=== PATIENT | male | born 1970 | race Caucasian/White ===

== ENCOUNTER 2021-01-08 19:58 | Observation (INO) | payer MEDICAID, OTHER, SELFPAY ==
--- NOTE | ~2021-01-08 | XR_ITS ---
EXAMINATION: XR CHEST CLINICAL INFORMATION: Cough COMPARISON: None TECHNIQUE: Frontal view of the chest was obtained. FINDINGS: No significant abnormality is noted involving the heart, lungs, mediastinum, bony thorax or soft tissues. XR/XR chest 1V IMPRESSION: Unremarkable examination.
--- NOTE | ~2021-01-08 | CT_ITS ---
EXAMINATION: CT HEAD WITHOUT CONTRAST CT CERVICAL SPINE WITHOUT CONTRAST CLINICAL INFORMATION: Altered mental status. Fall COMPARISON: None. TECHNIQUE: Imaging was performed from the skull base to vertex without intravenous administration of contrast. In addition, helical noncontrast CT imaging was acquired through the cervical spine and source images were reviewed along with axial reconstructions and sagittal and coronal MPRs. [This CT examination was performed using dose optimization techniques as appropriate, variously including the following: *Automated exposure control *Adjustment of mA and/or kV according to patient size (this includes techniques or standardized protocols for targeted exams where dose is matched to indication/reason for exam; i.e. extremities or head) *Use of iterative reconstruction technique] DLP: 1091 mGy-cm FINDINGS: HEAD: No intracranial mass, hemorrhage, or midline shift is visualized. The ventricles and sulci are age-appropriate. No extra-axial collections are identified. Scattered mucosal thickening in the inferior frontal sinuses bilateral maxillary and ethmoid sinuses. Small volume of mucosal thickening in the left sphenoid sinus. Mastoid air cells and middle ear cavities are normally aerated. CERVICAL SPINE: There is no evidence of acute cervical spine fracture. Vertebral bodies remain normal in height. Cervical vertebrae have normal alignment. Cervical disc heights are normal. The facet joints are normal. Minor degenerative lipping at the posterior uncinate process at C4-C5 and C5-C6. Normal foramina though remain open bilaterally. No pre- or paravertebral soft tissue abnormality is identified. Limited assessment of the lung apices is unremarkable. CT/CT cervical spine wo con IMPRESSION: 1. No acute intracranial pathology. 2. No CT evidence of acute cervical spine fracture or traumatic subluxation 3. Sinus disease.
[2021-01-08 20:08] VITALS: BP 134/78; PULSE 66; RESP 16; TEMP 36.9; O2SAT 97; BMI 26.6
[2021-01-08 20:13] VITALS: BP 156/98; PULSE 82; O2SAT 97
--- NOTE | 2021-01-08 20:30 | PC.NURSE ---
PT ARRIVES VIA AMBULANCE AFTER FALLING AND HITTING BACK OF HEAD WITH NO ACTIVE BLEEDING. PT IS ON BLOOD THINNERS FROM HX OF CVA. 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 PT ARRIVES ALERT RESPIRATIONS EASY, N/L, SKIN W/D. IN ROOM FOR EVAL..
--- NOTE | 2021-01-08 20:40 | ECG_ITS ---
Test Reason : FALL Blood Pressure : / mmHG Vent. Rate : 063 BPM Atrial Rate : 063 BPM P-R Int : 174 ms QRS Dur : 092 ms QT Int : 400 ms P-R-T Axes : 034 044 020 degrees QTc Int : 409 ms Normal sinus rhythm Normal ECG No previous ECGs available Referred By: Purvi Saini Electronically Signed By:Dawit Malone
--- NOTE | 2021-01-08 20:44 | ED_ITS ---
HPI - Fall General Chief Complaint: Fall Stated Complaint: dizzy, fall, blood thinners Time Seen by Provider: 01/08/21 20:40 History of Present Illness HPI Narrative: Patient 50 years old history of coronary artery disease. Presented today having syncopal episode patient was sitting there feeling lightheaded dizzy. There is no chest pain. Subsequently fell hit the top of his head. There was almost lost consciousness.. Patient complaining of minimal nausea. No vomiting. No focal weakness. Patient is from home. No cough no congestion or upper respiratory symptoms no diaphoresis. Patient not on any blood thinners. Related Data Allergies Allergy/AdvReac Type Severity Reaction Status Date / Time No Known Allergies Allergy Verified 01/08/21 20:40 Review of Systems Review of Systems: Constitutional: No Weight loss, No Fever, No Chills, No Night Sweats, No Fatigue, No Malaise ENT/Mouth: No Hearing loss, No Ear Pain, No Nasal Congestion, No Sinus Pain, No Hoarseness, No sore throat, No Rhinorrhea, No Swallowing Difficulty Eyes: No Eye Pain, No Swelling, No Redness, No Foreign Body, No Discharge, No Vision Changes Cardiovascular: No Chest Pain, No SOB, No Dyspnea on Exertion, No Orthopnea, No Edema, No Palpitations Respiratory: No Cough, No Sputum, No Wheezing, No Smoke Exposure, No Dyspnea Gastrointestinal: No Nausea, No Vomiting, No Diarrhea, No Constipation, No abdominal Pain, No Hematochezia, No Melena Genitourinary: no irregular bleeding, No Dysuria, No Urinary Frequency, No Hematuria, No Urinary Incontinence, No Urgency, No Flank Pain, No Urinary Flow Changes, No Hesitancy Musculoskeletal: No joint pain, No Myalgias, No Joint Swelling Skin: No Skin Lesions, No rash Neuro: Positive Weakness, No Numbness, No Paresthesias, No Loss of Consciousness, positive Dizziness, No Headache Psych: No Anxiety/Panic, No Depression, No SI/HI/AH/VH, No Social Issues, Heme/Lymph: No Bruising, No Bleeding,No Lymphadenopathy Endocrine: No Polyuria, No Polydipsia, No Temperature Intolerance [facility] Past Medical History Attestation statement: The following information was validated with the patient. Medical History CVA (cerebral vascular accident) Social History Social History Advance Directives: No Physical Exam Vital Signs: Vital Signs: Last Vital Signs Temp 97.9 F 01/08/21 22:13 Pulse 68 01/09/21 00:00 Resp 16 01/09/21 00:00 BP 128/72 01/09/21 00:00 Pulse Ox 99 01/08/21 22:13 Body Mass Index 26.6 Appearance: Alert. Oriented X3. No acute distress. Eyes: Pupils equal, round and reactive to light. ENT: Pharynx normal. Neck: Normal inspection. C-spine immobilized secondary to distracting injury. No lymph nodes noted. No crepitus CVS: Normal heart rate and rhythm. Pulses normal. Normal S1 and S2 Respiratory: No respiratory distress. Breath sounds normal. No Wheezing. No rales Abdomen: Soft and nontender. No rigidity. No distention. good BS x4 Skin: Skin warm and dry. Normal skin color. Normal skin turgor. Extremities: No lower extremity edema. Neurovascular intact to all extremities. No Lacerations. No Rash Neuro: Oriented X 3. No motor deficit. No sensory deficit. Moving all extermities. No slurred speech MDM - Fall MDM Narrative Medical decision making narrative: Patient previous history of GA. Positive near syncopal episode. Still feel lightheaded after IV fluid monitoring. Will admit for observation overnight. Currently in stable condition. Patient did not have chest pain at the time. Medical Records Attestation: I reviewed the patient's medical records. Lab Data Attestation: I reviewed the patient's lab results. Result diagrams: 01/08/21 20:54 01/08/21 20:54 Labs: Lab Results 01/08/21 01/08/21 01/08/21 Range/Units 20:54 20:54 20:54 WBC 6.5 (4.8-10.8) X10*3/uL RBC 4.60 (4.60-5.80) X10*6/uL Hgb 14.3 (14.0-18.0) g/dl Hct 43.1 (42-52) % MCV 93.7 (80-98) fL MCH 31.1 (27.0-33.0) pg MCHC 33.2 (31.0-36.0) g/dl RDW 12.4 (11.0-16.0) % Plt Count 276 (160-400) X10*3/uL MPV 10.0 (9.4-12.4) fL Immature Gran % (Auto) 0.2 (0.0-0.4) % Neut % (Auto) 66.0 (45-73) % Lymph % (Auto) 24.8 (20-40) % [place] % (Auto) 7.3 (2-11) % Eos % (Auto) 1.2 (0-4) % Baso % (Auto) 0.5 (0-2) % Lymph # (Auto) 1.6 (1.2-4.9) X10*3/uL [place] # (Auto) 0.5 (0.1-1.2) X10*3/uL Eos # (Auto) 0.1 (0.0-0.4) X10*3/uL Baso # (Auto) 0.0 (0.0-0.2) X10*3/uL Abs Immat Gran (auto) 0.01 (0.00-0.03) X10*3/uL Absolute Neuts (auto) 4.3 (2.0-8.3) X10*3/uL Absolute Nucleated RBC 0.000 (0.0-0.012) X10*3/uL Nucleated RBC % (auto) 0.0 (0.0-0.2) /100WBC PT 12.8 (10.8-13.0) SEC INR 1.1 (0.9-1.1) Sodium 140 (135-145) mmol/L Potassium 4.0 (3.3-5.1) mmol/L Chloride 104 (96-108) mmol/L Carbon Dioxide 28 (22-29) mmol/L Anion Gap 12 (12-20) BUN 20 H (9-16) mg/dL Creatinine 1.10 (0.5-1.4) mg/dL Estim Creat Clear Calc 74.1 Estimated GFR > 60 Random Glucose 101 (60-115) mg/dL Calcium 9.0 (8.4-10.2) mg/dL Total Bilirubin 0.6 (0.0-1.0) mg/dL Direct Bilirubin 0.2 (0.0-0.5) mg/dL AST 16 (5-37) U/L ALT 14 (0-40) U/L Alkaline Phosphatase 77 (39-117) U/L Troponin I High Sens (<3.5-35.0) ng/L Total Protein 7.1 (6.5-8.0) g/dL Albumin 4.4 (3.5-5.0) g/dL 01/08/21 Range/Units 20:54 WBC (4.8-10.8) X10*3/uL RBC (4.60-5.80) X10*6/uL Hgb (14.0-18.0) g/dl Hct (42-52) % MCV (80-98) fL MCH (27.0-33.0) pg MCHC (31.0-36.0) g/dl RDW (11.0-16.0) % Plt Count (160-400) X10*3/uL MPV (9.4-12.4) fL Immature Gran % (Auto) (0.0-0.4) % Neut % (Auto) (45-73) % Lymph % (Auto) (20-40) % [place] % (Auto) (2-11) % Eos % (Auto) (0-4) % Baso % (Auto) (0-2) % Lymph # (Auto) (1.2-4.9) X10*3/uL [place] # (Auto) (0.1-1.2) X10*3/uL Eos # (Auto) (0.0-0.4) X10*3/uL Baso # (Auto) (0.0-0.2) X10*3/uL Abs Immat Gran (auto) (0.00-0.03) X10*3/uL Absolute Neuts (auto) (2.0-8.3) X10*3/uL Absolute Nucleated RBC (0.0-0.012) X10*3/uL Nucleated RBC % (auto) (0.0-0.2) /100WBC PT (10.8-13.0) SEC INR (0.9-1.1) Sodium (135-145) mmol/L Potassium (3.3-5.1) mmol/L Chloride (96-108) mmol/L Carbon Dioxide (22-29) mmol/L Anion Gap (12-20) BUN (9-16) mg/dL Creatinine (0.5-1.4) mg/dL Estim Creat Clear Calc Estimated GFR Random Glucose (60-115) mg/dL Calcium (8.4-10.2) mg/dL Total Bilirubin (0.0-1.0) mg/dL Direct Bilirubin (0.0-0.5) mg/dL AST (5-37) U/L ALT (0-40) U/L Alkaline Phosphatase (39-117) U/L Troponin I High Sens < 3.5 (<3.5-35.0) ng/L Total Protein (6.5-8.0) g/dL Albumin (3.5-5.0) g/dL ECG Data Interpretation: Sinus heart rate is 60 NM QRS QT within normal limits is no acute ST segment elevation noted. Discharge Plan Discharge Clinical Impression: Near syncope Patient Disposition: Admitted as Observation
--- NOTE | 2021-01-08 21:08 | PC.NURSE ---
LABS DRAWN TO LAB FOR ERICH.
[2021-01-08 21:10] LABS: Basophils Percent Auto 0.5 % (0-2); Eosinophils Absolute Auto 0.1 X10*3/uL (0.0-0.4); Eosinophils Percent Auto 1.2 % (0-4); Hematocrit 43.1 % (42-52); Hemoglobin 14.3 g/dl (14.0-18.0); Imm Gran Abs Auto 0.01 X10*3/uL (0.00-0.03); Imm Gran Pct Auto 0.2 % (0.0-0.4); Lymphocytes Absolute Auto 1.6 X10*3/uL (1.2-4.9); Lymphocytes Percent Auto 24.8 % (20-40); MANUAL DIFF FLAG NO; Mean Corpuscular HGB Conc 33.2 g/dl (31.0-36.0); Mean Corpuscular Hemoglobin 31.1 pg (27.0-33.0); Mean Corpuscular Volume 93.7 fL (80-98); Monocytes Absolute Auto 0.5 X10*3/uL (0.1-1.2); Monocytes Percent Auto 7.3 % (2-11); Neutrophils Absolute Auto 4.3 X10*3/uL (2.0-8.3); Platelet Count 276 X10*3/uL (160-400); Red Cell Distribution Width 12.4 % (11.0-16.0); White Blood Count 6.5 X10*3/uL (4.8-10.8)
[2021-01-08 21:21] LABS: INTERNATIONAL NORM RATIO 1.1 (0.9-1.1); Prothrombin Time 12.8 SEC (10.8-13.0)
[2021-01-08 21:31] LABS: Alanine Aminotransferase 14 U/L (0-40); Albumin Level 4.4 g/dL (3.5-5.0); Alkaline Phosphatase 77 U/L (39-117); Anion Gap 12 (12-20); Aspartate Amino Transferase 16 U/L (5-37); Bilirubin Direct 0.2 mg/dL (0.0-0.5); Bilirubin Total 0.6 mg/dL (0.0-1.0); Blood Urea Nitrogen 20 mg/dL (9-16); Carbon Dioxide 28 mmol/L (22-29); Chloride 104 mmol/L (96-108); Creatinine Clr Calc Pharmacy 74.1; Estimated Glomerular Filt Rate > 60; Glucose Random 101 mg/dL (60-115); Sodium 140 mmol/L (135-145); Total Protein 7.1 g/dL (6.5-8.0)
[2021-01-08 21:36] LABS: Troponin-I High Sensitivity < 3.5 ng/L (<3.5-35.0)
[2021-01-08 22:09] VITALS: BP 122/76; BP 131/71; PULSE 65
[2021-01-08 22:11] VITALS: BP 141/66; PULSE 69
[2021-01-08 22:13] VITALS: BP 141/66; PULSE 70; RESP 18; TEMP 36.6; O2SAT 99
[2021-01-09] VITALS (8 sets, daily range): BP systolic 122–130; BP diastolic 62–82; PULSE 62–77; RESP 16; TEMP 35.9; O2SAT 98–99
--- NOTE | 2021-01-09 00:18 | PC.NURSE ---
pt denies any complaints. Ice pack applied to head. pt denies any complaints.
--- NOTE | 2021-01-09 01:00 | P.HPHOSP_ITS ---
History of Present Illness Date of Service: 01/09/21 Chief Complaint: Near syncope 50-year-old male with a past medical history of coronary artery disease presented to the hospital with a chief complaint of dizziness/fall. Patient mentioned that he was sitting in the chair and subsequently felt lightheaded and dizzy and fell on the floor, hit his head. Denied any chest pain palpitations. Denies any vomiting. Denies any fever chills. Denies any cough. Mentions that he has been drinking enough fluids. Denies any GI or symptoms. Review of all other systems is negative except mentioned above ER course: Per ER team patient's exam was nonfocal, CT head and CT spine showed no acute findings, troponin negative, EKG nonischemic, requested for an admission for observation under telemetry. PENDING SALE TO [facility] Medical History CVA (cerebral vascular accident) Social History Alcohol intake: never Smoking Status: Never smoker service: No Current occupational status: unemployed Meds Allergies Allergy/AdvReac Type Severity Reaction Status Date / Time No Known Allergies Allergy Verified 01/08/21 20:40 Active Medications: Current Medications Generic Name Dose Route Start Last Admin Trade Name Freq PRN Reason Stop Dose Admin Acetaminophen 650 mg 01/09/21 00:57 Acetaminophen 325 Mg Tablet PO Q6H PRN Pain, Mild (Pain Scale 1-3) Pharmacy Consult 1 each 01/09/21 00:34 Consult Rx Perform Med Rec MISCELLANE ONCE PRN Consult order Sodium Chloride 3 ml 01/09/21 08:00 0.9 % Sodium Chloride Flush 3 Ml Syringe [facility] Medications Medication Instructions Recorded Confirmed Last Taken Type HIGH BLOOD PRESSURE MEDICATION 01/09/21 Unknown History aspirin 81 mg PO DAILY 01/09/21 01/09/21 Unknown History Physical Exam Vital Signs and Narrative: Vital Signs: Last Vital Signs Temp 97.9 F 01/08/21 22:13 Pulse 68 01/09/21 00:00 Resp 16 01/09/21 00:00 BP 128/72 01/09/21 00:00 Pulse Ox 99 01/08/21 22:13 Body Mass Index 26.6 Gen: Appears be in no acute distress HEENT: NCAT, Moist mucosa. Pulmonary: Vesicular breath sounds, fair air entry CVS: Normal S1-S2 Abdomen: BS+, Soft, Nontender Extremities: Warm well perfused Neuro: Alert and awake. Grossly nonfocal Results Labs CBC and Chem 7: 01/09/21 06:32 01/09/21 06:32 Labs: Laboratory Results - last 24 hr 01/08/21 01/08/21 01/08/21 20:54 20:54 20:54 MCV 93.7 MCH 31.1 MCHC 33.2 RDW 12.4 Plt Count 276 MPV 10.0 Immature Gran % (Auto) 0.2 Neut % (Auto) 66.0 Lymph % (Auto) 24.8 [place] % (Auto) 7.3 Eos % (Auto) 1.2 Baso % (Auto) 0.5 Lymph # (Auto) 1.6 [place] # (Auto) 0.5 Eos # (Auto) 0.1 Baso # (Auto) 0.0 Abs Immat Gran (auto) 0.01 Absolute Neuts (auto) 4.3 Absolute Nucleated RBC 0.000 Nucleated RBC % (auto) 0.0 PT 12.8 INR 1.1 Anion Gap 12 Estim Creat Clear Calc 74.1 Estimated GFR > 60 Random Glucose 101 Calcium 9.0 Total Bilirubin 0.6 Direct Bilirubin 0.2 AST 16 ALT 14 Alkaline Phosphatase 77 Troponin I High Sens Total Protein 7.1 Albumin 4.4 01/08/21 20:54 MCV MCH MCHC RDW Plt Count MPV Immature Gran % (Auto) Neut % (Auto) Lymph % (Auto) [place] % (Auto) Eos % (Auto) Baso % (Auto) Lymph # (Auto) [place] # (Auto) Eos # (Auto) Baso # (Auto) Abs Immat Gran (auto) Absolute Neuts (auto) Absolute Nucleated RBC Nucleated RBC % (auto) PT INR Anion Gap Estim Creat Clear Calc Estimated GFR Random Glucose Calcium Total Bilirubin Direct Bilirubin AST ALT Alkaline Phosphatase Troponin I High Sens < 3.5 Total Protein Albumin Imaging Radiologist's Impressions: Impressions Cervical Spine CT 01/08/21 20:40 IMPRESSION: 1. No acute intracranial pathology. 2. No CT evidence of acute cervical spine fracture or traumatic subluxation 3. Sinus disease. Chest X-Ray 01/08/21 20:40 IMPRESSION: Unremarkable examination. Head CT 01/08/21 20:40 IMPRESSION: 1. No acute intracranial pathology. 2. No CT evidence of acute cervical spine fracture or traumatic subluxation 3. Sinus disease. Assessment and Plan (1) Near syncope: Status: Resolved 50-year-old male with a past medical history of CAD presented to the hospital with a chief complaint of dizziness/fall. Near syncope: Nonfocal exam. Imaging negative for any fracture or acute findings. EKG nonischemic. Troponins negative. Second troponin pending. Fall precautions Telemetry Cardiology consult Echocardiogram Will obtain orthostatic vitals DVT prophylaxis: SCD boots Code status: Full code
[2021-01-09 03:13] LABS: COVID-19 Test Negative (Negative); IDNOW Serial# 9DD0AD1C
[2021-01-09 03:34] LABS: Troponin-I High Sensitivity < 3.5 ng/L (<3.5-35.0)
--- NOTE | 2021-01-09 06:34 | PC.NURSE ---
LAB IN ROOM FOR LAB DRAWN. PT DENIES ANY COMPLAINTS AT THIS TIME. VS OBTAINED. PT ON MONITOR WITH HR 68 WITH NSR. PT AWAITING FOR ROOM ASSIGNMENT.
[2021-01-09 06:55] LABS: MANUAL DIFF FLAG NO
[2021-01-09 07:10] LABS: Basophils Percent Auto 0.4 % (0-2); Eosinophils Absolute Auto 0.2 X10*3/uL (0.0-0.4); Eosinophils Percent Auto 3.4 % (0-4); Hematocrit 43.4 % (42-52); Hemoglobin 14.5 g/dl (14.0-18.0); Imm Gran Abs Auto 0.01 X10*3/uL (0.00-0.03); Imm Gran Pct Auto 0.1 % (0.0-0.4); Lymphocytes Absolute Auto 2.2 X10*3/uL (1.2-4.9); Lymphocytes Percent Auto 33.2 % (20-40); Mean Corpuscular HGB Conc 33.4 g/dl (31.0-36.0); Mean Corpuscular Hemoglobin 31.3 pg (27.0-33.0); Mean Corpuscular Volume 93.7 fL (80-98); Mean Platelet Volume 10.3 fL (9.4-12.4); Monocytes Absolute Auto 0.6 X10*3/uL (0.1-1.2); Monocytes Percent Auto 9.1 % (2-11); Neutrophils Absolute Auto 3.6 X10*3/uL (2.0-8.3); Neutrophils Percent Auto 53.8 % (45-73); Platelet Count 269 X10*3/uL (160-400); Red Blood Count 4.63 X10*6/uL (4.60-5.80); Red Cell Distribution Width 12.3 % (11.0-16.0); White Blood Count 6.7 X10*3/uL (4.8-10.8)
[2021-01-09 07:24] LABS: Anion Gap 11 (12-20); Blood Urea Nitrogen 21 mg/dL (9-16); Carbon Dioxide 29 mmol/L (22-29); Chloride 106 mmol/L (96-108); Creatinine Clr Calc Pharmacy 80.7; Estimated Glomerular Filt Rate > 60; Glucose Random 100 mg/dL (60-115); Potassium 4.1 mmol/L (3.3-5.1); Sodium 142 mmol/L (135-145)
[2021-01-09] MEDS: 0.9 % Sodium Chloride Flush 3 ML SYRINGE IVFLUSH (08:24)
[2021-01-09] MEDS: Acetaminophen 325 MG TABLET 650 MG PO (08:30)
--- NOTE | 2021-01-09 09:07 | PM.CNCAR ---
History of Present Illness History of Present Illness Date of Service: 01/09/21 Requesting physician: Mikhail Miller Chief complaint: Near syncope Narrative: 50-year-old gentleman with reported h/o CAD presenting for dizziness. He was watching television when he developed sudden onset dizziness which was a spinning sensation. He felt he will pass out but did not pass out. He has symptoms with head movement. He has no diplopia. also has vertigo although denies viral illness in her and himself. No CP or SOB. Review of Systems Review of Systems: Dizziness PMFSH Past Medical History Medical History CVA (cerebral vascular accident) Social History Social History Alcohol intake: never Smoking Status: Never smoker Use of substances other than those prescribed or required for medical reasons: No Advance Directives: No service: No Current occupational status: unemployed Meds Allergies Allergy/AdvReac Type Severity Reaction Status Date / Time No Known Allergies Allergy Verified 01/08/21 20:40 Active Medications: Current Medications Generic Name Dose Route Start Last Admin Trade Name Freq PRN Reason Stop Dose Admin Acetaminophen 650 mg 01/09/21 00:57 01/09/21 08:30 Acetaminophen 325 Mg Tablet PO 650 mg Q6H PRN Administration Pain, Mild (Pain Scale 1-3) Pharmacy Consult 1 each 01/09/21 00:34 Consult Rx Perform Med Rec MISCELLANE ONCE PRN Consult order Sodium Chloride 3 ml 01/09/21 08:00 01/09/21 08:24 0.9 % Sodium Chloride Flush 3 Ml Syringe IVFLUSH 3 ml QSHIFT ANN Administration Home Medications Medication Instructions Recorded Confirmed Last Taken Type HIGH BLOOD PRESSURE MEDICATION 01/09/21 Unknown History aspirin 81 mg PO DAILY 01/09/21 01/09/21 Unknown History Physical Exam Vital Signs: Vital Signs: Last Vital Signs Temp 97.9 F 01/08/21 22:13 Pulse 77 01/09/21 08:31 Resp 16 01/09/21 08:31 BP 130/78 01/09/21 08:31 Pulse Ox 98 01/09/21 08:31 Body Mass Index 26.6 GENERAL APPEARANCE: in no acute distress, well developed, well nourished. HEENT: unremarkable. HEAD: normocephalic, atraumatic. NECK/THYROID: no carotid bruit, no jugular venous distention. SKIN: no suspicious lesions, warm and dry. HEART: no murmurs, regular rate and rhythm, S1, S2 normal. LUNGS: clear to auscultation bilaterally. ABDOMEN: normal, bowel sounds present, soft, nontender, nondistended. EXTREMITIES: no clubbing, cyanosis, or edema. PERIPHERAL PULSES: equal. NEUROLOGIC: nonfocal, alert and oriented. No diplopia PSYCH: mood/affect full range. Results Labs and Meds Result diagrams: 01/09/21 06:32 01/09/21 06:32 Lab results: Laboratory Results - last 24 hr 01/08/21 01/08/21 01/08/21 20:54 20:54 20:54 WBC 6.5 RBC 4.60 Hgb 14.3 Hct 43.1 MCV 93.7 MCH 31.1 MCHC 33.2 RDW 12.4 Plt Count 276 MPV 10.0 Immature Gran % (Auto) 0.2 Neut % (Auto) 66.0 Lymph % (Auto) 24.8 [place] % (Auto) 7.3 Eos % (Auto) 1.2 Baso % (Auto) 0.5 Lymph # (Auto) 1.6 [place] # (Auto) 0.5 Eos # (Auto) 0.1 Baso # (Auto) 0.0 Abs Immat Gran (auto) 0.01 Absolute Neuts (auto) 4.3 Absolute Nucleated RBC 0.000 Nucleated RBC % (auto) 0.0 PT 12.8 INR 1.1 Sodium 140 Potassium 4.0 Chloride 104 Carbon Dioxide 28 Anion Gap 12 BUN 20 H Creatinine 1.10 Estim Creat Clear Calc 74.1 Estimated GFR > 60 Random Glucose 101 Calcium 9.0 Total Bilirubin 0.6 Direct Bilirubin 0.2 AST 16 ALT 14 Alkaline Phosphatase 77 Troponin I High Sens Total Protein 7.1 Albumin 4.4 COVID-19 (RYAN) COVID-19 Clin Com 01/08/21 01/09/21 01/09/21 20:54 02:39 02:50 WBC RBC Hgb Hct MCV MCH MCHC RDW Plt Count MPV Immature Gran % (Auto) Neut % (Auto) Lymph % (Auto) [place] % (Auto) Eos % (Auto) Baso % (Auto) Lymph # (Auto) [place] # (Auto) Eos # (Auto) Baso # (Auto) Abs Immat Gran (auto) Absolute Neuts (auto) Absolute Nucleated RBC Nucleated RBC % (auto) PT INR Sodium Potassium Chloride Carbon Dioxide Anion Gap BUN Creatinine Estim Creat Clear Calc Estimated GFR Random Glucose Calcium Total Bilirubin Direct Bilirubin AST ALT Alkaline Phosphatase Troponin I High Sens < 3.5 < 3.5 Total Protein Albumin COVID-19 (RYAN) Negative COVID-19 Clin Com See Note 01/09/21 01/09/21 06:32 06:32 WBC 6.7 RBC 4.63 Hgb 14.5 Hct 43.4 MCV 93.7 MCH 31.3 MCHC 33.4 RDW 12.3 Plt Count 269 MPV 10.3 Immature Gran % (Auto) 0.1 Neut % (Auto) 53.8 Lymph % (Auto) 33.2 [place] % (Auto) 9.1 Eos % (Auto) 3.4 Baso % (Auto) 0.4 Lymph # (Auto) 2.2 [place] # (Auto) 0.6 Eos # (Auto) 0.2 Baso # (Auto) 0.0 Abs Immat Gran (auto) 0.01 Absolute Neuts (auto) 3.6 Absolute Nucleated RBC 0.000 Nucleated RBC % (auto) 0.0 PT INR Sodium 142 Potassium 4.1 Chloride 106 Carbon Dioxide 29 Anion Gap 11 L BUN 21 H Creatinine 1.01 Estim Creat Clear Calc 80.7 Estimated GFR > 60 Random Glucose 100 Calcium 9.0 Total Bilirubin Direct Bilirubin AST ALT Alkaline Phosphatase Troponin I High Sens Total Protein Albumin COVID-19 (RYAN) COVID-19 Clin Com Imaging Radiologist's impression: Impressions Cervical Spine CT 01/08/21 20:40 IMPRESSION: 1. No acute intracranial pathology. 2. No CT evidence of acute cervical spine fracture or traumatic subluxation 3. Sinus disease. Chest X-Ray 01/08/21 20:40 IMPRESSION: Unremarkable examination. Head CT 01/08/21 20:40 IMPRESSION: 1. No acute intracranial pathology. 2. No CT evidence of acute cervical spine fracture or traumatic subluxation 3. Sinus disease. Assessment and Plan (1) Near syncope: Status: Acute Pleasant 50-year-old gentleman presenting with dizziness which is more like vertigo. He is denying any viral illness. Clearly he is getting symptoms when he moves his head. No arrhythmia noticed. Blood workup and biomarkers are normal. EKG did not show any significant issues otherwise. He has known history of coronary disease but has no symptoms right now. Please treat with meclizine. For his reported history of coronary disease he should be on baby aspirin and statin. Thank you for allowing me to participate in the care of your patient. Please feel free to contact me if you have any questions.
[2021-01-09] MEDS: Meclizine HCl 25 MG TABLET PO (10:09)
[2021-01-09] MEDS: Ibuprofen 400 MG TABLET PO (11:34)
--- NOTE | 2021-01-09 11:45 | MHC.CM.PN ---
PT REPORTS HE LIVES ALONE AND HAS NO SERVICES OR DME. PT STATES HE ONLY MOVED TO [place]PLE WEE[place] AGO [place] SO HE DOES NOT YET HAVE A PCP OR HEALTH INSURANCE. PT REPORTS HE DRIVES HIMSELF TO APPOINTMENTS. PT DOES NOT HAVE A HCP. EDUCATION PROVIDED, PT DECLINED TO COMPLETE ONE TODAY. CM WILL SEND A REFERRAL TO [facility] TO ASSIST PT IN APPLYING FOR [facility] PT WILL DC HOME WITH NO SERVICES PT WILL SELF ARRANGE TRANSPORT
--- NOTE | 2021-01-09 12:43 | PC.NURSE ---
pt reported headache and has been medicated for pain. He is sleeping, will reassess when pt awake.
--- NOTE | 2021-01-09 16:40 | P.DS_ITS ---
DS: Providers Provider Date of Service: 01/09/21 Date of admission: 01/09/21 00:57 Primary care physician: None Physician Consults: 01/09/21 00:57 Consult to Cardiology Routine Consulting Provider: Dawit Malone Reason for consultation: Near syncope DS: Diagnosis Discharge Diagnosis (1) Near syncope: Status: Acute DS: Medications Discharge Medications Home Medications: Home Medications Medication Instructions Recorded Confirmed HIGH BLOOD PRESSURE MEDICATION 01/09/21 aspirin 81 mg PO DAILY 01/09/21 01/09/21 DS: Summary Hospital Course Hospital Course: History of presenting illness Chief Complaint: Near syncope 50-year-old male with a past medical history of coronary artery disease presented to the hospital with a chief complaint of dizziness/fall. Patient mentioned that he was sitting in the chair and subsequently felt lightheaded and dizzy and fell on the floor, hit his head. Denied any chest pain palpitations. Denies any vomiting. Denies any fever chills. Denies any cough. Mentions that he has been drinking enough fluids. Denies any GI or symptoms. Review of all other systems is negative except mentioned above ER course: Per ER team patient's exam was nonfocal, CT head and CT spine showed no acute findings, troponin negative, EKG nonischemic, requested for an admission for observation under telemetry. Hospital course Patient presented to emergency room with symptoms of dizziness like spinning of room, he denied any associated symptoms of URI no runny nose nose sinus symptoms no earache no ringing in the ears no hearing loss, patient dizziness completely resolved while he was in the ER after receiving 1 dose of meclizine, patient c omplained of mild headache for which she received Tylenol and Motrin with complete resolution of symptoms at present patient feels at baseline and is feeling ready to be discharged home, patient was evaluated by Cardiology, his noted to have abnormal troponin no EKG findings no a arrhythmias, orthostatic blood pressures are normal, therefore patient is being discharged home with recommendation to continue aspirin and home medication patient with known history of coronary artery disease is supposed to be on aspirin and statins , patient is on aware of his home medication recommended to follow-up with PCP to discuss his home medications. Time Spent with Patient Time attestation: Total time spent providing and/or coordinating discharge services: Discharge coordination time: Greater than 30 minutes Physical Exam Vital Signs: Vital Signs: Last Vital Signs Temp 97.9 F 03/31/21 22:13 Pulse 62 01/09/21 11:32 Resp 16 01/09/21 11:32 BP 125/62 01/09/21 11:32 Pulse Ox 98 01/09/21 11:32 Body Mass Index 26.6 General patient resting comfortably in no acute distress. Oral mucosa moist Neck is supple no JVD. CVS regular rate rhythm, Respiratory lungs clear to auscultation, no respiratory distress, no wheeze, no rhonchi. Gastrointestinal abdomen soft, nontender, bowel sounds audible, no no guarding , no rigidity. Extremities no edema. Neuro no nystagmus, speech clear, no cerebellar sign, normal motor is strength and tone bilateral upper and lower extremity Skin no rash DS: Data Data Completed and Pending Labs on day of discharge: Laboratory Results - last 24 hr 01/08/21 01/08/21 01/08/21 20:54 20:54 20:54 WBC 6.5 RBC 4.60 Hgb 14.3 Hct 43.1 MCV 93.7 MCH 31.1 MCHC 33.2 RDW 12.4 Plt Count 276 MPV 10.0 Immature Gran % (Auto) 0.2 Neut % (Auto) 66.0 Lymph % (Auto) 24.8 [place] % (Auto) 7.3 Eos % (Auto) 1.2 Baso % (Auto) 0.5 Lymph # (Auto) 1.6 [place] # (Auto) 0.5 Eos # (Auto) 0.1 Baso # (Auto) 0.0 Abs Immat Gran (auto) 0.01 Absolute Neuts (auto) 4.3 Absolute Nucleated RBC 0.000 Nucleated RBC % (auto) 0.0 PT 12.8 INR 1.1 Sodium 140 Potassium 4.0 Chloride 104 Carbon Dioxide 28 Anion Gap 12 BUN 20 H Creatinine 1.10 Estim Creat Clear Calc 74.1 Estimated GFR > 60 Random Glucose 101 Calcium 9.0 Total Bilirubin 0.6 Direct Bilirubin 0.2 AST 16 ALT 14 Alkaline Phosphatase 77 Troponin I High Sens Total Protein 7.1 Albumin 4.4 COVID-19 (RYAN) COVID-19 Clin Com 01/08/21 01/09/21 01/09/21 20:54 02:39 02:50 WBC RBC Hgb Hct MCV MCH MCHC RDW Plt Count MPV Immature Gran % (Auto) Neut % (Auto) Lymph % (Auto) [place] % (Auto) Eos % (Auto) Baso % (Auto) Lymph # (Auto) [place] # (Auto) Eos # (Auto) Baso # (Auto) Abs Immat Gran (auto) Absolute Neuts (auto) Absolute Nucleated RBC Nucleated RBC % (auto) PT INR Sodium Potassium Chloride Carbon Dioxide Anion Gap BUN Creatinine Estim Creat Clear Calc Estimated GFR Random Glucose Calcium Total Bilirubin Direct Bilirubin AST ALT Alkaline Phosphatase Troponin I High Sens < 3.5 < 3.5 Total Protein Albumin COVID-19 (RYAN) Negative COVID-19 Clin Com See Note 01/09/21 01/09/21 06:32 06:32 WBC 6.7 RBC 4.63 Hgb 14.5 Hct 43.4 MCV 93.7 MCH 31.3 MCHC 33.4 RDW 12.3 Plt Count 269 MPV 10.3 Immature Gran % (Auto) 0.1 Neut % (Auto) 53.8 Lymph % (Auto) 33.2 [place] % (Auto) 9.1 Eos % (Auto) 3.4 Baso % (Auto) 0.4 Lymph # (Auto) 2.2 [place] # (Auto) 0.6 Eos # (Auto) 0.2 Baso # (Auto) 0.0 Abs Immat Gran (auto) 0.01 Absolute Neuts (auto) 3.6 Absolute Nucleated RBC 0.000 Nucleated RBC % (auto) 0.0 PT INR Sodium 142 Potassium 4.1 Chloride 106 Carbon Dioxide 29 Anion Gap 11 L BUN 21 H Creatinine 1.01 Estim Creat Clear Calc 80.7 Estimated GFR > 60 Random Glucose 100 Calcium 9.0 Total Bilirubin Direct Bilirubin AST ALT Alkaline Phosphatase Troponin I High Sens Total Protein Albumin COVID-19 (RYAN) COVID-19 Clin Com Discharge Plan Discharge Patient Disposition: Home, Self-Care Referrals: Physician,None [Primary Care Provider] - Discharge Medications: Continued aspirin 81 mg Tablet,Delayed Release (Dr/Ec) 81 mg PO DAILY RF: 0 HIGH BLOOD PRESSURE MEDICATION RF: 0 Discharge Orders: Discharge Order (Routine); Ordered 01/09/21 Ordered By: Mikhail Miller Diet: low fat, low cholesterol Activity on Discharge: As tolerated Stand Alone Forms: Patient Portal Discharge page Care Plan Goals: Follow-up with primary care physician Health Concerns: Vertigo resolved Plan of Treatment: Follow-up with primary care physician in 1 week take home medication as previously prescribed by primary care physician and Cardiology
--- NOTE | 2021-01-09 16:50 | PC.NURSE ---
Patient brought up from ED for admission, upon arrival to floor, MD said patient was cleared for discharge. PER MD nothing further needed to be done, admission assessment not completed, VSS, SINUS RHYTHM on monitor. Patient was educated on following up with PCP, IV removed, cardiac cath lab radiology technologist removed, and given discharge instructions.
== END 2021-01-09 16:55 | disposition home or self-care (01) ==
LOC: HO.ED 01-09 00:34 → HO.EDOVER 01-09 07:33 → HO.S3 01-09 13:57
PROVIDERS: Admitting Provider Hospitalist; Emergency Provider Emergency Medicine Emergency Medical Services; Visit Provider Hospitalist
DX: R55 Syncope and collapse (principal); R41.82 Altered mental status, unspecified; S09.90XA Unspecified injury of head, initial encounter; W01.198A Fall on same level from slipping, tripping and stumbling with subsequent striking against other object, initial encounter; Y93.9 Activity, unspecified; Y92.009 Unspecified place in unspecified non-institutional (private) residence as the place of occurrence of the external cause; Y99.8 Other external cause status; R07.9 Chest pain, unspecified; R05 Cough; I25.10 Atherosclerotic heart disease of native coronary artery without angina pectoris; Z20.822 Contact with and (suspected) exposure to COVID-19; Z79.899 Other long term (current) drug therapy
CPT/HCPCS: 36415; 70450; 71045; 72125; 80048; 80076; 84484; 85025; 85610; 87635; 93005; 99218; 99285

== ENCOUNTER 2021-02-04 00:01 | Inpatient (IN) | payer MEDICAID, OTHER, SELFPAY ==
--- NOTE | ~2021-02-04 | MR_ITS ---
EXAMINATION: MR BRAIN WITHOUT CONTRAST CLINICAL INFORMATION: Possible CVA. COMPARISON: Head CT 02/04/2021. TECHNIQUE: Multiplanar, multisequence imaging of the brain was performed without intravenous contrast. FINDINGS: Punctate foci of elevated diffusion signal are seen within the right precentral gyrus on series 5 image 28/31 which may represent small foci of acute ischemia. No territorial infarction is seen. A minimal amount of nonspecific periventricular T2 hyperintensity is noted. No significant microangiopathy is seen. The ventricles are normal in size without evidence of hydrocephalus. The major arterial flow voids are preserved at the skull base. The orbital contents appear normal. There is scattered paranasal sinus mucosal thickening. MR/MR head/brain wo con IMPRESSION: Punctate foci of elevated diffusion signal in the right precentral gyrus suspected to represent small foci of acute ischemia. No other intracranial abnormality is seen.
--- NOTE | ~2021-02-04 | CT_ITS ---
EXAMINATION: CT HEAD WITHOUT CONTRAST CLINICAL INFORMATION: Dizziness. Right lateral thigh numbness. COMPARISON: 01/08/2021 TECHNIQUE: Contiguous axial imaging was performed from the skull base to vertex without intravenous contrast. This CT examination was performed using dose optimization techniques as appropriate, variously including the following: * Automated exposure control * Adjustment of mA and/or kV according to patient size (this includes techniques or standardized protocols for targeted exams where dose is matched to indication/reason for exam; i.e. extremities or head) Use of iterative reconstruction technique DLP: 741 mGy-cm. FINDINGS: There is no evidence of acute intracranial hemorrhage or territorial infarction. No abnormal mass effect or midline shift is seen. Nails to white matter differentiation is well preserved. No extra-axial fluid collections are identified. No hydrocephalus. No significant volume loss. There is no abnormal attenuation within the brain parenchyma. The osseous structures and soft tissues are normal. Mild opacification of the ethmoid air cells. The mastoid air cells and visualized portions of the paranasal sinuses are otherwise well aerated. CT/CT head/brain wo con IMPRESSION: No acute intracranial pathology.
--- NOTE | ~2021-02-04 | US_ITS ---
EXAMINATION: US EXTRACRANIAL CAROTID DUPLEX, BILATERAL CLINICAL INFORMATION: Dizziness COMPARISON: None TECHNIQUE: Real-time ultrasound and Doppler techniques (integrating B-mode 2-D vascular images, Doppler spectral analysis and color-flow Doppler imaging) were utilized to interrogate the extracranial carotid arteries, the vertebral arteries and proximal subclavian arteries bilaterally. The degree of stenosis is determined by criteria similar to NASCET. FINDINGS: Right Side: 1. There is no atherosclerotic plaque seen in the bifurcation/proximal ICA region. 2. The common carotid artery PSV proximally is 99 cm/s and distally 95 cm/s. 3. The proximal internal carotid artery velocities are 74 cm/s systolic and 30 cm/s diastolic. 4. The proximal external carotid artery PSV is 100 cm/s. 5. The vertebral artery shows antegrade flow. 6. The subclavian artery waveforms are normal. Left Side: 1. There is no atherosclerotic plaque seen in the bifurcation/proximal ICA region. 2. The common carotid artery PSV proximally is 93 cm/s and distally 73 cm/s. 3. The proximal internal carotid artery velocities are 52 cm/s systolic and 21 cm/s diastolic. 4. The proximal external carotid artery PSV is 90 cm/s. 5. The vertebral artery shows antegrade flow. 6. The subclavian artery waveforms are normal. US/US carotid duplex BI IMPRESSION: 1. RIGHT: Normal right internal carotid artery without atherosclerotic plaque or hemodynamically significant stenosis. 2. LEFT: Normal left internal carotid artery without atherosclerotic plaque or hemodynamically significant stenosis.
[2021-02-04 00:10] VITALS: BP 150/130; BP 154/81; PULSE 81; RESP 24; TEMP 36.7; O2SAT 96; BMI 24.8
--- NOTE | 2021-02-04 00:11 | ECG_ITS ---
Test Reason : DIZZINESS Blood Pressure : / mmHG Vent. Rate : 077 BPM Atrial Rate : 077 BPM P-R Int : 164 ms QRS Dur : 088 ms QT Int : 358 ms P-R-T Axes : 038 058 037 degrees QTc Int : 405 ms Normal sinus rhythm Normal ECG When compared to the previous EKG of No significant changes seen Referred By: Liana Medeiros Electronically Signed By:SOURAV BOYD MD
--- NOTE | 2021-02-04 00:13 | ED.NEUROSD ---
HPI - Neuro Symptoms/Deficit General Chief Complaint: Dizziness Stated Complaint: STROKE Time Seen by Provider: 02/04/21 00:11 Source: patient Mode of arrival: EMS History of Present Illness HPI Narrative: 50-year-old male with history of prior stroke approximately 8 years ago with right-sided deficits call the ambulance for high blood pressure, feeling dizzy, and complaints lateral right lower extremity numbness that has since almost completely resolved. During evaluation on the right side patient confirms that the decrease in strength as well as the evaluation of pronator drift is consistent with his prior findings after his previous stroke. Otherwise, patient denies any fevers, chills, recent illness, chest pain/palpitations and states he has not gotten his COVID-19 vaccine because he is ?afraid?. Related Data Home Medications Medication Instructions Recorded Confirmed aspirin 81 mg PO DAILY 01/09/21 02/04/21 hydrochlorothiazide 12.5 mg PO DAILY 02/04/21 02/04/21 Allergies Allergy/AdvReac Type Severity Reaction Status Date / Time gluten Allergy Rash Verified 02/04/21 00:41 Penicillins Allergy Rash Verified 02/04/21 00:40 Review of Systems Review of Systems: Pertinent positives and negatives as stated in HPI 10 point review systems is otherwise negative. [facility] Past Medical History Source: nursing notes reviewed Medical History CVA (cerebral vascular accident) Social History Social History Alcohol intake: never Smoking Status: Never smoker Advance Directives: No service: No Current occupational status: unemployed Physical Exam Vital Signs: Vital Signs: Last Vital Signs Temp 98.1 F 02/04/21 00:15 Pulse 92 02/04/21 02:21 Resp 18 02/04/21 02:21 BP 144/89 H 02/04/21 02:21 Pulse Ox 97 02/04/21 02:21 Body Mass Index 24.8 VITAL SIGNS: Reviewed. GENERAL: Well developed, well nourished, in no acute distress. HEAD: Normocephalic/atraumatic EYES: PERRLA, EOMI, patient has asymmetrical pupils at baseline (right greater than left) OROPHARYNX: no oral lesions noted, posterior pharynx clear NECK: Supple, no adenopathy LUNGS: Normal breath sounds. No adventitious sounds or accessory muscle use. SpO2<98> CARDIOVASCULAR: Regular rate and rhythm without noted murmurs ABDOMEN: Soft, non-tender, non-distended with bowel sounds. NEUROLOGIC: Alert and oriented x 4. Please refer to NIHSS. No acute findings Course Course Course Narrative: 50-year-old male with history and clinical presentation of lightheadedness and transient numbness of the right lower extremity at the lateral thigh that had almost completely resolved upon arrival to the emergency department. Otherwise, there were no neurological findings and so the decision was made to evaluate outside of the stroke protocol. Review of all investigations is negative for any acute findings such as infection, anemia, electrolyte abnormalities to better explain patient's presentation. On review of his documentation he was evaluated on 01/17 for similar concerns of lightheaded/dizzy and was admitted overnight at that time for observation of near syncopal episode. There is no noted truncal ataxia or tremor, however will contact Neurology and discuss the case for possible observation admission. I discussed this case with Neurology who recommends observation admission with MRI and carotid Dopplers. I then discussed this case with the inpatient hospitalist team who will admit the patient. MDM - Neuro Symptoms/Deficit Lab Data Result diagrams: 02/04/21 00:44 02/04/21 00:44 Labs: Lab Results 02/04/21 02/04/21 02/04/21 Range/Units 00:09 00:44 00:44 WBC 7.8 (4.8-10.8) X10*3/uL RBC 4.42 L (4.60-5.80) X10*6/uL Hgb 14.0 (14.0-18.0) g/dl Hct 41.3 L (42-52) % MCV 93.4 (80-98) fL MCH 31.7 (27.0-33.0) pg MCHC 33.9 (31.0-36.0) g/dl RDW 12.1 (11.0-16.0) % Plt Count 311 (160-400) X10*3/uL MPV 10.0 (9.4-12.4) fL Immature Gran % (Auto) 0.3 (0.0-0.4) % Neut % (Auto) 55.4 (45-73) % Lymph % (Auto) 30.5 (20-40) % [place] % (Auto) 10.0 (2-11) % Eos % (Auto) 3.3 (0-4) % Baso % (Auto) 0.5 (0-2) % Lymph # (Auto) 2.4 (1.2-4.9) X10*3/uL [place] # (Auto) 0.8 (0.1-1.2) X10*3/uL Eos # (Auto) 0.3 (0.0-0.4) X10*3/uL Baso # (Auto) 0.0 (0.0-0.2) X10*3/uL Abs Immat Gran (auto) 0.02 (0.00-0.03) X10*3/uL Absolute Neuts (auto) 4.3 (2.0-8.3) X10*3/uL Absolute Nucleated RBC 0.000 (0.0-0.012) X10*3/uL Nucleated RBC % (auto) 0.0 (0.0-0.2) /100WBC PT (10.8-13.0) SEC INR (0.9-1.1) Sodium 139 (135-145) mmol/L Potassium 4.1 (3.3-5.1) mmol/L Chloride 105 (96-108) mmol/L Carbon Dioxide 24 (22-29) mmol/L Anion Gap 14 (12-20) BUN 19 H (9-16) mg/dL Creatinine 1.01 (0.5-1.4) mg/dL Estim Creat Clear Calc 98.1 Estimated GFR > 60 POC Glucose 116 H (60-115) mg/dL Random Glucose 110 (60-115) mg/dL Calcium 9.3 (8.4-10.2) mg/dL Magnesium (1.6-2.6) mg/dL Total Bilirubin 0.2 (0.0-1.0) mg/dL AST 15 (5-37) U/L ALT 15 (0-40) U/L Alkaline Phosphatase 83 (39-117) U/L Troponin I High Sens (<3.5-35.0) ng/L Total Protein 7.0 (6.5-8.0) g/dL Albumin 4.1 (3.5-5.0) g/dL Urine Color Urine Appearance Urine pH (5.0-8.0) Ur Specific [place] (1.005-1.025) Urine Protein (NEG-TRACE) MG/DL Urine Glucose (UA) (NEG) MG/DL Urine Ketones (NEG) MG/DL Urine Blood (NEG) Urine Nitrite (NEG) Ur Leukocyte Esterase (NEG) COVID-19 (RYAN) (Negative) COVID-19 Clin Com 02/04/21 02/04/21 02/04/21 Range/Units 00:44 00:44 00:44 WBC (4.8-10.8) X10*3/uL RBC (4.60-5.80) X10*6/uL Hgb (14.0-18.0) g/dl Hct (42-52) % MCV (80-98) fL MCH (27.0-33.0) pg MCHC (31.0-36.0) g/dl RDW (11.0-16.0) % Plt Count (160-400) X10*3/uL MPV (9.4-12.4) fL Immature Gran % (Auto) (0.0-0.4) % Neut % (Auto) (45-73) % Lymph % (Auto) (20-40) % [place] % (Auto) (2-11) % Eos % (Auto) (0-4) % Baso % (Auto) (0-2) % Lymph # (Auto) (1.2-4.9) X10*3/uL [place] # (Auto) (0.1-1.2) X10*3/uL Eos # (Auto) (0.0-0.4) X10*3/uL Baso # (Auto) (0.0-0.2) X10*3/uL Abs Immat Gran (auto) (0.00-0.03) X10*3/uL Absolute Neuts (auto) (2.0-8.3) X10*3/uL Absolute Nucleated RBC (0.0-0.012) X10*3/uL Nucleated RBC % (auto) (0.0-0.2) /100WBC PT 11.5 (10.8-13.0) SEC INR 1.0 (0.9-1.1) Sodium (135-145) mmol/L Potassium (3.3-5.1) mmol/L Chloride (96-108) mmol/L Carbon Dioxide (22-29) mmol/L Anion Gap (12-20) BUN (9-16) mg/dL Creatinine (0.5-1.4) mg/dL Estim Creat Clear Calc Estimated GFR POC Glucose (60-115) mg/dL Random Glucose (60-115) mg/dL Calcium (8.4-10.2) mg/dL Magnesium 2.2 (1.6-2.6) mg/dL Total Bilirubin (0.0-1.0) mg/dL AST (5-37) U/L ALT (0-40) U/L Alkaline Phosphatase (39-117) U/L Troponin I High Sens < 3.5 (<3.5-35.0) ng/L Total Protein (6.5-8.0) g/dL Albumin (3.5-5.0) g/dL Urine Color Urine Appearance Urine pH (5.0-8.0) Ur Specific [place] (1.005-1.025) Urine Protein (NEG-TRACE) MG/DL Urine Glucose (UA) (NEG) MG/DL Urine Ketones (NEG) MG/DL Urine Blood (NEG) Urine Nitrite (NEG) Ur Leukocyte Esterase (NEG) COVID-19 (RYAN) (Negative) COVID-19 Clin Com 02/04/21 02/04/21 Range/Units 00:44 02:24 WBC (4.8-10.8) X10*3/uL RBC (4.60-5.80) X10*6/uL Hgb (14.0-18.0) g/dl Hct (42-52) % MCV (80-98) fL MCH (27.0-33.0) pg MCHC (31.0-36.0) g/dl RDW (11.0-16.0) % Plt Count (160-400) X10*3/uL MPV (9.4-12.4) fL Immature Gran % (Auto) (0.0-0.4) % Neut % (Auto) (45-73) % Lymph % (Auto) (20-40) % [place] % (Auto) (2-11) % Eos % (Auto) (0-4) % Baso % (Auto) (0-2) % Lymph # (Auto) (1.2-4.9) X10*3/uL [place] # (Auto) (0.1-1.2) X10*3/uL Eos # (Auto) (0.0-0.4) X10*3/uL Baso # (Auto) (0.0-0.2) X10*3/uL Abs Immat Gran (auto) (0.00-0.03) X10*3/uL Absolute Neuts (auto) (2.0-8.3) X10*3/uL Absolute Nucleated RBC (0.0-0.012) X10*3/uL Nucleated RBC % (auto) (0.0-0.2) /100WBC PT (10.8-13.0) SEC INR (0.9-1.1) Sodium (135-145) mmol/L Potassium (3.3-5.1) mmol/L Chloride (96-108) mmol/L Carbon Dioxide (22-29) mmol/L Anion Gap (12-20) BUN (9-16) mg/dL Creatinine (0.5-1.4) mg/dL Estim Creat Clear Calc Estimated GFR POC Glucose (60-115) mg/dL Random Glucose (60-115) mg/dL Calcium (8.4-10.2) mg/dL Magnesium (1.6-2.6) mg/dL Total Bilirubin (0.0-1.0) mg/dL AST (5-37) U/L ALT (0-40) U/L Alkaline Phosphatase (39-117) U/L Troponin I High Sens (<3.5-35.0) ng/L Total Protein (6.5-8.0) g/dL Albumin (3.5-5.0) g/dL Urine Color STRAW Urine Appearance CLEAR Urine pH 7.5 (5.0-8.0) Ur Specific [place] 1.015 (1.005-1.025) Urine Protein NEG (NEG-TRACE) MG/DL Urine Glucose (UA) NEG (NEG) MG/DL Urine Ketones NEG (NEG) MG/DL Urine Blood NEG (NEG) Urine Nitrite NEG (NEG) Ur Leukocyte Esterase NEG (NEG) COVID-19 (RYAN) Negative (Negative) COVID-19 Clin Com See Note ECG Data Attestation: I personally reviewed and interpreted this ECG as follows: Prior ECG tracings: available for review (01/08/2021 no acute changes on comparison) Interpretation: Normal sinus rhythm, HR-77, no evidence of acute ischemia, NV/QRS/QTC are within normal limits. NIH Stroke Scale Internal: Initial- Upon Arrival Level of Consciousness: Alert Level of Consciousness Questions: Answers both questions correctly Level of Consciousness Commands: Performs both tasks correctly Best Gaze: Normal Visual: No visual loss Facial Palsy: Normal Motor Arm (Right): Drift Motor Arm (Left): No drift Motor Leg (Right): No drift Motor Leg (Left): No drift Limb Ataxia: Present in one limb Sensory: Normal Best Language: No aphasia Dysarthia: Normal Extinction and Inattention: No abnormality Score: 2 Discharge Plan Discharge Clinical Impression: Light-headedness, Dizziness, Neurological deficit, transient Patient Disposition: Admitted As Inpatient
[2021-02-04 00:14] LABS: Glucose, Whole Blood 116 mg/dL (60-115)
[2021-02-04 00:15] VITALS: BP 154/81; PULSE 80; RESP 24; TEMP 36.7; O2SAT 98
[2021-02-04 00:53] LABS: Basophils Percent Auto 0.5 % (0-2); Eosinophils Absolute Auto 0.3 X10*3/uL (0.0-0.4); Eosinophils Percent Auto 3.3 % (0-4); Hematocrit 41.3 % (42-52); Imm Gran Abs Auto 0.02 X10*3/uL (0.00-0.03); Imm Gran Pct Auto 0.3 % (0.0-0.4); Lymphocytes Absolute Auto 2.4 X10*3/uL (1.2-4.9); Lymphocytes Percent Auto 30.5 % (20-40); MANUAL DIFF FLAG NO; Mean Corpuscular HGB Conc 33.9 g/dl (31.0-36.0); Mean Corpuscular Hemoglobin 31.7 pg (27.0-33.0); Mean Corpuscular Volume 93.4 fL (80-98); Monocytes Absolute Auto 0.8 X10*3/uL (0.1-1.2); Neutrophils Absolute Auto 4.3 X10*3/uL (2.0-8.3); Neutrophils Percent Auto 55.4 % (45-73); Platelet Count 311 X10*3/uL (160-400); Red Blood Count 4.42 X10*6/uL (4.60-5.80); Red Cell Distribution Width 12.1 % (11.0-16.0); White Blood Count 7.8 X10*3/uL (4.8-10.8)
[2021-02-04 01:00] LABS: Glucose Urine UA NEG (NEG); Leukocyte Esterase Urine NEG (NEG); Nitrite Urine NEG (NEG); PH 7.5 (5.0-8.0); Prothrombin Time 11.5 SEC (10.8-13.0); Specific Gravity - Urine 1.015 (1.005-1.025); Urine Blood NEG (NEG); Urine Ketones NEG (NEG); Urine Protein NEG (NEG-TRACE)
--- NOTE | 2021-02-04 01:00 | PC.NURSE ---
Pt aaox4, speech clear, no facial droop appreciated by this RN. Dr Medeiros at bedside, assessed neuros and informed pt she will contact neurology for input. pt c/o dizziness. Pt with some R sided weakness noted, pt reports this is normal for him. Pt with mild decrease in sensation in R arm compared to L arm, states this sensation is normal for pt. Stretcher in lowest locked position, rails raised, call fabian within reach.
[2021-02-04 01:01] LABS: Appearance Urine CLEAR; Color Urine STRAW; UACC Culture Trigger NO
[2021-02-04 01:22] LABS: Magnesium 2.2 mg/dL (1.6-2.6)
[2021-02-04 01:24] LABS: Alanine Aminotransferase 15 U/L (0-40); Albumin Level 4.1 g/dL (3.5-5.0); Alkaline Phosphatase 83 U/L (39-117); Anion Gap 14 (12-20); Aspartate Amino Transferase 15 U/L (5-37); Bilirubin Total 0.2 mg/dL (0.0-1.0); Blood Urea Nitrogen 19 mg/dL (9-16); Calcium 9.3 mg/dL (8.4-10.2); Carbon Dioxide 24 mmol/L (22-29); Chloride 105 mmol/L (96-108); Creatinine Clr Calc Pharmacy 98.1; Estimated Glomerular Filt Rate > 60; Glucose Random 110 mg/dL (60-115); Potassium 4.1 mmol/L (3.3-5.1); Sodium 139 mmol/L (135-145)
[2021-02-04 01:28] LABS: Troponin-I High Sensitivity < 3.5 ng/L (<3.5-35.0)
[2021-02-04 02:21] VITALS: BP 144/89; PULSE 92; RESP 18; O2SAT 97
--- NOTE | 2021-02-04 02:29 | PC.NURSE ---
Pt requested to use urinal while standing at bedside. This RN assisted with standby however no assist was needed as pt was able to bend over, obtain urinal, and use urinal without incidence. Pt's VSS. Stretcher remains in lowest locked position, rails raised, call fabian within reach. Heath covid swab obtained and sent to lab for processing.
[2021-02-04 02:46] LABS: COVID-19 Test Negative (Negative); IDNOW Serial# 9DD0AD1C
--- NOTE | 2021-02-04 04:17 | P.HPHOSP_ITS ---
History of Present Illness Date of Service: 02/04/21 Chief Complaint: Dizziness 50-year-old male with a past medical history of hypertension presented to the hospital with a chief complaint of dizziness. Patient reported today he had an episode of dizziness and lightheadedness, denied any fall, denied any loss of consciousness. As symptoms were not improving decided to come to the ER for further evaluation. Denies any vertigo-like symptoms. Also in the morning he noted to have right thigh numbness which improved at the time of my interview. Denies any focal weakness. Denies any headaches. Denies any fever chills cough. Denies any chest pain or palpitations. Review of all other systems is negative except mentioned above ER course: Per ER team patient exam was nonfocal, CT scan showed no acute findings intracranially. Spoke to Neurology who recommended admission to the hospital for carotid duplex and MRI. [facility] Medical History CVA (cerebral vascular accident) Social History Alcohol intake: never Smoking Status: Never smoker Advance Directives: No service: No Current occupational status: unemployed Meds Allergies Allergy/AdvReac Type Severity Reaction Status Date / Time gluten Allergy Rash Verified 02/04/21 00:41 Penicillins Allergy Rash Verified 02/04/21 00:40 Active Medications: Current Medications Generic Name Dose Route Start Last Admin Trade Name Freq PRN Reason Stop Dose Admin Acetaminophen 650 mg 02/04/21 04:13 Acetaminophen 325 Mg Tablet PO Q6H PRN Pain, Mild (Pain Scale 1-3) Aspirin 81 mg 02/04/21 09:00 Aspirin Enteric Coated 81 Mg Tablet.Dr PO DAILY [facility] Heparin Sodium (Porcine) 5,000 unit 02/04/21 04:15 Heparin Sodium,Porcine 5,000 Unit/Ml Vial SUBCUT Q8H [facility] Hydrochlorothiazide 12.5 mg 02/04/21 09:00 Hydrochlorothiazide 12.5 Mg Tablet PO DAILY [facility] Protocol Senna 17.2 mg 02/04/21 04:13 Sennosides 8.6 Mg Tablet PO BEDTIME PRN Constipation Sodium Chloride 3 ml 02/04/21 08:00 0.9 % Sodium Chloride Flush 3 Ml Syringe IVFLU QSHIFT [facility] Home Medications Medication Instructions Recorded Confirmed Last Taken Type aspirin 81 mg PO DAILY 04/01/21 04/27/21 04/26/21 History hydrochlorothiazide 12.5 mg PO BID 02/04/21 02/04/21 02/03/21 History Physical Exam Vital Signs and Narrative: Vital Signs: Last Vital Signs Temp 98.1 F 02/04/21 00:15 Pulse 92 02/04/21 02:21 Resp 18 02/04/21 02:21 BP 144/89 H 02/04/21 02:21 Pulse Ox 97 02/04/21 02:21 Body Mass Index 24.8 Gen: Appears be in no acute distress HEENT: NCAT, Moist mucosa. Pulmonary: Vesicular breath sounds, fair air entry CVS: Normal S1-S2 Abdomen: BS+, Soft, Nontender Extremities: Warm well perfused Neuro: Alert and awake. Grossly nonfocal Results Labs CBC and Chem 7: 02/04/21 07:31 02/04/21 07:31 Labs: Laboratory Results - last 24 hr 02/04/21 02/04/21 02/04/21 00:09 00:44 00:44 MCV 93.4 MCH 31.7 MCHC 33.9 RDW 12.1 Plt Count 311 MPV 10.0 Immature Gran % (Auto) 0.3 Neut % (Auto) 55.4 Lymph % (Auto) 30.5 [place] % (Auto) 10.0 Eos % (Auto) 3.3 Baso % (Auto) 0.5 Lymph # (Auto) 2.4 [place] # (Auto) 0.8 Eos # (Auto) 0.3 Baso # (Auto) 0.0 Abs Immat Gran (auto) 0.02 Absolute Neuts (auto) 4.3 Absolute Nucleated RBC 0.000 Nucleated RBC % (auto) 0.0 PT INR Anion Gap 14 Estim Creat Clear Calc 98.1 Estimated GFR > 60 POC Glucose 116 H Random Glucose 110 Calcium 9.3 Magnesium Total Bilirubin 0.2 AST 15 ALT 15 Alkaline Phosphatase 83 Troponin I High Sens Total Protein 7.0 Albumin 4.1 Urine Color Urine Appearance Urine pH Ur Specific [place] Urine Protein Urine Glucose (UA) Urine Ketones Urine Blood Urine Nitrite Ur Leukocyte Esterase COVID-19 (RYAN) COVID-19 Clin Com 02/04/21 02/04/21 02/04/21 00:44 00:44 00:44 MCV MCH MCHC RDW Plt Count MPV Immature Gran % (Auto) Neut % (Auto) Lymph % (Auto) [place] % (Auto) Eos % (Auto) Baso % (Auto) Lymph # (Auto) [place] # (Auto) Eos # (Auto) Baso # (Auto) Abs Immat Gran (auto) Absolute Neuts (auto) Absolute Nucleated RBC Nucleated RBC % (auto) PT 11.5 INR 1.0 Anion Gap Estim Creat Clear Calc Estimated GFR POC Glucose Random Glucose Calcium Magnesium 2.2 Total Bilirubin AST ALT Alkaline Phosphatase Troponin I High Sens < 3.5 Total Protein Albumin Urine Color Urine Appearance Urine pH Ur Specific [place] Urine Protein Urine Glucose (UA) Urine Ketones Urine Blood Urine Nitrite Ur Leukocyte Esterase COVID-19 (RYAN) COVID-19 Clin Com 02/04/21 02/04/21 00:44 02:24 MCV MCH MCHC RDW Plt Count MPV Immature Gran % (Auto) Neut % (Auto) Lymph % (Auto) [place] % (Auto) Eos % (Auto) Baso % (Auto) Lymph # (Auto) [place] # (Auto) Eos # (Auto) Baso # (Auto) Abs Immat Gran (auto) Absolute Neuts (auto) Absolute Nucleated RBC Nucleated RBC % (auto) PT INR Anion Gap Estim Creat Clear Calc Estimated GFR POC Glucose Random Glucose Calcium Magnesium Total Bilirubin AST ALT Alkaline Phosphatase Troponin I High Sens Total Protein Albumin Urine Color STRAW Urine Appearance CLEAR Urine pH 7.5 Ur Specific [place] 1.015 Urine Protein NEG Urine Glucose (UA) NEG Urine Ketones NEG Urine Blood NEG Urine Nitrite NEG Ur Leukocyte Esterase NEG COVID-19 (RYAN) Negative COVID-19 Clin Com See Note Imaging Radiologist's Impressions: Impressions Head CT 02/04/21 00:11 IMPRESSION: No acute intracranial pathology. Assessment and Plan (1) Light-headedness: Status: Acute 50-year-old male with a past medical history of hypertension, remote history of TIA/CVA presented to the hospital with a chief complaint of dizziness. Dizziness/lightheadedness: Patient denies any loss of consciousness. Patient denies any taking extra medications. Repeat reported right pain numbness which improved the time of my interview/examination. CT head showed no acute findings. EKG and troponins negative. Echocardiogram Carotid duplex Will defer MRI to the Neurology in the morning. Orthostatic vitals Hypertension: Continue home medications DVT prophylaxis: Subcu heparin Code status: Full code (2) Dizziness: Problem details: Nonspecific dizziness. No evidence of cerebrovascular disease or acute stroke. Status: Acute (3) Neurological deficit, transient: Status: Acute
[2021-02-04 05:29] LABS: Troponin-I High Sensitivity < 3.5 ng/L (<3.5-35.0)
[2021-02-04 06:33] VITALS: BP 148/76; PULSE 70; RESP 19; O2SAT 97
[2021-02-04] MEDS: Heparin Sodium,Porcine 5,000 UNIT/ML VIAL 5000 UNIT SUBCUT ×2 (06:35→15:30)
--- NOTE | 2021-02-04 07:30 | CA_ITS ---
Transthoracic Echocardiogram Patient (Last, First, Middle): AR CHAPIN, Gender: Male Date of : 1970 Age: 50 Procedure Date: 02/04/2021 Procedure Type: Transthoracic Echocardiogram Location: ER Height: 182.88 cm Weight: 83.01 kg BSA: 2.05 m2 Heart Rate: bpm BP: 151 / 82 mmHg Design Assembler: Referring MD: Tomas Price MD [employer] Crewman: Bryce Mckee MD Symptoms: Dizziness Study Quality: Good ECG Rhythm: Sinus Conclusions: - Essentially normal study with grade 1 diastolic dysfunction Findings Left Ventricle Normal left ventricular size, thickness, and systolic function. The visually estimated ejection fraction is between 60-65%. Spectral Doppler is indicative of an impaired relaxation filling pattern. E/E prime ratio is <8, consistent with normal filling pressures. Evidence suggests grade I (mild) diastolic dysfunction. Right Ventricle Normal right ventricular cavity size and systolic function. Atria Both atria are normal in size. There is no evidence of interatrial shunt. Aortic Valve Normal aortic valve structure and function. There is no aortic valve stenosis. There is no aortic valve regurgitation. Mitral Valve Normal mitral valve structure and function. There is trace mitral valve regurgitation. There is no mitral valve stenosis. Pulmonic Valve The pulmonic valve is likely normal. There is trace pulmonic valve regurgitation. Tricuspid Valve Normal tricuspid valve structure. There is trace tricuspid valve regurgitation. The right ventricular systolic pressure is normal. The right ventricular systolic pressure is 20 mmHg. Normal right atrial pressure. There is no evidence of pulmonary hypertension. Great Vessels All visible segments of the aorta are normal in size. The pulmonary artery was not well visualized. Venous The inferior vena cava is normal in size and collapses greater than 50% with inspiration. Pericardium/Pleural There is no evidence of pericardial effusion. Prior Study Comparison No prior study available for comparison. Measurements 2D Linear Measurements IVSd: 0.98 0.6-0.9/0.6-1.0 cm LVIDd: 4.33 3.9-5.3/4.2-5.9 cm LVIDd Index: 2.11 2.4-3.2/2.2-3.1 cm/m2 LVIDs: 3.00 2.0-3.6 cm LVPWd: 1.03 0.7-1.1 cm Ao Root: 3.50 2.1-3.5 cm LA Diam: 3.40 2.7-3.8/3.0-4.0 cm LAIDs Index: 1.66 1.5-2.3 cm/m2 LV Mass: 180.48 67-162/88-224 g LV Mass Index: 88.04 43-95/49-115 g/m2 LVOT Diam: 2.30 3.0+(-)1.3 cm 2D Systolic Function EF 4C: 66.00 >55% EF 2C: 51.60 >55% EF BiP: 59.80 >55% Mitral Valve MV Pk E: 0.63 MV PK A: 0.68 MV Decel Time: 197.00 E/A: 0.90 E'Lateral: 11.90 E'Medial: 6.48 E/E' Med: 9.70 E/E' Lat: 5.30 Aortic Valve AoV Pk Josias: 0.99 AoV Mn Josisa: 0.64 AoV VTI: 0.24 AoV Pk Grad: 4.00 Aov Mn Grad: 2.00 KRISSY Cont.VTI: 2.77 LVOT LVOT Pk Josias: 0.81 LVOT Mn Josias: 0.47 LVOT VTI: 0.16 LVOT Pk Grad: 3.00 LVOT Mn Grad: 1.00 LVOT Diam: 2.30 LVOT Area: 4.15 Diastolic Function MV Pk E: 0.63 MV Pk A: 0.68 E/A: 0.90 E'Medial: 6.48 E/E' Med: 9.70 E' Laterial: 11.90 E/E' Lat: 5.30 Tricuspid Valve TR Pk Josias: 2.04 TR Pk Grad: 17.00 RA Press: 3.00 RVSP: 20.00 Great Vessels Aorta Ao Root-2D: 3.50 2.0-3.7 cm Ao Asc: 3.30 2.1-3.4 cm Pulmonary Valve PV Pk Josias: 1.09 Peak PV Grad: 5.00 Updated in Other Vendor System with Status of Final Bryce Mckee MD electronically signed on 02/04/2021 2:07:57 PM with status of Final
--- NOTE | 2021-02-04 07:34 | PC.NURSE ---
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 plan for mri and carotid dopplar during admission. pt appears to be resting at this time, denies any pain. urinal at bedside. call fabian within reach. wctm.
[2021-02-04 07:48] LABS: MANUAL DIFF FLAG NO
[2021-02-04 07:53] LABS: Basophils Percent Auto 0.4 % (0-2); Eosinophils Absolute Auto 0.3 X10*3/uL (0.0-0.4); Hematocrit 42.9 % (42-52); Hemoglobin 14.2 g/dl (14.0-18.0); Imm Gran Abs Auto 0.03 X10*3/uL (0.00-0.03); Imm Gran Pct Auto 0.4 % (0.0-0.4); Lymphocytes Absolute Auto 2.4 X10*3/uL (1.2-4.9); Lymphocytes Percent Auto 33.2 % (20-40); Mean Corpuscular HGB Conc 33.1 g/dl (31.0-36.0); Mean Corpuscular Hemoglobin 30.8 pg (27.0-33.0); Mean Corpuscular Volume 93.1 fL (80-98); Mean Platelet Volume 10.1 fL (9.4-12.4); Monocytes Absolute Auto 0.7 X10*3/uL (0.1-1.2); Monocytes Percent Auto 9.3 % (2-11); Neutrophils Absolute Auto 3.7 X10*3/uL (2.0-8.3); Neutrophils Percent Auto 52.7 % (45-73); Platelet Count 295 X10*3/uL (160-400); Red Blood Count 4.61 X10*6/uL (4.60-5.80); Red Cell Distribution Width 12.1 % (11.0-16.0); White Blood Count 7.1 X10*3/uL (4.8-10.8)
[2021-02-04 08:24] LABS: Anion Gap 14 (12-20); Blood Urea Nitrogen 15 mg/dL (9-16); Calcium 8.8 mg/dL (8.4-10.2); Carbon Dioxide 25 mmol/L (22-29); Chloride 105 mmol/L (96-108); Creatinine Clr Calc Pharmacy 110.1; Estimated Glomerular Filt Rate > 60; Glucose Random 105 mg/dL (60-115); Sodium 140 mmol/L (135-145)
--- NOTE | 2021-02-04 09:08 | PC.NURSE ---
echo being completed at bedside, mri screening form completed w pt and faxed to mri.
[2021-02-04] MEDS: Aspirin Enteric Coated 81 MG TABLET.DR PO (09:16)
[2021-02-04] MEDS: hydroCHLOROthiazide 12.5 MG TABLET PO (09:16)
--- NOTE | 2021-02-04 11:30 | PC.NURSE ---
pt ambulating w steady gait around er w physical tx.
[2021-02-04 11:32] VITALS: BP 148/76; PULSE 70; O2SAT 97
[2021-02-04 12:23] LABS: Estimated Average Glucose 103 mg/dL; Hemoglobin A1c % 5.2 %
--- NOTE | 2021-02-04 15:47 | MHC.STROKE ---
02/03/21 2354 EMS PRE-NOTIFICATION DIZZINESS AND HIGH BP. ARRIVED 02/04/21 AT 0001. SEEN BY PROVIDER, CT HEAD DONE AT 0021, NO BLEED. NIHSS = 2 ATAXIA. ONSET OF SYMPTOMS CLARIFIED WITH PATIENT TO BE EARLY IN THE DAY ON 02/03/21 AROUND 1200. HE DECIDED HIS SYMPTOMS BECAME WORSE IN THE EVENING AND CALLED EMS. HE WAS NOT A TPA CANDIDATE DUE TO LOW NIHSS OF 2 AND STROKE SEVERITY TOO MILD, NON-DISABLING, PLUS HE IS OUT OF THE 3-4.5HR WINDOW. HE MENTIONED HE HAD A STROKE 8 YEARS AGO BUT HE WAS NOT LIVING AROUND HERE. HE RECENTLY MOVED HERE AND HE DOES NOT HAVE A PCP, HE TOLD ME HE WAS INSTRUCTED TO GO TO [facility] IN [place] FOR FOLLOW UP CARE. HE WAS SEEN BY DR HORN. THE MRI WAS REVIEWED. THE PATIENT PASSED HIS SWALLOW SCREEN, HE WAS PROVIDED STROKE EDUCATION. SEE DR HORN'S NOTE.
--- NOTE | 2021-02-04 16:19 | P.PNIM_ITS ---
Subjective Subjective Date of Service: 02/04/21 Interval History: no further RLE numbness and no dizziness MRI reveals punctate foci of elevated diffusion signal in the right precentral gyrus but this does not correspond to the area of his reported symptoms and may be artifactual remote hx TIA 8 yr ago with RLE numbness/weakness, resolved just moved to the area and does not have a PCP Physical Exam Vital Signs: Vital Signs: Last Vital Signs Temp 98.1 F 02/04/21 00:15 Pulse 70 02/04/21 11:32 Resp 19 02/04/21 06:33 BP 148/76 H 02/04/21 11:32 Pulse Ox 97 02/04/21 11:32 Body Mass Index 24.8 Gen: in no acute distress HEENT: sclera anicteric, moist mucus membranes Neck: supple Lungs: clear to auscultation bilaterally Heart: regular rate and rhythm, no murmurs Abd: soft, non-tender, non-distended Ext: no edema Skin: warm/well-perfused Neuro: alert and oriented x3, no focal findings Psych: appropriate affect Objective Data Current Medications Generic Name Dose Route Start Last Admin Trade Name Freq PRN Reason Stop Dose Admin Acetaminophen 650 mg 02/04/21 04:13 Acetaminophen 325 Mg Tablet PO Q6H PRN Pain, Mild (Pain Scale 1-3) Aspirin 81 mg 02/04/21 09:00 02/04/21 09:16 Aspirin Enteric Coated 81 Mg Tablet.Dr PO 81 mg DAILY ANN Administration Atorvastatin Calcium 40 mg 02/04/21 21:00 Atorvastatin Calcium 40 Mg Tablet PO BEDTIME [facility] Heparin Sodium (Porcine) 5,000 unit 02/04/21 06:00 02/04/21 15:30 Heparin Sodium,Porcine 5,000 Unit/Ml Vial SUBCUT 5,000 unit Q8H ANN Administration Hydrochlorothiazide 12.5 mg 02/04/21 09:00 02/04/21 09:16 Hydrochlorothiazide 12.5 Mg Tablet PO 12.5 mg DAILY [facility] Administration Protocol Senna 17.2 mg 02/04/21 04:13 Sennosides 8.6 Mg Tablet PO BEDTIME PRN Constipation Sodium Chloride 3 ml 02/04/21 08:00 02/04/21 15:30 0.9 % Sodium Chloride Flush 3 Ml Syringe IVFLUSH Not Given QSHIFT [facility] Labs CBC & Chem 7: 02/04/21 07:31 02/04/21 07:31 Labs: Laboratory Results - last 24 hr 02/04/21 02/04/21 02/04/21 00:09 00:44 00:44 WBC 7.8 RBC 4.42 L Hgb 14.0 Hct 41.3 L MCV 93.4 MCH 31.7 MCHC 33.9 RDW 12.1 Plt Count 311 MPV 10.0 Immature Gran % (Auto) 0.3 Neut % (Auto) 55.4 Lymph % (Auto) 30.5 [place] % (Auto) 10.0 Eos % (Auto) 3.3 Baso % (Auto) 0.5 Lymph # (Auto) 2.4 [place] # (Auto) 0.8 Eos # (Auto) 0.3 Baso # (Auto) 0.0 Abs Immat Gran (auto) 0.02 Absolute Neuts (auto) 4.3 Absolute Nucleated RBC 0.000 Nucleated RBC % (auto) 0.0 PT INR Sodium 139 Potassium 4.1 Chloride 105 Carbon Dioxide 24 Anion Gap 14 BUN 19 H Creatinine 1.01 Estim Creat Clear Calc 98.1 Estimated GFR > 60 POC Glucose 116 H Random Glucose 110 Estimat Average Glucose Hemoglobin A1c % Calcium 9.3 Magnesium Total Bilirubin 0.2 AST 15 ALT 15 Alkaline Phosphatase 83 Troponin I High Sens Total Protein 7.0 Albumin 4.1 Urine Color Urine Appearance Urine pH Ur Specific [place] Urine Protein Urine Glucose (UA) Urine Ketones Urine Blood Urine Nitrite Ur Leukocyte Esterase COVID-19 (RYAN) COVID-19 Clin Com 02/04/21 02/04/21 02/04/21 00:44 00:44 00:44 WBC RBC Hgb Hct MCV MCH MCHC RDW Plt Count MPV Immature Gran % (Auto) Neut % (Auto) Lymph % (Auto) [place] % (Auto) Eos % (Auto) Baso % (Auto) Lymph # (Auto) [place] # (Auto) Eos # (Auto) Baso # (Auto) Abs Immat Gran (auto) Absolute Neuts (auto) Absolute Nucleated RBC Nucleated RBC % (auto) PT 11.5 INR 1.0 Sodium Potassium Chloride Carbon Dioxide Anion Gap BUN Creatinine Estim Creat Clear Calc Estimated GFR POC Glucose Random Glucose Estimat Average Glucose Hemoglobin A1c % Calcium Magnesium 2.2 Total Bilirubin AST ALT Alkaline Phosphatase Troponin I High Sens < 3.5 Total Protein Albumin Urine Color Urine Appearance Urine pH Ur Specific [place] Urine Protein Urine Glucose (UA) Urine Ketones Urine Blood Urine Nitrite Ur Leukocyte Esterase COVID-19 (RYAN) COVID-19 Clin Com 02/04/21 02/04/21 02/04/21 00:44 02:24 04:55 WBC RBC Hgb Hct MCV MCH MCHC RDW Plt Count MPV Immature Gran % (Auto) Neut % (Auto) Lymph % (Auto) [place] % (Auto) Eos % (Auto) Baso % (Auto) Lymph # (Auto) [place] # (Auto) Eos # (Auto) Baso # (Auto) Abs Immat Gran (auto) Absolute Neuts (auto) Absolute Nucleated RBC Nucleated RBC % (auto) PT INR Sodium Potassium Chloride Carbon Dioxide Anion Gap BUN Creatinine Estim Creat Clear Calc Estimated GFR POC Glucose Random Glucose Estimat Average Glucose Hemoglobin A1c % Calcium Magnesium Total Bilirubin AST ALT Alkaline Phosphatase Troponin I High Sens < 3.5 Total Protein Albumin Urine Color STRAW Urine Appearance CLEAR Urine pH 7.5 Ur Specific [place] 1.015 Urine Protein NEG Urine Glucose (UA) NEG Urine Ketones NEG Urine Blood NEG Urine Nitrite NEG Ur Leukocyte Esterase NEG COVID-19 (RYAN) Negative COVID-19 Clin Com See Note 02/04/21 02/04/21 02/04/21 07:31 07:31 07:31 WBC 7.1 RBC 4.61 Hgb 14.2 Hct 42.9 MCV 93.1 MCH 30.8 MCHC 33.1 RDW 12.1 Plt Count 295 MPV 10.1 Immature Gran % (Auto) 0.4 Neut % (Auto) 52.7 Lymph % (Auto) 33.2 [place] % (Auto) 9.3 Eos % (Auto) 4.0 Baso % (Auto) 0.4 Lymph # (Auto) 2.4 [place] # (Auto) 0.7 Eos # (Auto) 0.3 Baso # (Auto) 0.0 Abs Immat Gran (auto) 0.03 Absolute Neuts (auto) 3.7 Absolute Nucleated RBC 0.000 Nucleated RBC % (auto) 0.0 PT INR Sodium 140 Potassium 4.0 Chloride 105 Carbon Dioxide 25 Anion Gap 14 BUN 15 Creatinine 0.90 Estim Creat Clear Calc 110.1 Estimated GFR > 60 POC Glucose Random Glucose 105 Estimat Average Glucose 103 Hemoglobin A1c % 5.2 Calcium 8.8 Magnesium Total Bilirubin AST ALT Alkaline Phosphatase Troponin I High Sens Total Protein Albumin Urine Color Urine Appearance Urine pH Ur Specific [place] Urine Protein Urine Glucose (UA) Urine Ketones Urine Blood Urine Nitrite Ur Leukocyte Esterase COVID-19 (RYAN) COVID-19 Clin Com ITS Impressions Head CT 02/04/21 00:11 IMPRESSION: No acute intracranial pathology. Brain MRI 02/04/21 10:34 IMPRESSION: Punctate foci of elevated diffusion signal in the right precentral gyrus suspected to represent small foci of acute ischemia. No other intracranial abnormality is seen. Carotid Doppler Study 02/04/21 10:53 IMPRESSION: 1. RIGHT: Normal right internal carotid artery without atherosclerotic plaque or hemodynamically significant stenosis. 2. LEFT: Normal left internal carotid artery without atherosclerotic plaque or hemodynamically significant stenosis. TTE 02/04/21 - Essentially normal study with grade 1 diastolic dysfunction Assessment and Plan (1) Neurological deficit, transient: Status: Acute Assessment and Plan: hospital d#1 51yo M with hx HTN, remote TIA presented with acute dizziness + RLE numbness, resolved admitted with concern of TIA # transient neurologic deficit - discuss MRI findings with Neurology, ASA/statin, complete workup with cardiac monitoring # HTN - continue HCTZ # VTE ppx - UFH # dispo - needs PCP
--- NOTE | 2021-02-04 17:05 | PM.NEUROCN ---
History of Present Illness Data of Consult Service Date: 02/04/21 Primary Care Provider: Unknown Physician HPI Reason for consult: Lightheaded dizziness and a funny feeling in the head with elevated blood p This is a 50-year-old man with a history of hypertension who was fasting and at the end of the day when he broke his fast he felt lightheaded and his blood pressure was checked by his and found to be elevated. He continued to feel dizzy so he decided to come to the ER. He had an earlier visit to the [facility] emergency room about 3 weeks ago for another bout of dizziness. While he was being transported here he had transient numbness in the right lateral thigh which resolved. His dizziness is also subsided. He had a CT scan and a carotid Doppler and an MRI of the brain which were reviewed and found to be normal. He has had no arrhythmias. Review of Systems Eyes: Eyes: Reports no additional eye complaints ENT: Reports system reviewed and no additional complaints, except as documented and Reports Normal hearing present Cardiovascular: Cardiovascular: Reports no additional cardiovascular complaints Respiratory: Respiratory: Reports no additional respiratory complaints Gastrointestinal: Gastrointestinal: Reports no additional gastrointestinal complaints Genitourinary: Genitourinary: Reports no additional male genitourinary complaints Musculoskeletal: Musculoskeletal: Reports no additional musculoskeletal complaints Integumentary/Breasts: Skin/Breast: Reports system reviewed and no additional complaints, except as docu Neurologic: Reports as per HPI and Reports Normal hearing present Psychiatric: Psychiatric: Reports as per HPI Endocrine: Endocrine: Reports no additional endocrine complaints Hematologic/Lymphatic: Hematologic/Lymphatic: Reports no additional hematologic/lymphatic complaints Allergic/Immunologic: Allergic/Immunologic: Reports no additional allergic/immunologic complaints [facility] Past Medical History Medical History CVA (cerebral vascular accident) Social History Social History Alcohol intake: never Smoking Status: Never smoker Advance Directives: No service: No Current occupational status: unemployed Meds Allergies Allergy/AdvReac Type Severity Reaction Status Date / Time gluten Allergy Rash Verified 02/04/21 00:41 Penicillins Allergy Rash Verified 02/04/21 00:40 Active Medications: Current Medications Generic Name Dose Route Start Last Admin Trade Name Freq PRN Reason Stop Dose Admin Acetaminophen 650 mg 02/04/21 04:13 Acetaminophen 325 Mg Tablet PO Q6H PRN Pain, Mild (Pain Scale 1-3) Aspirin 81 mg 02/04/21 09:00 02/04/21 09:16 Aspirin Enteric Coated 81 Mg Tablet. PO 81 mg DAILY ANN Administration Atorvastatin Calcium 40 mg 02/04/21 21:00 Atorvastatin Calcium 40 Mg Tablet PO BEDTIME [facility]CLUDES [facility] Heparin Sodium (Porcine) 5,000 unit 02/04/21 06:00 02/04/21 15:30 Heparin Sodium,Porcine 5,000 Unit/Ml Vial SUBCUT 5,000 unit Q8H ANN Administration Hydrochlorothiazide 12.5 mg 02/04/21 09:00 02/04/21 09:16 Hydrochlorothiazide 12.5 Mg Tablet PO 12.5 mg DAILY [facility] Administration Protocol Senna 17.2 mg 02/04/21 04:13 Sennosides 8.6 Mg Tablet PO BEDTIME PRN Constipation Sodium Chloride 3 ml 02/04/21 08:00 02/04/21 15:30 0.9 % Sodium Chloride Flush 3 Ml Syringe IVFLUSH Not Given QSHIFT COUNT INCLUDES [facility] Home Medications Medication Instructions Recorded Confirmed Last Taken Type aspirin 81 mg PO DAILY 01/09/21 02/04/21 02/03/21 History hydrochlorothiazide 12.5 mg PO BID 02/04/21 02/04/21 02/03/21 History Physical Exam Vital Signs: Vital Signs: Last Vital Signs Temp 98.1 F 02/04/21 00:15 Pulse 70 02/04/21 11:32 Resp 19 02/04/21 06:33 BP 148/76 H 02/04/21 11:32 Pulse Ox 97 02/04/21 11:32 Body Mass Index 24.8 Const: General: cooperative, comfortable, no acute distress, well developed, alert and awake Nutritional Appearance: well nourished Orientation/consciousness: oriented to person, oriented to place and oriented to time Limitations: no limitations HENMT: Head: Yes normal to inspection, Yes normocephalic and Yes atraumatic Ears: hearing grossly normal bilaterally General nose exam: Normal external nose present Face and sinus: Yes normal facial exam Mouth: Normal oral and palatal mucosa present Eyes: General: appearance normal, both eyes and all related structures Visual Palafox: normal visual palafox by confrontation Alignment and Position: alignment normal Periorbital: periorbital findings normal Eyelids: Yes eyelids normal Conjunctivae: conjunctivae normal Sclerae: sclerae normal Corneas: corneas normal Pupils: Equal, round and reactive pupils present and Pupil accommodation reflex normal EOM: EOMs intact bilaterally Direct Ophthalmoscopy: normal light reflex Neck: Neck: Yes normal visual inspection, Yes full ROM and Yes no meningeal signs Thyroid: Thyroid normal Carotids: normal carotid upstroke and bounding pulses Chest: Chest palpation & inspection: normal inspection of the chest Resp: Effort & Inspection: normal respiratory effort Auscultation: clear to auscultation bilaterally Cardio: Rate: regular rate Rhythm: regular rhythm Heart sounds: S1 normal heart sound present and S2 normal heart sound present Peripheral pulses: Peripheral pulses 2+ throughout GI: Inspection: Yes normal to inspection Percussion: Yes normal to percussion Auscultation: normal bowel sounds Rectal Exam - Male: Yes deferred Back/Spine/Pelvis: Cervical Spine: normal cervical lordosis and cervical ROM normal Thoracic/Lumbar Spine: thoracic and lumbar spine normal to inspection Skin: General skin exam: no rashes or lesions noted Neuro: General: oriented to person, oriented to place, oriented to time, gait normal, tone normal, moves all extremities, Normal light touch and pain sensation, no meningeal signs, no focal motor deficits, CN's II-XI intact bilaterally, normal sensation to monofilament and deep tendon reflexes 2+ bilaterally Cranial nerves: Yes CN's II-XII intact bilaterally, Yes Equal, round and reactive pupils present, Yes Bilaterally intact EOM present, Yes Nystagmus not present, Yes Normal facial strength present, Yes Midline tongue present, Yes Normal gag reflex present, Yes Symmetric palate elevation present, Yes Normal hearing present and Yes Ability to bilaterally rotate head present Cognition (Neuro): normal cognition Speech: Other speech findings present (Neuro) Gait exam (Neuro): Normal gait present Motor exam (neuro): 5/5 motor strength present throughout, Pronator motor function not present, no tremor noted, no asterixis, Motor fasciculations not present, Normal motor muscle tone present throughout and Motor abnormalities not present Sensory Exam: Bilaterally intact graphesthesia Deep tendon reflexes (DTR's): Right triceps reflex intensity grade: 2+, Left triceps reflex intensity grade: 2+, Rt Biceps (C5, C6): 2+, Left biceps reflex intensity grade: 2+, Right brachioradialis reflex intensity grade: 2+, Left brachioradialis reflex intensity grade: 2+, Right patellar reflex intensity grade: 2+, Left patellar reflex intensity grade: 2+, Right ankle reflex intensity grade: 2+ and Left ankle reflex intensity grade: 2+ Plantar Reflex Responses: downgoing: right, left and bilateral Coordination: [id number] test normal, [id number] test normal, tandem gait normal and Romberg test negative Pupils: Normal pupillary reactivity/response: bilateral Extrem: General: Yes normal to inspection, Yes normal exam except as noted and Yes no pedal edema Psych: Appearance: grossly normal Mental Status: mental status grossly normal Speech and movement: Normal speech and movement present and Clear speech present Affect: normal affect Attitude: cooperative Thought process: Normal thought process present Results Labs CBC & Chem 7: 02/04/21 07:31 02/04/21 07:31 Labs: Short CBC 02/04/21 02/04/21 Range/Units 00:44 07:31 WBC 7.8 7.1 (4.8-10.8) X10*3/uL Hgb 14.0 14.2 (14.0-18.0) g/dl Hct 41.3 L 42.9 (42-52) % Plt Count 311 295 (160-400) X10*3/uL BMP 02/04/21 02/04/21 00:44 07:31 Sodium 139 140 Potassium 4.1 4.0 Chloride 105 105 Carbon Dioxide 24 25 BUN 19 H 15 Creatinine 1.01 0.90 Calcium 9.3 8.8 Liver Function 02/04/21 Range/Units 00:44 Total Bilirubin 0.2 (0.0-1.0) mg/dL AST 15 (5-37) U/L ALT 15 (0-40) U/L Alkaline Phosphatase 83 (39-117) U/L Albumin 4.1 (3.5-5.0) g/dL Urine 02/04/21 Range/Units 00:44 Urine Color STRAW Urine Appearance CLEAR Urine pH 7.5 (5.0-8.0) Ur Specific [place] 1.015 (1.005-1.025) Urine Protein NEG (NEG-TRACE) MG/DL Urine Glucose (UA) NEG (NEG) MG/DL Assessment and Plan (1) Dizziness: Problem details: Nonspecific dizziness. No evidence of cerebrovascular disease or acute stroke. Status: Acute Monitor blood pressure at home both sitting and standing for orthostatic changes. He can be discharged at this point since no further neurological workup is necessary.
--- NOTE | 2021-02-04 18:15 | PM.DS ---
DS: Providers Provider Date of Service: 02/04/21 Date of admission: 02/04/21 04:13 Primary care physician: No Physician Consults: 02/04/21 04:15 Consult to Neurology Routine Consulting Provider: [facility] Reason for consultation: right thigh numbness; Maurilio DS: Diagnosis Discharge Diagnosis (1) Dizziness: Status: Acute Problem details: Nonspecific dizziness. No evidence of cerebrovascular disease or acute stroke. DS: Medications Discharge Medications Home Medications: Home Medications Medication Instructions Recorded Confirmed aspirin 81 mg PO DAILY 01/09/21 02/04/21 hydrochlorothiazide 12.5 mg PO BID 02/04/21 02/04/21 DS: Summary Hospital Course Hospital Course: From admission history physical hospital Tomassarthak Price, 02/04/21: 50-year-old male with a past medical history of hypertension presented to the hospital with a chief complaint of dizziness. Patient reported today he had an episode of dizziness and lightheadedness, denied any fall, denied any loss of consciousness. As symptoms were not improving decided to come to the ER for further evaluation. Denies any vertigo-like symptoms. Also in the morning he noted to have right thigh numbness which improved at the time of my interview. Denies any focal weakness. Denies any headaches. Denies any fever chills cough. Denies any chest pain or palpitations. Review of all other systems is negative except mentioned above ER course: Per ER team patient exam was nonfocal, CT scan showed no acute findings intracranially. Spoke to Neurology who recommended admission to the hospital for carotid duplex and MRI. All symptoms had resolved by the time the patient was admitted. Symptoms did not recur. Carotid Doppler, echocardiogram, and cardiac monitoring were essentially normal. There was question on MRI of a possible area of acute ischemia in the right precentral gyrus. Neurology was consulted. The MRI findings did not correspond to the patient's symptoms and ultimately were thought to be artifactual. The patient was discharged with instructions to continue hydrochlorothiazide and aspirin, and to establish primary care soon as possible. Return precautions were counseled. Status at Discharge Overall status at discharge: patient is back to baseline Time Spent with Patient Time attestation: Total time spent providing and/or coordinating discharge services: 20 Discharge coordination time: Less than 30 minutes Quality: Stroke Pt Provided Written Stroke Discharge Instructions: Patient given written information Physical Exam Vital Signs: Vital Signs: Last Vital Signs Temp 98.1 F 02/04/21 00:15 Pulse 70 02/04/21 11:32 Resp 19 02/04/21 06:33 BP 148/76 H 02/04/21 11:32 Pulse Ox 97 02/04/21 11:32 Body Mass Index 24.8 Gen: in no acute distress HEENT: sclera anicteric, moist mucus membranes Neck: supple Lungs: clear to auscultation bilaterally Heart: regular rate and rhythm, no murmurs Abd: soft, non-tender, non-distended Ext: no edema Skin: warm/well-perfused Neuro: alert and oriented x3, no focal findings Psych: appropriate affect DS: Data Data Completed and Pending Labs on day of discharge: Laboratory Results - last 24 hr 02/04/21 02/04/21 02/04/21 00:09 00:44 00:44 WBC 7.8 RBC 4.42 L Hgb 14.0 Hct 41.3 L MCV 93.4 MCH 31.7 MCHC 33.9 RDW 12.1 Plt Count 311 MPV 10.0 Immature Gran % (Auto) 0.3 Neut % (Auto) 55.4 Lymph % (Auto) 30.5 Roberts % (Auto) 10.0 Eos % (Auto) 3.3 Baso % (Auto) 0.5 Lymph # (Auto) 2.4 Roberts # (Auto) 0.8 Eos # (Auto) 0.3 Baso # (Auto) 0.0 Abs Immat Gran (auto) 0.02 Absolute Neuts (auto) 4.3 Absolute Nucleated RBC 0.000 Nucleated RBC % (auto) 0.0 PT INR Sodium 139 Potassium 4.1 Chloride 105 Carbon Dioxide 24 Anion Gap 14 BUN 19 H Creatinine 1.01 Estim Creat Clear Calc 98.1 Estimated GFR > 60 POC Glucose 116 H Random Glucose 110 Estimat Average Glucose Hemoglobin A1c % Calcium 9.3 Magnesium Total Bilirubin 0.2 AST 15 ALT 15 Alkaline Phosphatase 83 Troponin I High Sens Total Protein 7.0 Albumin 4.1 Urine Color Urine Appearance Urine pH Ur Specific [place] Urine Protein Urine Glucose (UA) Urine Ketones Urine Blood Urine Nitrite Ur Leukocyte Esterase COVID-19 (RYAN) COVID-19 Clin Com 02/04/21 02/04/21 02/04/21 00:44 00:44 00:44 WBC RBC Hgb Hct MCV MCH MCHC RDW Plt Count MPV Immature Gran % (Auto) Neut % (Auto) Lymph % (Auto) Roberts % (Auto) Eos % (Auto) Baso % (Auto) Lymph # (Auto) Roberts # (Auto) Eos # (Auto) Baso # (Auto) Abs Immat Gran (auto) Absolute Neuts (auto) Absolute Nucleated RBC Nucleated RBC % (auto) PT 11.5 INR 1.0 Sodium Potassium Chloride Carbon Dioxide Anion Gap BUN Creatinine Estim Creat Clear Calc Estimated GFR POC Glucose Random Glucose Estimat Average Glucose Hemoglobin A1c % Calcium Magnesium 2.2 Total Bilirubin AST ALT Alkaline Phosphatase Troponin I High Sens < 3.5 Total Protein Albumin Urine Color Urine Appearance Urine pH Ur Specific [place] Urine Protein Urine Glucose (UA) Urine Ketones Urine Blood Urine Nitrite Ur Leukocyte Esterase COVID-19 (RYAN) COVID-[employer] 02/04/21 02/04/21 02/04/21 00:44 02:24 04:55 WBC RBC Hgb Hct MCV MCH MCHC RDW Plt Count MPV Immature Gran % (Auto) Neut % (Auto) Lymph % (Auto) Roberts % (Auto) Eos % (Auto) Baso % (Auto) Lymph # (Auto) Roberts # (Auto) Eos # (Auto) Baso # (Auto) Abs Immat Gran (auto) Absolute Neuts (auto) Absolute Nucleated RBC Nucleated RBC % (auto) PT INR Sodium Potassium Chloride Carbon Dioxide Anion Gap BUN Creatinine Estim Creat Clear Calc Estimated GFR POC Glucose Random Glucose Estimat Average Glucose Hemoglobin A1c % Calcium Magnesium Total Bilirubin AST ALT Alkaline Phosphatase Troponin I High Sens < 3.5 Total Protein Albumin Urine Color STRAW Urine Appearance CLEAR Urine pH 7.5 Ur Specific [place] 1.015 Urine Protein NEG Urine Glucose (UA) NEG Urine Ketones NEG Urine Blood NEG Urine Nitrite NEG Ur Leukocyte Esterase NEG COVID-19 (RYAN) Negative COVID-19 [email or web address] Com See Note 02/04/21 02/04/21 02/04/21 07:31 07:31 07:31 WBC 7.1 RBC 4.61 Hgb 14.2 Hct 42.9 MCV 93.1 MCH 30.8 MCHC 33.1 RDW 12.1 Plt Count 295 MPV 10.1 Immature Gran % (Auto) 0.4 Neut % (Auto) 52.7 Lymph % (Auto) 33.2 Roberts % (Auto) 9.3 Eos % (Auto) 4.0 Baso % (Auto) 0.4 Lymph # (Auto) 2.4 Roberts # (Auto) 0.7 Eos # (Auto) 0.3 Baso # (Auto) 0.0 Abs Immat Gran (auto) 0.03 Absolute Neuts (auto) 3.7 Absolute Nucleated RBC 0.000 Nucleated RBC % (auto) 0.0 PT INR Sodium 140 Potassium 4.0 Chloride 105 Carbon Dioxide 25 Anion Gap 14 BUN 15 Creatinine 0.90 Estim Creat Clear Calc 110.1 Estimated GFR > 60 POC Glucose Random Glucose 105 Estimat Average Glucose 103 Hemoglobin A1c % 5.2 Calcium 8.8 Magnesium Total Bilirubin AST ALT Alkaline Phosphatase Troponin I High Sens Total Protein Albumin Urine Color Urine Appearance Urine pH Ur Specific [place] Urine Protein Urine Glucose (UA) Urine Ketones Urine Blood Urine Nitrite Ur Leukocyte Esterase COVID-19 (RYAN) COVID-19 Clin Com ITS Impressions Head CT 02/04/21 00:11 IMPRESSION: No acute intracranial pathology. Brain MRI 02/04/21 10:34 IMPRESSION: Punctate foci of elevated diffusion signal in the right precentral gyrus suspected to represent small foci of acute ischemia. No other intracranial abnormality is seen. ADDENDUMThe patient does not have symptoms referrable to the focus of signal abnormality described in the original report on the diffusion sequence. The diffusion signal may be artifactual. This result was discussed with Dr. Harper on 02/04/2021 2:41 PM Carotid Doppler Study 02/04/21 10:53 IMPRESSION: 1. RIGHT: Normal right internal carotid artery without atherosclerotic plaque or hemodynamically significant stenosis. 2. LEFT: Normal left internal carotid artery without atherosclerotic plaque or hemodynamically significant stenosis. TTE 02/04/21 Conclusions: - Essentially normal study with grade 1 diastolic dysfunction Discharge Plan Discharge Anticipated Discharge Date/Time: 02/04/21 18:13 Patient Disposition: Home, Self-Care Discharge Diagnosis: transient neurologic deficit Referrals: Physician,Unknown [Primary Care Provider] - 1 Week Discharge Medications: Continued aspirin 81 mg Tablet,Delayed Release (Dr/Ec) 81 mg PO DAILY RF: 0 hydrochlorothiazide 12.5 mg Capsule 12.5 mg PO BID RF: 0 Discharge Orders: Discharge Order (Routine); Ordered 02/04/21 Ordered By: Ally Haynes Diet: advance to usual diet, low fat, low cholesterol and low salt diet Activity on Discharge: As tolerated Stand Alone Forms: Patient Portal Discharge page Other Ambulatory Orders: Lipid Panel (Routine) Timeframe: 1 Day Facility: [facility] - Location: Laboratory Ordered By: Ally Haynes Care Plan Goals: cardiovascular health Health Concerns: possible stroke, ruled out Plan of Treatment: continue HCTZ and aspirin establish primary care as soon as possible. try [facility] for adult primary care: [address], [address] [place] [address] Phone: [phone] Assessment: transient neurologic deficit, stroke ruled out Patient Instructions: Hypertension (DC)
== END 2021-02-04 18:35 | disposition home or self-care (01) | DRG 111 ==
LOC: HO.ED 04:00 → HO.EDOVER 04:30
PROVIDERS: Admitting Provider Hospitalist; Emergency Provider Student in an Organized Health Care Education/Training Program; Visit Provider Family Medicine
DX: R42 Dizziness and giddiness (principal); I69.351 Hemiplegia and hemiparesis following cerebral infarction affecting right dominant side; I10 Essential (primary) hypertension; Z88.0 Allergy status to penicillin; Z20.822 Contact with and (suspected) exposure to COVID-19; Z79.82 Long term (current) use of aspirin; Z79.899 Other long term (current) drug therapy
CPT/HCPCS: 36415; 70450; 70551; 80048; 80053; 81003; 82947; 83036; 83735; 84484; 85025; 85610; 87635; 93005; 93306; 93880; 97162; 99285

== ENCOUNTER 2021-03-22 20:58 | Emergency (ER) | payer MEDICAID, OTHER, SELFPAY ==
--- NOTE | ~2021-03-22 | XR_ITS ---
EXAMINATION: XR CHEST CLINICAL INFORMATION: Cough COMPARISON: 01/08/2021 TECHNIQUE: Frontal view of the chest was obtained. FINDINGS: No significant abnormality is noted involving the heart, lungs, mediastinum, bony thorax or soft tissues. XR/XR chest 1V IMPRESSION: Unremarkable examination.
[2021-03-22 21:37] VITALS: BP 154/84; PULSE 88; RESP 18; TEMP 36.5; O2SAT 96; BMI 27.9
[2021-03-22 22:38] LABS: COVID-19 Test Negative (Negative)
--- NOTE | 2021-03-22 23:15 | ED.URI ---
HPI - URI/Sore Throat General Chief Complaint: Upper Respiratory Symptoms Stated Complaint: cough Time Seen by Provider: 03/22/21 23:14 History of Present Illness HPI Narrative: 50-year-old male presented with coughing upper respiratory symptom that is an ongoing for 2 days. Cough nonproductive any sputum. Patient denies any change in smell or taste. Patient did not receive his coronavirus vaccine. No diarrhea. No vomiting. Patient from home. No chest pain or shortness of breath. Positive minimal sputum. Clear whitish in color. Related Data Home Medications Medication Instructions Recorded Confirmed aspirin 81 mg PO DAILY 01/09/21 02/04/21 hydrochlorothiazide 12.5 mg PO BID 02/04/21 02/04/21 Previous Rx's Medication Instructions Recorded azithromycin See Rx Instructions .ROUTE 03/22/21 .COMPLEX #6 tab ibuprofen 400 mg PO Q6H PRN #20 tab 03/22/21 Allergies Allergy/AdvReac Type Severity Reaction Status Date / Time gluten Allergy Rash Verified 03/22/21 22:26 Penicillins Allergy Rash Verified 03/22/21 22:26 Review of Systems Review of Systems: Constitutional: No Weight loss, No Fever, No Chills, No Night Sweats, No Fatigue, No Malaise ENT/Mouth: No Hearing loss, No Ear Pain, No Nasal Congestion, No Sinus Pain, No Hoarseness, No sore throat, No Rhinorrhea, No Swallowing Difficulty Eyes: No Eye Pain, No Swelling, No Redness, No Foreign Body, No Discharge, No Vision Changes Cardiovascular: No Chest Pain, No SOB, No Dyspnea on Exertion, No Orthopnea, No Edema, No Palpitations Respiratory: Positive Cough, No Sputum, No Wheezing, No Smoke Exposure, No Dyspnea Gastrointestinal: No Nausea, No Vomiting, No Diarrhea, No Constipation, No abdominal Pain, No Hematochezia, No Melena Genitourinary: no irregular bleeding, No Dysuria, No Urinary Frequency, No Hematuria, No Urinary Incontinence, No Urgency, No Flank Pain, No Urinary Flow Changes, No Hesitancy Musculoskeletal: No joint pain, No Myalgias, No Joint Swelling Skin: No Skin Lesions, No rash Neuro: No Weakness, No Numbness, No Paresthesias, No Loss of Consciousness, No Dizziness, No Headache Psych: No Anxiety/Panic, No Depression, No SI/HI/AH/VH, No Social Issues, Heme/Lymph: No Bruising, No Bleeding,No Lymphadenopathy Endocrine: No Polyuria, No Polydipsia, No Temperature Intolerance [facility] Past Medical History Attestation statement: The following information was validated with the patient. Medical History CVA (cerebral vascular accident) Social History Social History Alcohol intake: never Advance Directives: No service: No Current occupational status: unemployed Physical Exam Vital Signs: Vital Signs: Last Vital Signs Temp 97.7 F 03/22/21 21:37 Pulse 88 03/22/21 21:37 Resp 18 03/22/21 21:37 BP 154/84 H 03/22/21 21:37 Pulse Ox 96 03/22/21 21:37 Body Mass Index 27.9 Appearance: Alert. Oriented X3. No acute distress. Eyes: Pupils equal, round and reactive to light. ENT: Pharynx normal. Neck: Normal inspection. Neck supple. No lymph nodes noted. No crepitus CVS: Normal heart rate and rhythm. Pulses normal. Normal S1 and S2 Respiratory: No respiratory distress. Breath sounds normal. No Wheezing. No rales Abdomen: Soft and nontender. No rigidity. No distention. good BS x4 Skin: Skin warm and dry. Normal skin color. Normal skin turgor. Extremities: No lower extremity edema. Neurovascular intact to all extremities. No Lacerations. No Rash Neuro: Oriented X 3. No motor deficit. No sensory deficit. Moving all extermities. No slurred speech MDM - URI/Sore Throat MDM Narrative Medical decision making narrative: O2 sats normal. Patient's COVID test was negative. Will give patient a Z-Dario. Motrin for pain. Close follow-up on an outpatient basis. In stable condition. Lab Data Labs: Lab Results 03/22/21 Range/Units 22:19 COVID-19 (RYAN) Negative (Negative) COVID-19 Clin Com See Note Discharge Plan Discharge Clinical Impression: Upper respiratory infection Patient Disposition: Home, Self-Care Instructions: Acute Bronchitis (ED) Prescriptions: New azithromycin 250 mg tablet See Rx Instructions .ROUTE .COMPLEX Qty: 6 RF: 0 ibuprofen 400 mg tablet 400 mg PO Q6H PRN (Reason: pain) Qty: 20 RF: 0 No Action aspirin 81 mg Tablet,Delayed Release (Dr/Ec) 81 mg PO DAILY RF: 0 hydrochlorothiazide 12.5 mg Capsule 12.5 mg PO BID RF: 0 Referrals: Physician,None [Primary Care Provider] - 2 days
== END 2021-03-22 23:54 | disposition home or self-care (01) ==
PROVIDERS: Emergency Provider Emergency Medicine Emergency Medical Services
DX: J06.9 Acute upper respiratory infection, unspecified (principal); Z20.822 Contact with and (suspected) exposure to COVID-19; Z86.73 Personal history of transient ischemic attack (TIA), and cerebral infarction without residual deficits
CPT/HCPCS: 36415; 71045; 87635; 99283; 99284

== ENCOUNTER 2021-04-17 18:33 | Emergency (ER) | payer MEDICAID, OTHER, SELFPAY ==
[2021-04-17 18:41] VITALS: BP 147/78; PULSE 80; RESP 16; TEMP 37.4; O2SAT 98; BMI 28.7
[2021-04-17 19:16] LABS: IDNOW Serial# 9DD0AD1C; Strep A Nucleic Acid Negative (Negative)
[2021-04-17 19:20] LABS: COVID-19 Test Negative (Negative)
--- NOTE | 2021-04-17 20:04 | ED.URI ---
HPI - URI/Sore Throat General Chief Complaint: Upper Respiratory Symptoms Stated Complaint: sore throat Time Seen by Provider: 04/17/21 19:38 Source: patient Mode of arrival: ambulatory Limitations: no limitations History of Present Illness HPI Narrative: 50-year-old male here with complaints of sore throat, dry cough with body aches since yesterday. No fevers, chills, difficulty swallowing, shortness of breath or chest pain Related Data Home Medications Medication Instructions Recorded Confirmed aspirin 81 mg PO DAILY 01/09/21 02/04/21 hydrochlorothiazide 12.5 mg PO BID 02/04/21 02/04/21 Previous Rx's Medication Instructions Recorded azithromycin See Rx Instructions .ROUTE 03/22/21 .COMPLEX #6 tab ibuprofen 400 mg PO Q6H PRN #20 tab 03/22/21 azithromycin See Rx Instructions .ROUTE 04/17/21 .COMPLEX #6 tab Allergies Allergy/AdvReac Type Severity Reaction Status Date / Time gluten Allergy Rash Verified 03/22/21 22:26 Penicillins Allergy Rash Verified 03/22/21 22:26 Review of Systems Review of Systems: Yes all other systems are reviewed and are negative Constitutional: Constitutional: Reports no additional constitutional complaints, Reports body ache(s), Denies chills, Denies fever(s), Denies headache(s) and Denies weakness Eyes: Eyes: Reports no additional eye complaints and Denies change in vision ENT: Reports system reviewed and no additional complaints, except as documented, Denies dizziness, Denies headache(s), Denies nasal congestion, Denies nasal discharge, Denies neck pain and Reports sore throat Cardiovascular: Cardiovascular: Reports no additional cardiovascular complaints, Denies chest pain, Denies leg edema and Denies dyspnea Respiratory: Respiratory: Reports no additional respiratory complaints, Reports cough and Denies dyspnea Gastrointestinal: Gastrointestinal: Reports no additional gastrointestinal complaints, Denies abdominal pain, Denies diarrhea, Denies nausea and Denies vomiting Genitourinary: Genitourinary: Denies urinary incontinence Musculoskeletal: Musculoskeletal: Reports no additional musculoskeletal complaints, Denies back pain, Denies arthralgias, Denies joint swelling, Denies neck pain, Denies numbness and Denies tingling Integumentary/Breasts: Skin/Breast: Reports system reviewed and no additional complaints, except as docu and Denies rash Neurologic: Denies Abnormal speech present, Denies dizziness, Denies headache(s), Denies numbness, Denies tingling and Denies weakness PMF Past Medical History Attestation statement: The following information was validated with the patient. Source: old records reviewed and nursing notes reviewed Medical History CVA (cerebral vascular accident) Social History Social History Alcohol intake: never Advance Directives: No Advance Directives Information Provided: No service: No Current occupational status: unemployed Physical Exam Vital Signs: Vital Signs: Last Vital Signs Temp 99.3 F 04/17/21 18:41 Pulse 80 04/17/21 18:41 Resp 16 04/17/21 18:41 BP 147/78 H 04/17/21 18:41 Pulse Ox 98 04/17/21 18:41 Body Mass Index 28.7 Const: General: cooperative, healthy appearing, comfortable and no acute distress Orientation/consciousness: patient oriented x3 Limitations: no limitations HENMT: Head: Yes normal to inspection Ears: hearing grossly normal bilaterally and TM's normal bilaterally General nose exam: Normal external nose present Face and sinus: Yes normal facial exam Mouth: Normal oral and palatal mucosa present Throat: Yes posterior oropharynx normal and Yes abnormal tonsil ( bilateral tonsillar swelling, erythema and exudate) Eyes: General: appearance normal, both eyes and all related structures Pupils: Equal, round and reactive pupils present Neck: Neck: Yes normal visual inspection, Yes full ROM, Yes no lymphadenopathy and Yes no meningeal signs Chest: Chest palpation & inspection: normal inspection of the chest Resp: Effort & Inspection: normal respiratory effort Auscultation: clear to auscultation bilaterally Cardio: Rate: regular rate Rhythm: regular rhythm Peripheral pulses: Peripheral pulses 2+ throughout GI: Inspection: Yes normal to inspection Palpation (GI): Soft to palpation and nontender Auscultation: normal bowel sounds Back/Spine/Pelvis: Thoracic/Lumbar Spine: thoracic and lumbar spine normal to inspection Skin: General skin exam: no rashes or lesions noted Neuro: General: patient oriented x3, no meningeal signs, no focal motor deficits and normal sensation to monofilament Cranial nerves: Yes Equal, round and reactive pupils present Cognition (Neuro): normal cognition Speech: No Abnormal speech present Gait exam (Neuro): Normal gait present Motor exam (neuro): 5/5 motor strength present throughout Extrem: General: Yes normal to inspection Course Course Course Narrative: rapid strep and COVID screen from triage negative. Exam is consistent with strep pharyngitis. Will treat with course of antibiotics. Reviewed worrisome signs and symptoms and when to return to the emergency department. Comfortable discharge home. MDM - URI/Sore Throat Medical Records Attestation: I reviewed the patient's medical records. Lab Data Attestation: I reviewed the patient's lab results. Labs: Lab Results 04/17/21 04/17/21 Range/Units 18:55 18:55 COVID-19 (RYAN) Negative (Negative) COVID-19 Clin Com See Note S. pyogenes GrpA NYDIA Negative (Negative) Discharge Plan Discharge Clinical Impression: Pharyngitis Patient Disposition: Home, Self-Care Instructions: Pharyngitis (ED) Additional Instructions: COVID test was negative your strep test was negative however based on your clinical exam we are treating you for presumed infection Motrin or Tylenol for pain or fever increase fluids, rest salt water gargles Prescriptions: New azithromycin 250 mg tablet See Rx Instructions .ROUTE .COMPLEX Qty: 6 RF: 0 No Action aspirin 81 mg Tablet,Delayed Release (Dr/Ec) 81 mg PO DAILY RF: 0 hydrochlorothiazide 12.5 mg Capsule 12.5 mg PO BID RF: 0 azithromycin 250 mg tablet See Rx Instructions .ROUTE .COMPLEX Qty: 6 RF: 0 ibuprofen 400 mg tablet 400 mg PO Q6H PRN (Reason: pain) Qty: 20 RF: 0 Referrals: Physician,Unknown [Primary Care Provider] - 2 days Interventions: ED Discharge Assessment Last Done: 04/17/21 19:48 Discharge Date/Time: 04/17/21 19:50
== END 2021-04-17 19:50 | disposition home or self-care (01) ==
PROVIDERS: Emergency Provider Emergency Medicine Emergency Medical Services
DX: J02.9 Acute pharyngitis, unspecified (principal); Z20.822 Contact with and (suspected) exposure to COVID-19
CPT/HCPCS: 36415; 87635; 87651; 99283

== ENCOUNTER 2021-05-04 21:44 | Emergency (ER) | payer MEDICAID, OTHER, SELFPAY ==
--- NOTE | ~2021-05-04 | XR_ITS ---
EXAMINATION: XR CHEST CLINICAL INFORMATION: Dry cough COMPARISON: 03/22/2021 TECHNIQUE: 2 views of the chest were obtained. FINDINGS: No significant abnormality is noted involving the heart, lungs, mediastinum, bony thorax or soft tissues. XR/XR chest 2V IMPRESSION: Unremarkable examination.
[2021-05-04 22:20] VITALS: BP 141/84; PULSE 80; RESP 18; TEMP 36.6; O2SAT 97; BMI 24.5
[2021-05-04 22:40] LABS: COVID-19 Test Negative (Negative); IDNOW Serial# 9DD0AD1C
--- NOTE | 2021-05-04 23:13 | PC.NURSE ---
at bedside for primary eval.
--- NOTE | 2021-05-04 23:14 | ED_ITS ---
HPI - URI/Sore Throat General Chief Complaint: Upper Respiratory Symptoms Stated Complaint: cough Time Seen by Provider: 05/04/21 23:10 Source: patient Mode of arrival: ambulatory Limitations: no limitations History of Present Illness HPI Narrative: Comes emergency room complaining of dry cough for 1 week. Patient denies shortness of breath, no chest pain. Patient denies any recent contacts that may have been ill. Abdominal pain, no nausea or vomiting, no diarrhea. MD elicited complaint: cough Related Data Home Medications Medication Instructions Recorded Confirmed aspirin 81 mg PO DAILY 01/09/21 02/04/21 hydrochlorothiazide 12.5 mg PO BID 02/04/21 02/04/21 Previous Rx's Medication Instructions Recorded azithromycin See Rx Instructions .ROUTE 03/22/21 .COMPLEX #6 tab ibuprofen 400 mg PO Q6H PRN #20 tab 03/22/21 azithromycin See Rx Instructions .ROUTE 04/17/21 .COMPLEX #6 tab benzonatate [Tessalon Perles] 100 mg PO TID PRN #14 cap 05/04/21 Allergies Allergy/AdvReac Type Severity Reaction Status Date / Time gluten Allergy Rash Verified 03/22/21 22:26 Penicillins Allergy Rash Verified 03/22/21 22:26 Review of Systems Review of Systems: Constitutional : No Weight loss, No Fever, No Chills, No Night Sweats, No Fatigue, No Malaise ENT/Mouth : No Hearing loss, No Ear Pain, No Nasal Congestion, No Sinus Pain, No Hoarseness, No sore throat, No Rhinorrhea, No Swallowing Difficulty Eyes: No Eye Pain, No Swelling, No Redness, No Foreign Body, No Discharge, No Vision Changes Cardiovascular : No Chest Pain, No SOB, No Dyspnea on Exertion, No Orthopnea, No Edema, No Palpitations Respiratory : Complaining of Dry Cough, No Sputum, No Wheezing, No Smoke Exposure, No Dyspnea Gastrointestinal : No Nausea, No Vomiting, No Diarrhea, No Constipation, No abdominal Pain, No Hematochezia, No Melena Genitourinary : no irregular bleeding, No Dysuria, No Urinary Frequency, No Hematuria, No Urinary Incontinence, No Urgency, No Flank Pain, No Urinary Flow Changes, No Hesitancy Musculoskeletal : No joint pain, No Myalgias, No Joint Swelling Skin : No Skin Lesions, No rash Neuro : No Weakness, No Numbness, No Paresthesias, No Loss of Consciousness, No Dizziness, No Headache Psych : No Anxiety/Panic, No Depression, No SI/HI/AH/VH, No Social Issues, Heme/Lymph: No Bruising, No Bleeding,No Lymphadenopathy Endocrine : No Polyuria, No Polydipsia, No Temperature Intolerance [facility] Past Medical History Medical History CVA (cerebral vascular accident) Social History Social History Alcohol intake: never Advance Directives: No Advance Directives Information Provided: Yes service: No Current occupational status: unemployed Physical Exam Vital Signs: Vital Signs: Last Vital Signs Temp 98 F 05/04/21 22:20 Pulse 80 05/04/21 22:20 Resp 18 05/04/21 22:20 BP 141/84 H 05/04/21 22:20 Pulse Ox 97 05/04/21 22:20 Body Mass Index 24.5 Appearance: Alert. Oriented X3. No acute distress. Eyes: Pupils equal, round and reactive to light. ENT: Pharynx normal. Neck: Normal inspection. Neck supple. No lymph nodes noted. No crepitus CVS: Normal heart rate and rhythm. Pulses normal. Normal S1 and S2 Respiratory: No respiratory distress. Breath sounds normal. No Wheezing. No rales Abdomen: Soft and nontender. No rigidity. No distention. good BS x4 Skin: Skin warm and dry. Normal skin color. Normal skin turgor. Extremities: No lower extremity edema.No Lacerations. No Rash Neuro: Oriented X 3. No motor deficit. No sensory deficit. Moving all extermities. No slurred speech. Course Course Course Narrative: Discussed x-ray and a COVID test with the patient's, both negative. Patient likely having viral bronchitis. MDM - URI/Sore Throat Lab Data Labs: Lab Results 05/04/21 Range/Units 22:23 COVID-19 (RYAN) Negative (Negative) COVID-19 Clin Com See Note Imaging Data Chest x-ray: Radiologist's impression: No significant abnormality is noted involving the heart, lungs, mediastinum, bony thorax or soft tissues. XR/XR chest 2V IMPRESSION: Unremarkable examination. Discharge Plan Discharge Clinical Impression: Bronchitis Patient Disposition: Home, Self-Care Instructions: Acute Bronchitis (ED) Additional Instructions: Please follow-up with your primary care physician tomorrow. If you have any worsening or new symptoms, please return to the emergency room or call 911 Prescriptions: New benzonatate [Tessalon Perles] 100 mg capsule 100 mg PO TID PRN (Reason: cough) Qty: 14 RF: 0 No Action aspirin 81 mg Tablet,Delayed Release (Dr/Ec) 81 mg PO DAILY RF: 0 hydrochlorothiazide 12.5 mg Capsule 12.5 mg PO BID RF: 0 azithromycin 250 mg tablet See Rx Instructions .ROUTE .COMPLEX Qty: 6 RF: 0 ibuprofen 400 mg tablet 400 mg PO Q6H PRN (Reason: pain) Qty: 20 RF: 0 azithromycin 250 mg tablet See Rx Instructions .ROUTE .COMPLEX Qty: 6 RF: 0
[2021-05-04] MEDS: Benzonatate 100 MG CAPSULE 200 MG PO (23:35)
== END 2021-05-04 23:38 | disposition home or self-care (01) ==
PROVIDERS: Emergency Provider Emergency Medicine
DX: J40 Bronchitis, not specified as acute or chronic (principal); Z20.822 Contact with and (suspected) exposure to COVID-19; Z86.73 Personal history of transient ischemic attack (TIA), and cerebral infarction without residual deficits
CPT/HCPCS: 36415; 71046; 87635; 99283

== ENCOUNTER 2021-07-10 19:04 | Emergency (ER) | payer MEDICAID, OTHER, SELFPAY ==
--- NOTE | ~2021-07-10 | US_ITS ---
EXAMINATION: US VENOUS ULTRASOUND WITH DOPPLER LOWER EXTREMITY, RIGHT CLINICAL INFORMATION: Edema. Calf pain. COMPARISON: None TECHNIQUE: Ultrasound of the deep veins is performed from the hip to the calf with compression sonography and color and pulse Doppler assessment. Spectral analysis with color-flow imaging is performed. FINDINGS: There is normal venous compression and respiratory variation and augmented flow. The visualized common femoral vein, superficial femoral vein, profunda femoral vein, popliteal vein, and the trifurcation region shows no evidence of deep venous thrombosis. There is no significant popliteal fossa cyst. If the patient's symptoms persist, followup ultrasound in 5 days 7 days might be of value to exclude proximal propagation from a non-visualized calf vein. US/US venous duplex LE RT IMPRESSION: No DVT demonstrated in the right lower extremity.
[2021-07-10 19:56] VITALS: BP 136/72; PULSE 63; RESP 18; TEMP 36.7; O2SAT 98; BMI 26.6
--- NOTE | 2021-07-10 21:06 | ED_ITS ---
HPI - General Adult General Chief complaint: General Medical Stated complaint: LEG PAIN Time Seen by Provider: 07/10/21 21:06 Source: patient Mode of arrival: ambulatory Limitations: no limitations History of Present Illness HPI narrative: 50-year-old male is here today for complaining of right calf pain for the last 5 days. Patient denies any injuries. 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 Patient denies any tingling. Reports of mild bruising to right ankle area. Patient does not remember any injury. Patient reports that the right cough is throbbing at night. Related Data Home Medications Medication Instructions Recorded Confirmed aspirin 81 mg tablet,delayed 81 mg PO DAILY 01/09/21 02/04/21 release hydrochlorothiazide 12.5 mg capsule 12.5 mg PO BID 02/04/21 02/04/21 Previous Rx's Medication Instructions Recorded azithromycin 250 mg tablet See Rx Instructions .ROUTE 03/22/21 .COMPLEX #6 tab ibuprofen 400 mg tablet 400 mg PO Q6H PRN #20 tab 03/22/21 azithromycin 250 mg tablet See Rx Instructions .ROUTE 04/17/21 .COMPLEX #6 tab benzonatate 100 mg capsule 100 mg PO TID PRN #14 cap 05/04/21 (Tessalon Perlmica) ibuprofen 600 mg tablet 600 mg PO Q8H PRN #20 tab 07/10/21 Allergies Allergy/AdvReac Type Severity Reaction Status Date / Time gluten Allergy Rash Verified 07/10/21 19:56 Penicillins Allergy Rash Verified 07/10/21 19:56 Review of Systems Review of Systems: Constitutional : No Weight loss, No Fever, No Chills, No Night Sweats, No Fatigue, No Malaise ENT/Mouth : No Hearing loss, No Ear Pain, No Nasal Congestion, No Sinus Pain, No Hoarseness, No sore throat, No Rhinorrhea, No Swallowing Difficulty Eyes: No Eye Pain, No Swelling, No Redness, No Foreign Body, No Discharge, No Vision Changes Cardiovascular : No Chest Pain, No SOB, No Dyspnea on Exertion, No Orthopnea, No Edema, No Palpitations Respiratory : No Cough, No Sputum, No Wheezing, No Smoke Exposure, No Dyspnea Gastrointestinal : No Nausea, No Vomiting, No Diarrhea, No Constipation, No abdominal Pain, No Hematochezia, No Melena Genitourinary : no irregular bleeding, No Dysuria, No Urinary Frequency, No Hematuria, No Urinary Incontinence, No Urgency, No Flank Pain, No Urinary Flow Changes, No Hesitancy Musculoskeletal : No joint pain, Myalgias, right calf pain No Joint Swelling Skin : No Skin Lesions, No rash Neuro : No Weakness, No Numbness, No Paresthesias, No Loss of Consciousness, No Dizziness, No Headache Yes all other systems are reviewed and are negative PMFSH Past Medical History Medical History CVA (cerebral vascular accident) Social History Social History Alcohol intake: never Advance Directives: No Advance Directives Information Provided: Yes service: No Current occupational status: unemployed Physical Exam Vital Signs: Vital Signs: Last Vital Signs Temp 98.0 F 07/10/21 19:56 Pulse 63 07/10/21 19:56 Resp 18 07/10/21 19:56 BP 136/72 07/10/21 19:56 Pulse Ox 98 07/10/21 19:56 Body Mass Index 26.6 Const: General: healthy appearing, no acute distress and well developed Nutritional Appearance: well nourished Orientation/consciousness: patient oriented x3 HENMT: Head: Yes normal to inspection, Yes normocephalic and Yes atraumatic Neck: Neck: Yes normal visual inspection, Yes full ROM and Yes trachea midline Thyroid: Thyroid normal Resp: Effort & Inspection: normal respiratory effort and able to speak in complete sentences Auscultation: clear to auscultation bilaterally Cardio: Rate: regular rate Rhythm: regular rhythm GI: Inspection: Yes normal to inspection and No distended Palpation (GI): No hepatosplenomegaly present Auscultation: normal bowel sounds : General: Yes no CVA tenderness Back/Spine/Pelvis: Back: no CVA tenderness Skin: General skin exam: elasticity normal, turgor normal and dry skin Neuro: General: patient oriented x3 Course Course Course Narrative: 50-year-old male complaining of foods right calf pain. Patient denies any injury however he does have a mild hematoma to inner malleolus. 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 Patient denies any travels. Denies any shortness of breath. Good popliteal and pedal pulses Reevaluation(s) Reevaluation #1: Ultrasound negative for DVT. Patient will be sent home to follow-up with PCP. Ibuprofen and Tylenol for pain. Medical Decision Making Imaging Data Venous US: Attestation: I personally reviewed and interpreted this imaging study as follows: Radiologist's impression: FINDINGS: There is normal venous compression and respiratory variation and augmented flow. The visualized common femoral vein, superficial femoral vein, profunda femoral vein, popliteal vein, and the trifurcation region shows no evidence of deep venous thrombosis. ? There is no significant popliteal fossa cyst. If the patient's symptoms persist, followup ultrasound in 5 days 7 days might be of value to exclude proximal propagation from a non-visualized calf vein. Discharge Plan Discharge Clinical Impression: Lower leg pain Qualifiers: Laterality: right Qualified Code(s): M79.661 - Pain in right lower leg Patient Disposition: Home, Self-Care Instructions: Leg Pain (ED) Additional Instructions: You were seen here today for complaining of right lower leg pain. We ordered an ultrasound that was negative for blood clots. Please make sure that you rest and keep your leg up. You can take ibuprofen or Tylenol to help with your pain. Please follow-up with the primary care provider in 2-3 days. You may return to emergency department if her symptoms will get worse or if you experience any additional concerns symptoms. Prescriptions: New ibuprofen 600 mg tablet 600 mg PO Q8H PRN (Reason: pain) Qty: 20 RF: 0 No Action aspirin 81 mg Tablet,Delayed Release (Dr/Ec) 81 mg PO DAILY RF: 0 hydrochlorothiazide 12.5 mg Capsule 12.5 mg PO BID RF: 0 azithromycin 250 mg tablet See Rx Instructions .ROUTE .COMPLEX Qty: 6 RF: 0 ibuprofen 400 mg tablet 400 mg PO Q6H PRN (Reason: pain) Qty: 20 RF: 0 benzonatate [Tessalon Perles] 100 mg capsule 100 mg PO TID PRN (Reason: cough) Qty: 14 RF: 0 azithromycin 250 mg tablet See Rx Instructions .ROUTE .COMPLEX Qty: 6 RF: 0 Stand Alone Forms: Work/School Release
== END 2021-07-10 22:46 | disposition home or self-care (01) ==
PROVIDERS: Emergency Provider Internal Medicine
DX: R60.0 Localized edema (principal); M79.661 Pain in right lower leg; M79.604 Pain in right leg; Z79.899 Other long term (current) drug therapy
CPT/HCPCS: 93971; 99283; 99284

== ENCOUNTER 2022-02-07 20:52 | Emergency (ER) | payer MEDICAID, OTHER, SELFPAY ==
--- NOTE | 2022-02-07 | ECG_ITS ---
Test Reason : chest pain Blood Pressure : / mmHG Vent. Rate : 083 BPM Atrial Rate : 083 BPM P-R Int : 160 ms QRS Dur : 088 ms QT Int : 344 ms P-R-T Axes : 033 035 016 degrees QTc Int : 404 ms Normal sinus rhythm Normal ECG When compared with ECG of 04-FEB-2021 00:37, No significant change was found Referred By: Generic ED Physician Electronically Signed By:SHANA HUBBARD
[2022-02-07 21:03] VITALS: BP 134/79; PULSE 85; RESP 16; TEMP 36.9; O2SAT 99; BMI 27.0
[2022-02-07 23:12] VITALS: BP 145/87; PULSE 95; RESP 20; TEMP 37.3; O2SAT 96
[2022-02-07 23:44] LABS: COVID-19 Test Negative (Negative); IDNOW Serial# 55D5AD1C
--- NOTE | 2022-02-07 23:44 | ED.GENADULT ---
HPI - General Adult General Chief complaint: General Medical Stated complaint: chest pain Time Seen by Provider: 02/07/22 23:33 History of Present Illness HPI narrative: 51-year-old male presents today with coughing congestion upper respiratory symptoms going on for 2 days. Patient immunized for COVID x1. Had COVID infection 3 months ago. Positive generalized malaise. No history of diabetes hypertension DC. patient from home. Chest pain only with coughing. Related Data Home Medications Medication Instructions Recorded Confirmed aspirin 81 mg tablet,delayed 81 mg PO DAILY 01/09/21 02/04/21 release hydrochlorothiazide 12.5 mg capsule 12.5 mg PO BID 02/04/21 02/04/21 Previous Rx's Medication Instructions Recorded azithromycin 250 mg tablet See Rx Instructions .ROUTE 03/22/21 .COMPLEX #6 tab ibuprofen 400 mg tablet 400 mg PO Q6H PRN #20 tab 03/22/21 azithromycin 250 mg tablet See Rx Instructions .ROUTE 04/17/21 .COMPLEX #6 tab benzonatate 100 mg capsule 100 mg PO TID PRN #14 cap 05/04/21 (Tessalon Perles) ibuprofen 600 mg tablet 600 mg PO Q8H PRN #20 tab 07/10/21 ondansetron 4 mg disintegrating 4 mg PO TID PRN 5 Days #10 tab 02/08/22 tablet oseltamivir 75 mg capsule (Tamiflu) 75 mg PO BID 5 Days #10 cap 02/08/22 Allergies Allergy/AdvReac Type Severity Reaction Status Date / Time gluten Allergy Rash Verified 07/10/21 19:56 Penicillins Allergy Rash Verified 07/10/21 19:56 Review of Systems Review of Systems: Positive generalized malaise decreased p.o. intake positive coughing upper respiratory symptoms Yes all other systems are reviewed and are negative [facility] Past Medical History Attestation statement: The following information was validated with the patient. Medical History CVA (cerebral vascular accident) Social History Social History Alcohol intake: never Advance Directives: No service: No Current occupational status: unemployed Physical Exam ED Vital Signs: Vital Signs - 24 hr 02/07/22 21:03 02/07/22 23:12 02/08/22 00:14 Temperature 98.4 F 99.2 F Pulse Rate 85 95 94 Respiratory Rate 16 20 25 H Blood Pressure 134/79 145/87 H 134/76 Pulse Oximetry 99 96 96 BMI result Body Mass Index 27.0 Appearance: Alert. Oriented X3. No acute distress. Eyes: Pupils equal, round and reactive to light. ENT: Pharynx normal. Neck: Normal inspection. Neck supple. No lymph nodes noted. No crepitus CVS: Normal heart rate and rhythm. Pulses normal. Normal S1 and S2 Respiratory: No respiratory distress. Breath sounds normal. No Wheezing. No rales Abdomen: Soft and nontender. No rigidity. No distention. good BS x4 Skin: Skin warm and dry. Normal skin color. Normal skin turgor. Extremities: No lower extremity edema. Neurovascular intact to all extremities. No Lacerations. No Rash Neuro: Oriented X 3. No motor deficit. No sensory deficit. Moving all extermities. No slurred speech Medical Decision Making MDM Narrative Medical decision making narrative: Patient's influenza came back positive. Symptoms started approximately 24 hours ago. Will start patient Tamiflu. Zofran for nausea. Follow up on an outpatient basis. In stable condition. Lab Data Labs: Lab Results 02/07/22 02/07/22 Range/Units 23:21 23:47 COVID-19 (RYAN) Negative (Negative) COVID-19 Clin Com See Note Influenza Type A ([facility]) Positive A (Negative) Influenza Type B ([facility]) Negative (Negative) Influenza A & B Note See Note Discharge Plan Discharge Clinical Impression: Influenza Patient Disposition: Home, Self-Care Instructions: Influenza (DC) Prescriptions: New oseltamivir [Tamiflu] 75 mg capsule 75 mg PO BID 5 Days Qty: 10 0RF ondansetron 4 mg tablet,disintegrating 4 mg PO TID PRN (Reason: nausea and vomiting) 5 Days Qty: 10 0RF No Action aspirin 81 mg Tablet,Delayed Release (Dr/Ec) 81 mg PO DAILY 0RF hydrochlorothiazide 12.5 mg Capsule 12.5 mg PO BID 0RF azithromycin 250 mg tablet See Rx Instructions .ROUTE .COMPLEX Qty: 6 0RF Rx Instructions: take 500 mg today (day 1), then 250 mg for 4 days (days 2-5) ibuprofen 400 mg tablet 400 mg PO Q6H PRN (Reason: pain) Qty: 20 0RF benzonatate [Tessalon Perles] 100 mg capsule 100 mg PO TID PRN (Reason: cough) Qty: 14 0RF azithromycin 250 mg tablet See Rx Instructions .ROUTE .COMPLEX Qty: 6 0RF Rx Instructions: take 500 mg today (day 1), then 250 mg for 4 days (days 2-5) ibuprofen 600 mg tablet 600 mg PO Q8H PRN (Reason: pain) Qty: 20 0RF Referrals: Physician,None [Primary Care Provider] -
[2022-02-08 00:12] LABS: Influenza A Positive (Negative); Influenza B2 Negative (Negative)
[2022-02-08 00:14] VITALS: BP 134/76; PULSE 94; RESP 25; O2SAT 96
== END 2022-02-08 00:33 | disposition home or self-care (01) ==
PROVIDERS: Emergency Provider Emergency Medicine Emergency Medical Services
DX: J11.1 Influenza due to unidentified influenza virus with other respiratory manifestations (principal); Z86.73 Personal history of transient ischemic attack (TIA), and cerebral infarction without residual deficits; Z88.0 Allergy status to penicillin
CPT/HCPCS: 87502; 87635; 93005; 99283; 99284

== ENCOUNTER 2023-12-09 14:42 | Emergency (ER) | payer MEDICAID, OTHER, SELFPAY ==
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
[2023-12-09 14:59] VITALS: BP 148/81; PULSE 87; RESP 15; TEMP 36.9; O2SAT 98; BMI 29.4
[2023-12-09] MEDS: Acetaminophen 325 MG TABLET 975 MG PO (15:09)
[2023-12-09 15:10] VITALS: BP 190/100; PULSE 100; O2SAT 97
== END 2023-12-09 17:28 | disposition home or self-care (01) ==
PROVIDERS: Emergency Provider Emergency Medicine; PCP Internal Medicine
DX: S06.0X0A Concussion without loss of consciousness, initial encounter (principal); M25.521 Pain in right elbow; R42 Dizziness and giddiness; R51.9 Headache, unspecified; M54.2 Cervicalgia; R07.89 Other chest pain; M25.511 Pain in right shoulder; V43.52XA Car driver injured in collision with other type car in traffic accident, initial encounter; Y93.9 Activity, unspecified; Y92.410 Unspecified street and highway as the place of occurrence of the external cause; Y99.8 Other external cause status; Z79.899 Other long term (current) drug therapy
CPT/HCPCS: 70450; 71045; 72125; 73030; 73070; 73090; 99283; 99284

== ENCOUNTER 2024-10-28 14:31 | Emergency (ER) | payer MEDICAID, OTHER, SELFPAY ==
--- NOTE | ~2024-10-28 | CT_ITS ---
CLINICAL HISTORY: dizness CT angiography head and neck with contrast. 3D Postprocessing. Comparison: None Findings: CTA head: The intradural vertebral arteries and remaining posterior circulation is widely patent. No large vessel occlusion, aneurysm or dissection. Normal variant A2 segment. No abnormal postcontrast enhancement. CTA neck: Normal branching pattern of the aortic arch. The bilateral common, internal and external carotid arteries are widely patent. The bilateral vertebral arteries are codominant and widely patent. No acute osseous abnormality. 4 mm right upper lobe nodule, axial 1270. Impression: The vasculature of the head and neck is widely patent. No acute intracranial abnormality. 4 mm right upper lobe nodule. A dedicated outpatient noncontrast CT could be considered. This document has been electronically signed by: Malachi Perdue MD on 10/28/2024 18:42:26
[2024-10-28 14:45] VITALS: BP 125/81; PULSE 71; RESP 19; TEMP 36.6; O2SAT 98; BMI 29.4
--- NOTE | 2024-10-28 14:51 | ED_ITS ---
HPI - Dizziness General Chief Complaint: Dizziness Stated Complaint: dizzy Time Seen by Provider: 10/28/24 15:00 Related Data Home Medications ?Medication ?Instructions ?Recorded ?Confirmed aspirin 81 mg tablet,delayed 81 mg PO DAILY 01/09/21 02/04/21 release hydrochlorothiazide 12.5 mg capsule 12.5 mg PO BID 02/04/21 02/04/21 Previous Rx's ?Medication ?Instructions ?Recorded azithromycin 250 mg tablet See Rx Instructions PO .COMPLEX 03/22/21 upper resp infection #6 tabs ibuprofen 400 mg tablet 400 mg PO Q6H PRN pain #20 tabs 03/22/21 azithromycin 250 mg tablet See Rx Instructions PO .COMPLEX #6 04/17/21 tabs benzonatate 100 mg capsule 100 mg PO TID PRN cough #14 caps 05/04/21 (Thiago Michaud) ibuprofen 600 mg tablet 600 mg PO Q8H PRN pain #20 tabs 07/10/21 ondansetron 4 mg disintegrating 4 mg PO TID PRN nausea and 02/08/22 tablet vomiting 5 days #10 tabs oseltamivir 75 mg capsule (Tamiflu) 75 mg PO BID 5 days #10 caps 02/08/22 Allergies Allergy/AdvReac Type Severity Reaction Status Date / Time gluten Allergy Rash Verified 10/28/24 14:48 Penicillins Allergy Rash Verified 10/28/24 14:48 [facility] Past Medical History Medical History CVA (cerebral vascular accident) Social History Social History Alcohol intake: never Advance Directives: No Advance Directives Information Provided: No Do you have a plan to hurt others: No Plan service: No Current occupational status: unemployed Physical Exam 2 Vital Signs: Vital Signs: Last Vital Signs Temp 97.9 F 10/28/24 19:50 Pulse 71 10/28/24 19:50 Resp 17 10/28/24 19:50 BP 145/88 H 10/28/24 19:50 Pulse Ox 95 10/28/24 19:50 O2 Del Method Room Air 10/28/24 19:50 BMI result Body Mass Index 29.4 Course Course Course Narrative: This is an RME: Additional HPI, ROS, PE not included below will be deferred to primary provider. RME assessment and note performed by: Selina Huynh PA-C This is a 54-year-old male, with a history of CVA, who presents emergency department with concerns for intermittent dizziness since yesterday. States he had dizziness several years ago and was diagnosed with a stroke. Patient with dilated right pupil, reactive.EOMI. No other neurologic focal deficits at this time. Patient immediately brought back to the main emergency department, discussed with Dr. Montlavo, who is at bedside assessing patient. >>see note by primary provider, Dr. Montalvo Medications Administered Discontinued Medications Generic Name Dose Route Start Last Admin Trade Name Freq PRN Reason Stop Dose Admin Iohexol 70 ml 10/28/24 17:44 10/28/24 17:45 Iohexol 350 Mg/Ml 100 Ml Infus..Btl IV 10/28/24 17:45 70 ml ONCE ONE Administration Medical Decision Making Lab Data 10/28/24 15:12 10/28/24 15:12 Labs: Lab Results 10/28/24 Range/Units 15:12 WBC 8.3 (4.8-10.8) X10*3/uL RBC 4.78 (4.60-5.80) X10*6/uL Hgb 15.3 (14.0-18.0) g/dl Hct 43.5 (42.0-52.0) % MCV 91.0 (80.0-98.0) fL MCH 32.0 (27.0-33.0) pg MCHC 35.2 (31.0-36.0) g/dl RDW 12.3 (11.0-16.0) % Plt Count 293 (160-400) X10*3/uL MPV 9.6 (9.4-12.4) fL Immature Gran % (Auto) 0.2 (0.0-0.4) % Neut % (Auto) 50.2 (45-73) % Lymph % (Auto) 37.0 (20-40) % [place] % (Auto) 8.9 (2-11) % Eos % (Auto) 3.0 (0-4) % Baso % (Auto) 0.7 (0-2) % Lymph # (Auto) 3.1 (1.2-4.9) X10*3/uL [place] # (Auto) 0.7 (0.1-1.2) X10*3/uL Eos # (Auto) 0.3 (0.0-0.4) X10*3/uL Baso # (Auto) 0.1 (0.0-0.2) X10*3/uL Abs Immat Gran (auto) 0.02 (0.00-0.03) X10*3/uL Absolute Neuts (auto) 4.2 (2.0-8.3) x10*3/uL Absolute Nucleated RBC 0.000 (0.0-0.012) X10*3/uL Nucleated RBC % (auto) 0.0 (0.0-0.2) /100WBC Hold Blue Top SEE NOTE Sodium 140 (135-145) mmol/L Potassium 4.1 (3.3-5.1) mmol/L Chloride 107 (96-108) mmol/L Carbon Dioxide 24 (22-29) mmol/L Anion Gap 13 (12-20) BUN 16 (9-16) mg/dL Creatinine 0.84 (0.5-1.4) mg/dL Estim Creat Clear Calc 117.8 Estimated GFR > 60 Random Glucose 88 (60-115) mg/dL Calcium 9.1 (8.4-10.2) mg/dL Total Bilirubin 0.5 (0.0-1.0) mg/dL AST 40 H (5-37) U/L ALT 63 H (0-40) U/L Alkaline Phosphatase 87 (39-117) U/L Troponin I High Sens < 2.7 (<3.5-35.0) ng/L Total Protein 7.6 (6.5-8.0) g/dL Albumin 4.1 (3.5-5.0) g/dL Discharge Plan Discharge Clinical Impression: Dizziness Patient Disposition: Home, Self-Care Instructions: Dizziness (ED) Additional Instructions: Follow-up with your primary care physician, you have been evaluated today for dizziness your blood work and CT scan of the head and neck with contrast was normal, your symptoms are now better. Please make sure you follow-up with your doctor Prescriptions: No Action aspirin 81 mg Tablet,Delayed Release (Dr/Ec) 81 mg PO DAILY hydrochlorothiazide 12.5 mg Capsule 12.5 mg PO BID azithromycin 250 mg tablet See Rx Instructions .ROUTE .COMPLEX Qty: 6 0RF Rx Instructions: take 500 mg today (day 1), then 250 mg for 4 days (days 2-5) ibuprofen 400 mg tablet 400 mg PO Q6H PRN (Reason: pain) Qty: 20 0RF benzonatate [Tessalon Perles] 100 mg capsule 100 mg PO TID PRN (Reason: cough) Qty: 14 0RF azithromycin 250 mg tablet See Rx Instructions .ROUTE .COMPLEX Qty: 6 0RF Rx Instructions: take 500 mg today (day 1), then 250 mg for 4 days (days 2-5) ibuprofen 600 mg tablet 600 mg PO Q8H PRN (Reason: pain) Qty: 20 0RF oseltamivir [Tamiflu] 75 mg capsule 75 mg PO BID 5 Days Qty: 10 0RF ondansetron 4 mg tablet,disintegrating 4 mg PO TID PRN (Reason: nausea and vomiting) 5 Days Qty: 10 0RF Interventions: ED Discharge Assessment Last Done: 10/28/24 19:50 Discharge Date/Time: 10/28/24 19:51 Print Language: [place]
--- NOTE | 2024-10-28 15:01 | ECG_ITS ---
Test Reason : chest pain Blood Pressure : */* mmHG Vent. Rate : 70 BPM Atrial Rate : 70 BPM P-R Int : 168 ms QRS Dur : 86 ms QT Int : 380 ms P-R-T Axes : 18 14 19 degrees QTcB Int : 410 ms Normal sinus rhythm Normal ECG When compared with ECG of 07-Feb-2022 20:56, No significant change was found Referred By: Boby Montalvo Electronically Signed By: Dawit Malone
--- NOTE | 2024-10-28 15:08 | ED_ITS ---
HPI - Dizziness General Chief Complaint: Dizziness Stated Complaint: dizzy Time Seen by Provider: 10/28/24 15:00 Source: patient Mode of arrival: ambulatory Limitations: no limitations History of Present Illness HPI Narrative: This is a 54 years old the patient presented to the emergency department with a chief complaint of dizziness since yesterday. Symptoms improving now is ambulatory to the emergency department there is no nausea no vomiting. Patient has history of hypertension and in January 2021 and an MRI with the question very small CVA. He take aspirin daily the dizziness is described as more lightheadedness. MD elicited complaint: dizziness Onset (ago): day(s) (1) Timing: gradual onset Severity: mild Description: sense of movement Exacerbating factors: nothing Associated symptoms: denies other symptoms Related Data Home Medications ?Medication ?Instructions ?Recorded ?Confirmed aspirin 81 mg tablet,delayed 81 mg PO DAILY 01/09/21 02/04/21 release hydrochlorothiazide 12.5 mg capsule 12.5 mg PO BID 02/04/21 02/04/21 Previous Rx's ?Medication ?Instructions ?Recorded azithromycin 250 mg tablet See Rx Instructions PO .COMPLEX 03/22/21 upper resp infection #6 tabs ibuprofen 400 mg tablet 400 mg PO Q6H PRN pain #20 tabs 03/22/21 azithromycin 250 mg tablet See Rx Instructions PO .COMPLEX #6 04/17/21 tabs benzonatate 100 mg capsule 100 mg PO TID PRN cough #14 caps 05/04/21 (Thiago Michaud) ibuprofen 600 mg tablet 600 mg PO Q8H PRN pain #20 tabs 07/10/21 ondansetron 4 mg disintegrating 4 mg PO TID PRN nausea and 02/08/22 tablet vomiting 5 days #10 tabs oseltamivir 75 mg capsule (Tamiflu) 75 mg PO BID 5 days #10 caps 02/08/22 Allergies Allergy/AdvReac Type Severity Reaction Status Date / Time gluten Allergy Rash Verified 10/28/24 14:48 Penicillins Allergy Rash Verified 10/28/24 14:48 Review of Systems 2 Constitutional: Constitutional: Reports no additional constitutional complaints Cardiovascular: Cardiovascular: Reports no additional cardiovascular complaints Musculoskeletal: Musculoskeletal: Reports no additional musculoskeletal complaints [facility] Past Medical History Attestation statement: The following information was validated with the patient. [facility] Narrative: Hypertension Medical History CVA (cerebral vascular accident) Social History Social History Alcohol intake: never Advance Directives: No Advance Directives Information Provided: No Do you have a plan to hurt others: No Plan service: No Current occupational status: unemployed Physical Exam 2 Vital Signs: Vital Signs: Last Vital Signs Temp 97.8 F 10/28/24 18:22 Pulse 75 10/28/24 18:22 Resp 16 10/28/24 18:22 BP 138/87 10/28/24 18:22 Pulse Ox 96 10/28/24 18:22 O2 Del Method Room Air 10/28/24 18:22 BMI result Body Mass Index 29.4 He looks well is not toxic-appearing , stroke scale is 0 Const: General: cooperative, comfortable and no acute distress O rientation/consciousness: patient oriented x3 HEENT: Head: Yes normal to inspection General nose exam: Normal external nose present Face and sinus: Yes normal facial exam Mouth: Normal oral and palatal mucosa present Throat: Yes posterior oropharynx normal Neck: Neck: Yes normal visual inspection and Yes full ROM Chest: Chest palpation & inspection: normal inspection of the chest Resp: Effort & Inspection: normal respiratory effort Auscultation: clear to auscultation bilaterally Cardio: Palpation: normal PMI Rate: regular rate GI: Inspection: Yes normal to inspection Palpation (GI): Soft to palpation, not firm and nontender Auscultation: normal bowel sounds Skin: General skin exam: no rashes or lesions noted and elasticity normal Neuro: General: patient oriented x3 NIH Stroke Scale Internal: Initial- Upon Arrival Level of Consciousness: Alert Level of Consciousness Questions: Answers both questions correctly Level of Consciousness Commands: Performs both tasks correctly Best Gaze: Normal Visual: No visual loss Facial Palsy: Normal Motor Arm (Right): No drift Motor Arm (Left): No drift Motor Leg (Right): No drift Motor Leg (Left): No drift Limb Ataxia: Absent Sensory: Normal Best Language: No aphasia Dysarthia: Normal Extinction and Inattention: No abnormality Score: 0 Course Reevaluation(s) Reevaluation #1: The patient was re-examined at this time, he has never exam is normal stroke scale is 0, no dizziness at this time, cerebellar test negative [id number] normal no nystagmus negative skew test. He had a CTA of the head and neck which was normal. At this point I think the patient can be discharged home I do not think he needs an MRI his symptoms are completely resolved. Shared decision- making with the patient is very comfortable with the plan of care we will proceed with discharge Time: 19:34 Medications Administered Discontinued Medications Generic Name Dose Route Start Last Admin Trade Name Freq PRN Reason Stop Dose Admin Iohexol 70 ml 10/28/24 17:44 10/28/24 17:45 Iohexol 350 Mg/Ml 100 Ml Infus..Btl IV 10/28/24 17:45 70 ml ONCE ONE Administration Medical Decision Making Medical Decision Making [facility] Narrative: Patient presented to the ED with dizziness we will get brain imaging Workup negative symptom resolved the he has a normal neuro exam cerebellar test negative including gait/[id number]/nystagmus absent. I do not think he has a central etiology of the dizziness. Differential Diagnosis Differential Diagnoses: The differential diagnosis associated with the presentation includes Viral syndrome/unlikely CVA is now exam is normal [id number] is normal no nystagmus normal skew Admission/Observation Consideration of admission/observation: Escalation of care including admission/observation considered Lab Data [facility] Lab Attestation statement: I reviewed the patient's lab results. 10/28/24 15:12 10/28/24 15:12 Labs: Lab Results 10/28/24 Range/Units 15:12 WBC 8.3 (4.8-10.8) X10*3/uL RBC 4.78 (4.60-5.80) X10*6/uL Hgb 15.3 (14.0-18.0) g/dl Hct 43.5 (42.0-52.0) % MCV 91.0 (80.0-98.0) fL MCH 32.0 (27.0-33.0) pg MCHC 35.2 (31.0-36.0) g/dl RDW 12.3 (11.0-16.0) % Plt Count 293 (160-400) X10*3/uL MPV 9.6 (9.4-12.4) fL Immature Gran % (Auto) 0.2 (0.0-0.4) % Neut % (Auto) 50.2 (45-73) % Lymph % (Auto) 37.0 (20-40) % [place] % (Auto) 8.9 (2-11) % Eos % (Auto) 3.0 (0-4) % Baso % (Auto) 0.7 (0-2) % Lymph # (Auto) 3.1 (1.2-4.9) X10*3/uL [place] # (Auto) 0.7 (0.1-1.2) X10*3/uL Eos # (Auto) 0.3 (0.0-0.4) X10*3/uL Baso # (Auto) 0.1 (0.0-0.2) X10*3/uL Abs Immat Gran (auto) 0.02 (0.00-0.03) X10*3/uL Absolute Neuts (auto) 4.2 (2.0-8.3) x10*3/uL Absolute Nucleated RBC 0.000 (0.0-0.012) X10*3/uL Nucleated RBC % (auto) 0.0 (0.0-0.2) /100WBC Hold Blue Top SEE NOTE Sodium 140 (135-145) mmol/L Potassium 4.1 (3.3-5.1) mmol/L Chloride 107 (96-108) mmol/L Carbon Dioxide 24 (22-29) mmol/L Anion Gap 13 (12-20) BUN 16 (9-16) mg/dL Creatinine 0.84 (0.5-1.4) mg/dL Estim Creat Clear Calc 117.8 Estimated GFR > 60 Random Glucose 88 (60-115) mg/dL Calcium 9.1 (8.4-10.2) mg/dL Total Bilirubin 0.5 (0.0-1.0) mg/dL AST 40 H (5-37) U/L ALT 63 H (0-40) U/L Alkaline Phosphatase 87 (39-117) U/L Troponin I High Sens < 2.7 (<3.5-35.0) ng/L Total Protein 7.6 (6.5-8.0) g/dL Albumin 4.1 (3.5-5.0) g/dL Independent Interpretation I performed an independent interpretation of an: EKG Interpretation: Normal sinus rhythm rate [address]-T changes, this is a normal EKG the EKG was reviewed interpreted by me Radiology Impression Discussion of test interpretation with radiology: I have reviewed the radiologist's reading. External Record Review External record reviewed: Inpatient record Discharge Plan Discharge Clinical Impression: Dizziness Patient Disposition: Home, Self-Care Instructions: Dizziness (ED) Additional Instructions: Follow-up with your primary care physician, you have been evaluated today for dizziness your blood work and CT scan of the head and neck with contrast was normal, your symptoms are now better. Please make sure you follow-up with your doctor Prescriptions: No Action aspirin 81 mg Tablet,Delayed Release (Dr/Ec) 81 mg PO DAILY hydrochlorothiazide 12.5 mg Capsule 12.5 mg PO BID azithromycin 250 mg tablet See Rx Instructions .ROUTE .COMPLEX Qty: 6 0RF Rx Instructions: take 500 mg today (day 1), then 250 mg for 4 days (days 2-5) ibuprofen 400 mg tablet 400 mg PO Q6H PRN (Reason: pain) Qty: 20 0RF benzonatate [Tessalon Perles] 100 mg capsule 100 mg PO TID PRN (Reason: cough) Qty: 14 0RF azithromycin 250 mg tablet See Rx Instructions .ROUTE .COMPLEX Qty: 6 0RF Rx Instructions: take 500 mg today (day 1), then 250 mg for 4 days (days 2-5) ibuprofen 600 mg tablet 600 mg PO Q8H PRN (Reason: pain) Qty: 20 0RF oseltamivir [Tamiflu] 75 mg capsule 75 mg PO BID 5 Days Qty: 10 0RF ondansetron 4 mg tablet,disintegrating 4 mg PO TID PRN (Reason: nausea and vomiting) 5 Days Qty: 10 0RF Print Language: Italian
[2024-10-28 15:17] LABS: Basophils Absolute Auto 0.1 X10*3/uL (0.0-0.2); Basophils Percent Auto 0.7 % (0-2); Eosinophils Absolute Auto 0.3 X10*3/uL (0.0-0.4); Hematocrit 43.5 % (42.0-52.0); Hemoglobin 15.3 g/dl (14.0-18.0); Imm Gran Abs Auto 0.02 X10*3/uL (0.00-0.03); Imm Gran Pct Auto 0.2 % (0.0-0.4); Lymphocytes Absolute Auto 3.1 X10*3/uL (1.2-4.9); MANUAL DIFF FLAG NO; Mean Corpuscular HGB Conc 35.2 g/dl (31.0-36.0); Mean Platelet Volume 9.6 fL (9.4-12.4); Monocytes Absolute Auto 0.7 X10*3/uL (0.1-1.2); Monocytes Percent Auto 8.9 % (2-11); Neutrophils Absolute Auto 4.2 x10*3/uL (2.0-8.3); Neutrophils Percent Auto 50.2 % (45-73); Platelet Count 293 X10*3/uL (160-400); Red Blood Count 4.78 X10*6/uL (4.60-5.80); Red Cell Distribution Width 12.3 % (11.0-16.0); White Blood Count 8.3 X10*3/uL (4.8-10.8)
[2024-10-28 15:33] LABS: Alanine Aminotransferase 63 U/L (0-40); Albumin Level 4.1 g/dL (3.5-5.0); Anion Gap 13 (12-20); Aspartate Amino Transferase 40 U/L (5-37); Bilirubin Total 0.5 mg/dL (0.0-1.0); Blood Urea Nitrogen 16 mg/dL (9-16); Calcium 9.1 mg/dL (8.4-10.2); Carbon Dioxide 24 mmol/L (22-29); Chloride 107 mmol/L (96-108); Creatinine Clr Calc Pharmacy 117.8; Estimated Glomerular Filt Rate > 60; Glucose Random 88 mg/dL (60-115); Potassium 4.1 mmol/L (3.3-5.1); Sodium 140 mmol/L (135-145); Total Protein 7.6 g/dL (6.5-8.0)
--- NOTE | 2024-10-28 15:42 | PC.NURSE ---
patient primarily irish speaking, unable to obtain aerial photograph interpreter at this time on both machines for further assessment. patient does speak some luxembourgish. states he has been feeling intermittently dizzy, reports improvement at this time. hx cva on asa 81mg. denies any chest pain or shortness of breath. IV established, labs obtained and sent. call fabian within reach.
[2024-10-28 15:51] VITALS: BP 129/88; PULSE 74; RESP 14; TEMP 36.6; O2SAT 96
[2024-10-28 15:51] LABS: Alkaline Phosphatase 87 U/L (39-117); Troponin-I High Sensitivity < 2.7 ng/L (<3.5-35.0)
[2024-10-28] MEDS: iohexoL 350 MG/ML 100 ML INFUS..BTL 70 ML IV (17:45)
[2024-10-28 18:22] VITALS: BP 138/87; PULSE 75; RESP 16; TEMP 36.6; O2SAT 96
[2024-10-28 19:50] VITALS: BP 145/88; PULSE 71; RESP 17; TEMP 36.6; O2SAT 95
== END 2024-10-28 19:51 | disposition home or self-care (01) ==
PROVIDERS: Emergency Provider Emergency Medicine; PCP Internal Medicine
DX: R42 Dizziness and giddiness (principal); R29.700 NIHSS score 0; Z79.82 Long term (current) use of aspirin; Z79.899 Other long term (current) drug therapy; Z86.73 Personal history of transient ischemic attack (TIA), and cerebral infarction without residual deficits
CPT/HCPCS: 36415; 70496; 70498; 80053; 84484; 85025; 93005; 99284; 99285; Q9967

== ENCOUNTER → 2024-10-28 15:01 | Outpatient (BNV) | payer MEDICAID, SELFPAY | PROVIDERS: Emergency Provider Emergency Medicine; PCP Internal Medicine; Visit Provider Internal Medicine Cardiovascular Disease | DX: R07.9 Chest pain, unspecified (principal) | CPT/HCPCS: 93010 ==

== ENCOUNTER → 2024-10-28 15:02 | Outpatient (BNV) | payer MEDICAID, SELFPAY | PROVIDERS: Emergency Provider Emergency Medicine; PCP Internal Medicine; Visit Provider Radiology Vascular & Interventional Radiology | DX: R42 Dizziness and giddiness (principal); R91.1 Solitary pulmonary nodule | CPT/HCPCS: 70496; 70498 ==

== ENCOUNTER 2025-07-16 14:30 | Emergency (ER) | payer MEDICAID, OTHER, SELFPAY ==
--- NOTE | ~2025-07-16 | CT_ITS ---
CLINICAL HISTORY: dizziness CT head without contrast Comparison: CT - CT HEAD NECK ANGIOGRAPHY WITH IV CONTRAST - 10/28/24 17:27 EST Findings: No intra-axial mass, midline shift, hydrocephalus, or acute hemorrhage. No significant atrophy-like change or white matter disease. Minimal mucosal thickening in bilateral ethmoid air cells and left maxillary sinus. The orbits are within normal limits. No skull fracture. IMPRESSION: 1. No acute intracranial findings. This document has been electronically signed by: Yulia Fox MD on 07/16/2025 17:36:11
--- NOTE | ~2025-07-16 | XR_ITS ---
EXAMINATION: XR CHEST CLINICAL INFORMATION: Chest pain COMPARISON: 12/09/2023. TECHNIQUE: Frontal view of the chest was obtained. FINDINGS: The cardiac, hilar, and mediastinal contours are normal. The lungs are clear bilaterally. No pneumothorax or effusion. No focal osseous or soft tissue abnormality. XR/XR chest 1V IMPRESSION: No active pulmonary disease. Electronically signed by: Sergey Maier MD 07/16/2025 04:53 PM EDT
[2025-07-16 15:40] VITALS: BP 125/74; PULSE 82; RESP 16; TEMP 36.1; O2SAT 94; BMI 28.4
--- NOTE | 2025-07-16 15:50 | ECG_ITS ---
Test Reason : dizziness Blood Pressure : */* mmHG Vent. Rate : 78 BPM Atrial Rate : 78 BPM P-R Int : 160 ms QRS Dur : 88 ms QT Int : 368 ms P-R-T Axes : 33 29 37 degrees QTcB Int : 419 ms Normal sinus rhythm Normal ECG When compared with ECG of 28-Oct-2024 15:12, No significant change was found Referred By: Sachin Fisher Electronically Signed By: SOURAV BOYD MD
--- NOTE | 2025-07-16 15:51 | ED_ITS ---
HPI - General Adult General Chief complaint: Dizziness Stated complaint: dizziness Time Seen by Provider: 07/16/25 17:42 Source: patient Mode of arrival: ambulatory Limitations: no limitations History of Present Illness ED Provider: Dr. Oakes HPI narrative: This is a 54-year-old male history of hypertension, hyperlipidemia presented hospital today for evaluation of vertiginous symptoms that is worsened with movement patient is also complaining of intermittent left-sided chest pressure when he is exerting himself or working. Patient stated that his pressure-like in sensation. He does not have a primary care doctor. Therefore patient stated this symptoms as worsening therefore he presents to the ER for further evaluation. Related Data Home Medications ?Medication ?Instructions ?Recorded ?Confirmed aspirin 81 mg tablet,delayed 81 mg PO DAILY 01/09/21 0 02/04/21 release hydrochlorothiazide 12.5 mg capsule 12.5 mg PO BID 02/04/21 Previous Rx's ?Medication ?Instructions ?Recorded azithromycin 250 mg tablet See Rx Instructions PO .COM PLEX 03/22/21 upper resp infection #6 tabs ibuprofen 400 mg tablet 400 mg PO Q6H PRN pain #20 t abs 03/22/21 azithromycin 250 mg tablet See Rx Instructions PO .COM PLEX #6 04/17/21 tabs benzonatate 100 mg capsule 100 mg PO TID PRN cough #14 caps 05/04/21 (Thiago Michaud) ibuprofen 600 mg tablet 600 mg PO Q8H PRN pain #20 t abs 07/10/21 ondansetron 4 mg disintegrating 4 mg PO TID PRN nausea and 02/08/22 tablet vomiting 5 days #10 tabs oseltamivir 75 mg capsule (Tamiflu) 75 mg PO BID 5 day s #10 caps 02/08/22 meclizine 25 mg chewable tablet 25 mg PO TID PRN dizzi ness #30 tabs 07/16/25 Allergies Allergy/AdvReac Type Severity Reaction Status Date / Time gluten Allergy Rash Verified 07/16/25 15:47 Penicillins Allergy Rash Verified 07/16/25 15:47 Review of Systems 2 Review of Systems: Pertinent review of systems as mentioned in HPI. All other system otherwise negative. PMFSH Past Medical History [facility] Narrative: Medical history as mentioned in HPI Medical History CVA (cerebral vascular accident) Social History Social History Alcohol intake: never Smoked in Last 30 Days: No Use of substances other than those prescribed or required for medical reasons: No Advance Directives: No Advance Directives Information Provided: No service: No Current occupational status: unemployed Physical Exam ED Exam Exam: General: Pleasant, no distress, interacting appropriately Head: Normacephalic, atraumatic ENT: oral mucosa moist, neck supple, no tracheal deviation Cardiovascular: regular rate, regular rhythm, no murmurs, rubbing, gallops Respiratory: CTAB, no wheeze, rales, rhonchi Gastrointestinal: Soft, non distended, non tender, non guarding Extremities: No limb pain or swelling, no calf tenderness Neurological: Awake and alert, no facial droop noted, no focal neurological deficit. Skin: Warm and dry Psychiatric: Appropriate mood and thoughts Vital Signs: Vital Signs - 24 hr 07/16/25 15:40 Temperature 97 F Pulse Rate 82 Respiratory Rate 16 Blood Pressure 125/74 Pulse Oximetry 94 Oxygen Delivery Method Nasal Cannula BMI result Body Mass Index 28.4 Course Course Course Narrative: RME: 54-year-old male history of hypertension presents to ED dizziness sensation as room spinning for the past couple of months. Patient also states 4 days of chest left-sided chest pressure. Presently vital signs are stable. NIH score is 0. Labs EKG head CT scan ordered Medications Administered Discontinued Medications Generic Name Dose Route Start Last Admin Trade Name Freq PRN Reason Stop Dose Admin Aspirin 324 mg 07/16/25 17:58 07/16/25 18:07 Aspirin 81 Mg Tab.Chew PO 07/16/25 17:59 324 mg ONCE ONE Administration Sodium Chloride 1,000 mls @ 999 mls/hr 07/16/25 18:00 07/16/25 19:30 Ns IV 07/16/25 19:00 Infused .Q1H1M ANN Infusion Meclizine HCl 25 mg 07/16/25 17:58 07/16/25 18:06 Meclizine Hcl 25 Mg Tablet PO 07/16/25 17:59 25 mg ONCE ONE Administration Medical Decision Making Medical Decision Making MDM Narrative: 54-year-old male history of hypertension hyperlipidemia presented hospital today for evaluation of intermittent left-sided chest pressure on exertion along with dizziness that is worsened with movement. We will plan to give patient a bolus IV fluid, meclizine will be given as well. Patient does have a suspicious history. Patient is relatively high risk on heart score. We will obtain a 2nd troponin. Pro BNP will be obtained as well. Chest x-ray is unremarkable. EKG shows normal sinus rhythm. No sign of STEMI. Patient has no focal neurological deficit. I do not think this is stroke. This is may be a component of benign positional peripheral vertigo. Patient's 2nd troponin is negative. We will plan to reassess patient. Patient's 2nd troponin is negative. BNP is not elevated. However patient does have a high heart score. I discussed with the patient I recommend him stay in the hospital for chest pain observation however patient has kindly refuses. Through shared decision-making we will plan to discharge patient home at this time. Patient does not want to stay in the hospital for chest pain observation or stress test. I did offer this to him. He understands the risk. We will discharge patient with primary care doctor referral and referral to the cardiology office for outpatient stress test. Meclizine will be prescribed for his vertigo symptoms. The patient agrees and understands this plan. [place] animal health technician was used via tablet. Differential Diagnosis Differential Diagnoses: The differential diagnosis associated with the presentation includes ACS, STEMI, CAD, vertigo, CVA Lab Data MDM Lab Attestation statement: I reviewed the patient's lab results. 07/16/25 16:00 07/16/25 16:00 Labs: Lab Results 07/16/25 07/16/25 Range/Units 16:00 18:18 WBC 7.7 (4.8-10.8) X10*3/uL RBC 4.54 L (4.60-5.80) X10*6/uL Hgb 14.6 (14.0-18.0) g/dl Hct 41.3 L (42.0-52.0) % MCV 91.0 (80.0-98.0) fL MCH 32.2 (27.0-33.0) pg MCHC 35.4 (31.0-36.0) g/dl RDW 12.2 (11.0-16.0) % Plt Count 305 (160-400) X10*3/uL MPV 9.8 (9.4-12.4) fL Immature Gran % (Auto) 0.3 (0.0-0.4) % Neut % (Auto) 53.0 (45-73) % Lymph % (Auto) 34.8 (20-40) % Turner % (Auto) 9.3 (2-11) % Eos % (Auto) 2.2 (0-4) % Baso % (Auto) 0.4 (0-2) % Lymph # (Auto) 2.7 (1.2-4.9) X10*3/uL Turner # (Auto) 0.7 (0.1-1.2) X10*3/uL Eos # (Auto) 0.2 (0.0-0.4) X10*3/uL Baso # (Auto) 0.0 (0.0-0.2) X10*3/uL Abs Immat Gran (auto) 0.02 (0.00-0.03) X10*3/uL Absolute Neuts (auto) 4.1 (2.0-8.3) x10*3/uL Absolute Nucleated RBC 0.000 (0.0-0.012) X10*3/uL Nucleated RBC % (auto) 0.0 (0.0-0.2) /100WBC Sodium 140 (135-145) mmol/L Potassium 3.8 (3.3-5.1) mmol/L Chloride 107 (96-108) mmol/L Carbon Dioxide 30 H (22-29) mmol/L Anion Gap 7 L (12-20) BUN 21 H (9-16) mg/dL Creatinine 0.99 (0.5-1.4) mg/dL Estim Creat Clear Calc 104.3 Estimated GFR > 60 Random Glucose 115 (60-115) mg/dL Calcium 8.9 (8.4-10.2) mg/dL Total Bilirubin 0.5 (0.0-1.0) mg/dL AST 30 (5-37) U/L ALT 60 H (0-40) U/L Alkaline Phosphatase 89 (39-117) U/L Troponin I High Sens < 2.7 < 2.7 (<3.5-35.0) ng/L NT-Pro-B Natriuret Pep 23.3 20.5 (<300) pg/mL Total Protein 7.2 (6.5-8.0) g/dL Albumin 4.4 (3.5-5.0) g/dL Independent Interpretation I performed an independent interpretation of an: CT Scan Radiology Impression Discussion of test interpretation with radiology: I have reviewed the radiologist's reading. Scores Heart Score History: -0- slightly suspicious ECG: -0- normal Age: -0- < or = 45 Risk factory: -0- no risk factors known Troponin: -0- < or = normal limit Score: 0 Risk: 1.7% Discharge Plan Discharge Clinical Impression: Vertigo, Chest pain Patient Disposition: Home, Self-Care Instructions: Chest Pain (ED), Vertigo (ED) Additional Instructions: Follow up with the primary care doctor. I am worry about basal cell carcinoma on your right eye. Ask cardiology team about a stress test. Call insurance company for offices that may accept your insurance. Prescriptions: New meclizine 25 mg tablet,chewable 25 mg PO TID PRN (Reason: dizziness) Qty: 30 0RF No Action aspirin 81 mg Tablet,Delayed Release (Dr/Ec) 81 mg PO DAILY hydrochlorothiazide 12.5 mg Capsule 12.5 mg PO BID azithromycin 250 mg tablet See Rx Instructions .ROUTE .COMPLEX Qty: 6 0RF Rx Instructions: take 500 mg today (day 1), then 250 mg for 4 days (days 2-5) ibuprofen 400 mg tablet 400 mg PO Q6H PRN (Reason: pain) Qty: 20 0RF benzonatate [Tessalon Perles] 100 mg capsule 100 mg PO TID PRN (Reason: cough) Qty: 14 0RF azithromycin 250 mg tablet See Rx Instructions .ROUTE .COMPLEX Qty: 6 0RF Rx Instructions: take 500 mg today (day 1), then 250 mg for 4 days (days 2-5) ibuprofen 600 mg tablet 600 mg PO Q8H PRN (Reason: pain) Qty: 20 0RF oseltamivir [Tamiflu] 75 mg capsule 75 mg PO BID 5 Days Qty: 10 0RF ondansetron 4 mg tablet,disintegrating 4 mg PO TID PRN (Reason: nausea and vomiting) 5 Days Qty: 10 0RF Referrals: [facility] [Provider Group] [facility] [Provider Group, Internal Medicine] Interventions: ED Discharge Assessment Last Done: 07/16/25 20:55 Discharge Date/Time: 07/16/25 20:57 Print Language: Venezuelan
[2025-07-16 16:11] LABS: MANUAL DIFF FLAG NO
[2025-07-16 16:12] LABS: Hematocrit 41.3 % (42.0-52.0); Hemoglobin 14.6 g/dl (14.0-18.0); Imm Gran Abs Auto 0.02 X10*3/uL (0.00-0.03); Imm Gran Pct Auto 0.3 % (0.0-0.4); Lymphocytes Absolute Auto 2.7 X10*3/uL (1.2-4.9); Mean Corpuscular HGB Conc 35.4 g/dl (31.0-36.0); Mean Corpuscular Hemoglobin 32.2 pg (27.0-33.0); Mean Corpuscular Volume 91.0 fL (80.0-98.0); NRBC Abs Auto 0.000 X10*3/uL (0.0-0.012); NRBC Pct Auto 0.0 /100WBC (0.0-0.2); Platelet Count 305 X10*3/uL (160-400); Red Blood Count 4.54 X10*6/uL (4.60-5.80); White Blood Count 7.7 X10*3/uL (4.8-10.8)
[2025-07-16 16:35] LABS: NT Pro B Type Natriuretic Pept 23.3 pg/mL (<300)
[2025-07-16 16:37] LABS: Troponin-I High Sensitivity < 2.7 ng/L (<3.5-35.0)
[2025-07-16 16:41] LABS: Alanine Aminotransferase 60 U/L (0-40); Albumin Level 4.4 g/dL (3.5-5.0); Alkaline Phosphatase 89 U/L (39-117); Anion Gap 7 (12-20); Aspartate Amino Transferase 30 U/L (5-37); Blood Urea Nitrogen 21 mg/dL (9-16); Calcium 8.9 mg/dL (8.4-10.2); Carbon Dioxide 30 mmol/L (22-29); Chloride 107 mmol/L (96-108); Creatinine Clr Calc Pharmacy 104.3; Estimated Glomerular Filt Rate > 60; Potassium 3.8 mmol/L (3.3-5.1); Sodium 140 mmol/L (135-145); Total Protein 7.2 g/dL (6.5-8.0)
--- OUTSIDE RECORDS SUMMARY | 2025-07-16 18:24 | XMS_ITS | Encounter Summary ---
Author Organization [facility] Address [address] [place] [id number] Care Team Providers Care Embossing Clerk Name Role Phone Unavailable Primary Care Provider Unavailabl e Encounter Details Date Type Department Care Team (Late st Contact Info) Description 07/27/2017 Abstract [facility] [address] [facility] [address] [place] [address] Rubio Serna MD [address] [place] [address] Social History Tobacco Use Types Packs/Day Years Used Date Smoking Tobacco: Never Assessed Sex and Gender Information Value Date Recorded Sex Assigned at Not on file Legal Sex Male 7:47 AM EST Gender Identity Not on file Sexual Orientation Not on file documented as of this encounter Plan of Treatment Not on file documented as of this encounter Visit Diagnoses Not on filedocumented in this encounter
--- OUTSIDE RECORDS SUMMARY | 2025-07-16 18:24 | XMS_ITS | Clinical Summary ---
Author Organization [facility] Address [address] [place] [address] Care Team Providers Care Test Driller Name Role Phone Unavailable Primary Care Provider Unavailabl e Allergies No known active allergies Medications Medication Sig Dispensed Refills Start Date End Date Status aspirin EC 81 MG tablet Take 81 mg by mouth daily. 0 Active carvedilol (COREG) 6.25 MG tablet Take 1 tablet (6.25 mg total) by mouth 2 (two) times a day with meals. 60 tablet 1 01/19/2017 Active hydrOXYzine (ATARAX) 10 MG tablet Take 10 mg by mouth 2 (two) times a day. 0 Active omega-3 acid ethyl esters (LOVAZA) capsule 1 g Take 1 capsule (1 g total) by mouth 2 (two) times a day. 120 capsule 1 02/22/2017 Active Active Problems Problem Noted Date Diagnosed Date Atypical chest pain 02/22/2017 Overview: negative ETT with nuclear imaging: February 2017 at [facility]. EF 70%, normal perfusion at 83% MPHR Hypertriglyceridemia 02/22/2017 Overview: Tg 417, no h/o alcohal intake, normal TFTs, no Diabetes. Syncope 01/19/2017 Overview: Several episodes of syncope till 2010, would have up to 4-5 episodes a year when he would pass out while playing with the child, would witnessed the syncope, find his teeth were clenched, no tonic-clonic movements, but spontaneously recover consciousness in less than 15 minutes, but be tired afterwards. Also lost consciousness and December 2016, was admitted to [place] [address], was diagnosed as having a seizure, however has not taken his seizure medications. Documents pertaining to EEG and other workup at [facility] pending Cardiomyopathy 01/19/2017 Overview: Diagnosed with cardiomyopathy at [facility], when he was admitted in December 2016 for loss of consciousness at which time workup demonstrated seizure. Documents pending. Repeat echocardiogram at [place] pending Essential hypertension 01/19/2017 Social History Tobacco Use Types Packs/Day Years Used Date Smoking Tobacco: Never Assessed Sex and Gender Information Value Date Recorded Sex Assigned at Not on file Gender Identity Not on file Sexual Orientation Not on file Job Start Date Occupation Industry Not on file Not on file Not on file Last Filed Vital Signs Vital Sign Reading Time Taken Comments Blood Pressure 134/81 02/22/2017 3:14 PM EDT Pulse 66 02/22/2017 3:14 PM EDT Temperature - - Respiratory Rate - - Oxygen Saturation 97% 02/22/2017 3:14 PM EDT Inhaled Oxygen Concentration - - Weight 84.8 kg (187 lb) 02/22/2017 3:14 PM EDT Height 180.3 cm (5' 11 ) 02/22/2017 3:14 PM EDT Body Mass Index 26.08 02/22/2017 3:14 PM EDT Plan of Treatment Health Maintenance Due Date Last Done Comments Hepatitis B Vaccines (1 of 3 - 3-dose series) 1972 Hepatitis C Screening 1972 Depression Screening 1984 Preventative Health Evaluation 1990 DTap / Tdap / Td (1 - Tdap) 1991 Colon Cancer Screening (Colonoscopy) 2017 Shingrix-Zoster Vaccine (1 of 2) 2022 COVID-19 Vaccine (2 - 2024-2 6 season) 2025 10/19/2021 Influenza Vaccine (#1) 2025 Pneumococcal Vaccine Aged Out No long er eligible based on patient's age to complete this topic RSV Ped < 20 months Aged Out No longe r eligible based on patient's age to complete this topic
--- OUTSIDE RECORDS SUMMARY | 2025-07-16 18:24 | XMS_ITS | Clinical Summary ---
Author Organization [facility] Address [address] [place] [address] Care Team Providers Care Channeler Name Role Phone Unavailable Primary Care Provider Unavailabl e Source Comments PLEASE NOTE, if this patient is a minor, it may be UNLAWFUL to discuss sensitive information that is contained in these records (such as FAMILY PLANNING, MENTAL HEALTH or SUBSTANCE ABUSE) with the minor patient's parent or other person without the patient's specific authorization.[facility] Medications No known medications Active Problems No known active problems Social History Tobacco Use Types Packs/Day Years Used Date Smoking Tobacco: Never Assessed Social Connections Answer Date Recorded Connectedness 0 06/26/2024 Financial Resource Strain Answer Date R ecorded Financial Resource Strain 0 2023 Stress Answer Date Recorded Stress 0 04/24/2024 Physical Activity Answer Date Recorded Physical Activity 0 04/24/2024 Food Insecurity Answer Date Recorded Food 0 07/06/2024 Transportation Needs Answer Date Record ed Transportation 0 04/24/2024 Housing Stability Answer Date Recorded Housing 0 04/24/2024 Safety and Environment Answer Date [place] rded Safety 0 04/24/2024 Utilities Answer Date Recorded Utilities 0 04/24/2024 Employment Answer Date Recorded Stress 0 06/26/2024 Sex and Gender Information Value Date Recorded Sex Assigned at Not on file Legal Sex Male 11:40 AM PDT Gender Identity Not on file Sexual Orientation Not on file Last Filed Vital Signs Vital Sign Reading Time Taken Comments Blood Pressure 154/96 09/25/2024 12:59 PM EST Pulse 86 09/25/2024 12:59 PM EST Temperature - - Respiratory Rate - - Oxygen Saturation - - Inhaled Oxygen Concentration - - Weight - - Height - - Body Mass Index - - Plan of Treatment Health Maintenance Due Date Last Done Comments Anxiety Screening 1972 Dental Perio Charting 1972 Diabetes Screening 1972 Hepatitis B Screening 1972 Hepatitis C Screening 1972 Lipid Screening 1972 Tobacco Screening 1972 HIV Screening 1987 Imm-Hepatitis B (1 of 3 - 19 + 3-dose series) 1991 CT Colonography 2017 Colonoscopy 2017 Colorectal Cancer Screening 2017 FIT/gFOBT 2017 Fecal DNA 2017 Flexible Sigmoidoscopy 2017 Imm-DTaP/Tdap/Td (2 - Td or Tdap) 11/02/2021 012 Imm-Pneumococcal 50+ (1 of 1 - PCV) 2022 Imm-Zoster, Recombinant (1 of 2) 2022 Alcohol and Drug Screen 2024 Depression Annual Screen 2024 Tff-UEHIB-36 (2 - season) 2025 022 Imm-Influenza (#1) 2025 11/02/2014 Dental BW 08/16/2025 08/14/2024 Dental Examination 08/16/2025 08/14/2024 Dental Prophy 09/13/2025 09/11/2024 Hypertension Screening (#1) 09/25/2025 Dental FMX/Pano 12/02/2029 11/30/2024, 08/14/2024 Procedures Procedure Name Priority Date/Time Associated Diagnosis Comments PANORAMIC RADIOGRAPHIC IMAGE Routine 11/30/2024 1:40 PM EST Complete bony impaction of tooth PROPHYLAXIS - ADULT Routine 09/11/2024 3:00 PM EST Chronic gingivitis, plaque induced INTRAORAL - COMP SERIES OF RADIOGRAPHIC IMAGES Routine 08/14/2024 2:20 PM EST Caries Encounter for dental examination Complete bony impaction of tooth COMP ORAL EVALUATION - NEW/ESTABLISHED PATIENT Routine 08/14/2024 2:20 PM EST Caries Encounter for dental examination from Last 3 Months or Most Recently Relevant to Health Maintenance Insurance [place] MED[place] D[place] [facility] [place] [id number]
--- OUTSIDE RECORDS SUMMARY | 2025-07-16 18:24 | XMS_ITS | Clinical Summary ---
Author Organization [facility] Address [address] [place] [address] Care Team Providers Care Cryogenics Engineer Name Role Phone Carlos Poe MD Primary Care Provider [phone] Allergies Active Allergy Reactions Criticality Noted Date Comments Gluten Rash/Dermatitis Low 11/24/2022 Other, Food Rash/Dermatitis Low 06/15/2016 White bread Penicillins Rash/Dermatitis Low 06/15/2016 Medications aspirin enteric coated (ECOTRIN LOW STRENGTH) 81 MG EC tabletIndications :Essential hypertension Take 1 tablet (81 mg total) by mouth daily. 100 tablet 1 4 Active losartan (COZAAR) 50 MG tabletIndications :Essential hypertension Take 1 tablet (50 mg total) by mouth daily. 90 tablet 1 5 Active OLANZapine (ZyPREXA) 10 MG tabletIndications :Bipolar 1 disorder, mixed (HCC) Take 1 tablet (10 mg total) by mouth nightly. 90 tablet 1 5 Active verapamil (CALAN-SR) 120 MG ER tabletIndications :Essential hypertension Take 1 tablet (120 mg total) by mouth daily. Take with food. Swallow whole. 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 Celiac disease 06/07/2023 Essential hypertension 06/07/2023 Obstructive sleep apnea hypopnea, moderate 06/07 Bipolar 1 disorder, mixed 12/28/2022 Hx of myocardial perfusion scan Normal 10/2021 Right sided numbness 09/20/2018 Preseptal cellulitis of left upper eyelid 2017 TIA (transient ischemic attack) 09/19/2018 History of TIAs Overview (06/16/2016): questionable, normal MRI, possible conversion reaction per sunrise Immunizations Immunization Administration Dates Next Due Covid-19 MRNA Vaccine - Pfizer 12+ (Purple Cap) 10/19/2021 Influenza Inactivated/Split Preservative Free IM 09/20/2018() Family History Medical History Relation Name Comments Stroke Father Relation Name Status Comments Father Social History Tobacco Use Types Packs/Day Years Used Date Smoking Tobacco: Never Smokeless Tobacco: Never Tobacco Cessation:Counseling Given: Not Answered Alcohol Use Standard Drinks/Week Comments No 0 (1 standard drink = 0.6 oz pur e alcohol) PHQ-2 Answer Date Recorded PHQ-2 Total Score 0 05/11/2022 Sex and Gender Information Value Date Recorded Sex Assigned at Not on file Legal Sex Male 2:18 PM EDT Gender Identity Not on file Sexual Orientation Not on file Last Filed Vital Signs Vital Sign Reading Time Taken Comments Blood Pressure 128/84 03/06/2025 11:35 AM EDT Pulse 77 03/06/2025 11:35 AM EDT Temperature 36.3 C (97.3 F) 03/06/2025 11:35 AM EDT Respiratory Rate 16 09/15/2024 2:57 PM EST Oxygen Saturation 96% 03/06/2025 11:35 AM EDT Inhaled Oxygen Concentration - - Weight 96.6 kg (213 lb) 03/06/2025 11:35 AM EDT Height 175.3 cm (5' 9 ) 03/06/2025 11:35 AM EDT Body Mass Index 31.45 03/06/2025 11:35 AM EDT Plan of Treatment Upcoming Encounters Date Type Department Care Team (Late st Contact Info) Description 09/03/2025 2:00 PM EST Office Visit [facility] Department of Internal Medicine [address] [id number] Carlos Poe MD [address] [facility] [place] [address] Health Maintenance Due Date Last Done Comments Hepatitis C Virus Screening 1972 DTaP/Tdap/Td Vaccines (1 - Tdap) 1991 Hepatitis B Vaccines (1 of 3 - 19+ 3-dose series) 1991 Colonoscopy 2017 Pneumococcal Vaccines 50+ (1 of 1 - PCV) 2022 Zoster (Shingles) Vaccine (1 of 2) 2022 Influenza Vaccine 05/11/2025 11/02/2014 COVID-19 Vaccine (2 - season) 06/11/202506/2022 HIV Screening Completed 09/29/2013, 09/29/2013 Procedures Procedure Name Priority Date/Time Associated Diagnosis Comments [facility] HIV 1/2 AG/AB CMIA REFLEX TO CONFIRMATION. Routine 09/29/2013 8:43 AM EST from Last 3 Months or Most Recently Relevant to Health Maintenance Results * HIV 1/2 Ag/Ab Cmia Reflex To Confirmation. (09/29/2013 8:43 AM EST) HIV 1/2 Ag/Ab CMIA Negative Results show no evidence of infection by HIV 1/2. If clinically indicated, repeat CMIA or test by nucleic acid amplification. Performed at [facility] [place], [place] License No. [id number] CLIA No. [id number] SUNQUEST 09/29/2013 8:43 AM EST us Conversion Provider HX LAB Final Res ult SUNQUEST from Last 3 Months or Most Recently Relevant to Health Maintenance Advance Directives * Full Code (Latest Code Status on File) Date Activated Date Inactivated Comments 09/19/2018 11:48 PM 09/06/2019 11:08 PM Care Teams Cryogenics Engineer Relationship Specialty Start Date End Date Carlos Poe MD PCP - General Internal Medicine 05/11/22
--- OUTSIDE RECORDS SUMMARY | 2025-07-16 18:24 | XMS_ITS | Encounter Summary ---
Author Organization [facility] Address [address] [place] [address] Care Team Providers Care Rating Clerk Name Role Phone Carlos Poe MD Primary Care Provider [phone] Encounter Details Date Type Department Care Team (Late st Contact Info) Description 10/30/2024 Scanned Document [facility] EMERGENCY MED SCAN Emergency Medicine, Scan Social History Tobacco Use Types Packs/Day Years Used Date Smoking Tobacco: Never Smokeless Tobacco: Never Alcohol Use Standard Drinks/Week Comments No 0 (1 standard drink = 0.6 oz pur e alcohol) PHQ-2 Answer Date Recorded PHQ-2 Total Score 0 05/11/2022 Sex and Gender Information Value Date Recorded Sex Assigned at Not on file Legal Sex Male 2:18 PM EDT Gender Identity Not on file Sexual Orientation Not on file documented as of this encounter Plan of Treatment Upcoming Encounters Date Type Department Care Team (Late st Contact Info) Description 09/03/2025 2:00 PM EST Office Visit [facility] Department of Internal Medicine [place] [address] [place] [address] Carlos Poe MD [address] [place] [id number] documented as of this encounter Visit Diagnoses Not on filedocumented in this encounter Care Teams Rating Clerk Relationship Specialty Start Date End Date Carlos Poe MD PCP - General Internal Medicine 05/11/22 documented as of this encounter
--- OUTSIDE RECORDS SUMMARY | 2025-07-16 18:24 | XMS_ITS | Encounter Summary ---
Author Organization [facility] Address [address] [place] [address] Care Team Providers Care Party Plan Selling Distributor Name Role Phone Carlos Poe MD Primary Care Provider Encounter Details Date Type Department Care Team (Late st Contact Info) Description 11/16/2023 Scanned Document [facility] Pulmonary, Scan Social History Tobacco Use Types Packs/Day [...] Visit [facility] Department of Internal Medicine [place] [address] [place] [address] Carlos Poe MD [address] [place] [address] [place] [address] documented as of this encounter Visit Diagnoses Not on filedocumented in this encounter Care Teams Party Plan Selling Distributor Relationship Specialty Start Date End Date Carlos Poe MD PCP - General Internal Medicine 05/11/22 documented as of this encounter
--- OUTSIDE RECORDS SUMMARY | 2025-07-16 18:24 | XMS_ITS | Encounter Summary ---
Author Organization [facility] Address [address] [place] [phone] Care Team Providers Care Mine Engineering Supervisor Name Role Phone Unavailable Primary Care Provider Unavailabl e Encounter Details Date Type Department Care Team (Late st Contact Info) Description 12/10/2016 Abstract [facility] [address] [facility] [address] [place] [address] Rubio Serna MD [address] [place] [address] Social History Tobacco Use Types [...]
--- OUTSIDE RECORDS SUMMARY | 2025-07-16 18:24 | XMS_ITS | Encounter Summary ---
Author Organization [facility] Address [address] [place] [address] Care Team Providers Care Assistant Commissioner Name Role Phone Carlos Poe MD Primary Care Provider Encounter Details Date Type Department Care Team (Late st Contact Info) Description 12/15/2023 Scanned Document [facility] PULMONOLGY SCAN Pulmonary, Scan Social History Tobacco [...] Visit [facility] Department of Internal Medicine [place] [address] [place] [address] Carlos Poe MD [address] [place] [address] [place] [address] documented as of this encounter Visit Diagnoses Not on filedocumented in this encounter Care Teams Assistant Commissioner Relationship Specialty Start Date End Date Carlos Poe MD PCP - General Internal Medicine 05/11/22 documented as of this encounter
--- OUTSIDE RECORDS SUMMARY | 2025-07-16 18:24 | XMS_ITS | Clinical Summary ---
Author Organization [facility] it Address [address] [place] [address] Care Team Providers Care Gas Line Servicer Name Role Phone Unavailable Primary Care Provider Unavailabl e Immunizations Immunization Administration Dates Next Due Pfizer SARS-CoV-2 COVID-19, mRNA, LNP-S, preservative free 10/19/2021 Social History Tobacco Use Types Packs/Day Years Used Date Smoking Tobacco: Never Assessed Sex and Gender Information Value Date Recorded Sex Assigned at Not on file Legal Sex Male 2:25 AM EST Gender Identity Not on file Sexual Orientation Not on file Plan of Treatment Health Maintenance Due Date Last Done Comments Colorectal Cancer Screening: Colonoscopy 1972 DTaP,Tdap,and Td Vaccines (1 - Tdap) 1991 Hepatitis B Vaccines (1 of 3 - 19+ 3-dose series) 1991 Cholesterol Screening (Lipid Panel) 09/13/2022 HIV Screening 09/13/2022 Hepatitis C Screening 09/13/2022 Social Influencers of Health Screening 09/13/2022 Hypertension/CHF/CAD Annual BMP Blood Test 09/29/2022 Pneumococcal Vaccine: 50+ Ye ars (1 of 1 - PCV) 2022 Zoster Vaccines (1 of 2) 2022 Depression Screening 2024 COVID-19 Vaccine (2 - 2024-2 6 season) 2025 10/19/2021 Influenza Vaccine (#1) 2025 RSV Immunization Adult Patie nts (1 - 1-dose 75+ series) 2047 HIB Vaccines Aged Out No longer eligi ble based on patient's age to complete this topic HPV Vaccines Aged Out No longer eligi ble based on patient's age to complete this topic Hepatitis A Vaccines Aged Out No long er eligible based on patient's age to complete this topic IPV Vaccines Aged Out No longer eligi ble based on patient's age to complete this topic MMR Vaccines Aged Out No longer eligi ble based on patient's age to complete this topic Meningococcal ACWY Vaccine Aged Out N o longer eligible based on patient's age to complete this topic Meningococcal B Vaccine Aged Out No l onger eligible based on patient's age to complete this topic RSV Immunization Patients Un yusra 20 months Aged Out No longer eligible b ased on patient's age to complete this topic Varicella Vaccines Aged Out No longer eligible based on patient's age to complete this topic
--- OUTSIDE RECORDS SUMMARY | 2025-07-16 18:24 | XMS_ITS | Encounter Summary ---
Author Organization [facility] Address [address] [place] [address] Care Team Providers Care Spring Bender Name Role Phone Carlos Poe MD Primary Care Provider [phone] Encounter Details Date Type Department Care Team (Late st Contact Info) Description 02/22/2024 Scanned Document [facility] PRIMARY CARE SCAN Primary Care, Scan Social History Tobacco Use Types Packs/Day [...] Visit [facility] Department of Internal Medicine [place] [address] [place] [address] Carlos Poe MD [address] [place] [phone] documented as of this encounter Visit Diagnoses Not on filedocumented in this encounter Care Teams Spring Bender Relationship Specialty Start Date End Date Carlos Poe MD PCP - General Internal Medicine 05/11/22 documented as of this encounter
--- OUTSIDE RECORDS SUMMARY | 2025-07-16 18:24 | XMS_ITS | Encounter Summary ---
Author Organization [facility] Address [address] [place] [address] Care Team Providers Care Gravure Press Operator Name Role Phone Carlos Poe MD Primary Care Provider [phone] Encounter Details Date Type Department Care Team (Late st Contact Info) Description 03/31/[address] [facility] [place] [facility] Pulmonary [place] [address] [facility] [address] [place] [phone] Pulmonary, Scan Social History Tobacco Use Types [...] Description 09/03/2025 2:00 PM EST Office Visit [facility] Department of Internal Medicine [address] [phone] Carlos Poe MD [address] [place] [phone] documented as of this encounter Visit Diagnoses Not on filedocumented in this encounter Care Teams Gravure Press Operator Relationship Specialty Start Date End Date Carlos Poe MD PCP - General Internal Medicine 05/11/22 documented as of this encounter
--- OUTSIDE RECORDS SUMMARY | 2025-07-16 18:24 | XMS_ITS | Clinical Summary ---
Author Organization [address] Address [address] [place] [phone] Phone Care Team Providers Care It Risk Advisor Name Role Phone Unavailable Primary Care Provider Unavailabl e Social History Tobacco Use Types Packs/Day Years Used Date Smoking Tobacco: Never Assessed Sex and Gender Information Value Date Recorded Sex Assigned at Not on file Legal Sex Male 7:47 AM EST Gender Identity Not on file Sexual Orientation Not on file Plan of Treatment Health Maintenance Due Date Last Done Comments HIV screening 1985 Hepatitis C screening 1990 Tetanus adult (Td q 10,TDAP once) 1992 Lipid disorder screening 2012 Colon cancer screening, Colonoscopy 2017 Diabetes screening 2017 Pneumococcal Vaccine (50+ ye ars) (1 of 1 - PCV) 2022 Shingles vaccine (Shingrix) (1 of 2 - Shingrix (RZV) 2 Dose Standard Series) 2022 Influenza vaccine 05/11/2025 Covid-19 vaccine series ( - season) 2025 RSV Immunization (1 - 1-dose 75+ series) 2047 Meningococcal B Vaccine Aged Out No l onger eligible based on patient's age to complete this topic Meningococcal Vaccine Aged Out No char nan eligible based on patient's age to complete this topic
--- OUTSIDE RECORDS SUMMARY | 2025-07-16 18:24 | XMS_ITS | Encounter Summary ---
Author Organization [facility] Address [address] [place] [address] Care Team Providers Care All Around Presser Name Role Phone Carlos Poe MD Primary Care Provider [phone] Encounter Details Date Type Department Care Team (Late st Contact Info) Description 04/24/2024 Scanned Document [facility] [address] [place] [address] Pulmonary, Scan Social History Tobacco Use Types [...] Description 09/03/2025 2:00 PM EST Office Visit [facility] Department of Internal Medicine [address] [phone] Carlos Poe MD [address] [place] [phone] documented as of this encounter Visit Diagnoses Not on filedocumented in this encounter Care Teams All Around Presser Relationship Specialty Start Date End Date Carlos Poe MD PCP - General Internal Medicine 05/11/22 documented as of this encounter
--- OUTSIDE RECORDS SUMMARY | 2025-07-16 18:24 | XMS_ITS ---
Author Name [facility] Organization Unknown History of Medication Use Medication Directions Dispensed Refills Start Date End Date Stat us losartan (COZAAR) 50 MG tablet Take 1 tablet (50 mg total) by mouth daily. 09/28/2022 active OLANZapine (ZyPREXA) 10 MG tablet Take 1 tablet (10 mg total) by mouth nightly. 09/28/2022 active aspirin enteric coated (ECOTRIN LOW STRENGTH) 81 MG EC tablet Take 1 tablet (81 mg total) by mouth daily. active Allergies Allergen Reaction Severity Comment Documented Date Source Statu s GLUTEN RASH/DERMATITIS 11/24/2022 [facility] activ e PENICILLINS RASH/DERMATITIS 06/15/2016 [facility] a ctive OTHER, FOOD RASH/DERMATITIS White bread CCT Problems Problem Status Onset Date Problem Type Date of Resoluti on Source TIA (transient ischemic attack) active 2018-09-19 ProblemAct [facility] Bipolar 1 disorder, mixed active 2022-12-28 [facility] Right sided numbness active 2018-09-20 ProblemAct [facility] Preseptal cellulitis of left upper eyelid active 2018-09-20 ProblemAct [facility] History of TIAs active ProblemAct [facility] Immunizations Vaccine Date Source Lot Number Status Covid-19 MRNA Vaccine - Pfiz er 12+ (Purple Cap) 10/19/2021 [facility] [id number] completed Influenza Inactivated/Split Preservative Free IM 09/20/2018 [facility] completed Encounters Encounter Type Encounter Reason Primary Diagnosis Location Date Ambulatory Essential (primary) hypertension Essential (primary) hypertension [facility] 03/06/2025 Ambulatory Essential (primary) hypertension Essential (primary) hypertension [facility] 09/15/2024 Ambulatory Essential (primary) hypertension Essential (primary) hypertension [facility] 07/24/2024 Ambulatory Essential (primary) hypertension Essential (primary) hypertension [facility] 12/20/2023 Ambulatory [facility] 09/30/20 Ambulatory Obstructive sleep apnea (adult) (pediatric) Obstructive sleep apnea (adult) (pediatric) [facility] 06/07/2023 Ambulatory [facility] 02/01/2023 Ambulatory Essential (prima ry) hypertension [facility] 12/28/2022 Ambulatory [facility] 11/24/2022 Ambulatory Essential (prima ry) hypertension [facility] 09/28/2022 Ambulatory Bipolar disorder , current episode mixed, unspecified [facility] 08/14/2022 Ambulatory Bipolar disorder , current episode mixed, unspecified [facility] 05/11/2022 Care Team Organization Name Specialty Phone Email Start Date End [facility] [employer] [facility] 03/06/2025 04/04/2025 [facility] 10/06/2023 04/24/2025 [facility] 09/30/2023 1210/2022 [facility] Kacie Esquivel Primary Care 02/01/2023 06/15/2024 [facility] 02/01/2023 02/01/2023 [facility] Carlos Poe [facility] 08/14/2022 [facility] Primary Care 05/11/2022 08/14/2022
--- OUTSIDE RECORDS SUMMARY | 2025-07-16 18:24 | XMS_ITS | Clinical Summary ---
Author Organization [facility] Address [address] [place] [address] Care Team Providers Care Bartender Helper Name Role Phone Alvin Hester Primary Care Provider Unav ailable Social History Tobacco Use Types Packs/Day Years Used Date Smoking Tobacco: Never Assessed Sex and Gender Information Value Date Recorded Sex Assigned at Not on file Legal Sex Male 3:26 PM EDT Gender Identity Not on file Sexual Orientation Not on file Plan of Treatment Health Maintenance Due Date Last Done Comments Hepatitis C Screening 1972 DTaP/Tdap/Td (1 - Tdap) 1990 Hep B (1 of 3 - 19+ 3-dose series) 1991 Colon Cancer Screening 2017 Pneumococcal 50+ years (1 of 1 - PCV) 2022 Zoster (Shingrix) (1 of 2) 2022 COVID-19 Vaccine ( - 2023-2 5 season) 2025 Influenza (#1) 2025 HPV Vaccine (No Doses Required) Completed Hep A Aged Out No longer eligi ble based on patient's age to complete this topic Hib Aged Out No longer eligi ble based on patient's age to complete this topic Meningococcal ACWY Aged Out No longer eligible based on patient's age to complete this topic Care Teams Bartender Helper Relationship Specialty Start Date End Date Alvin Hester PCP - General 05/17/23
[2025-07-16 18:44] LABS: NT Pro B Type Natriuretic Pept 20.5 pg/mL (<300)
[2025-07-16 18:45] LABS: Troponin-I High Sensitivity < 2.7 ng/L (<3.5-35.0)
[2025-07-16 20:55] VITALS: BP 117/80; PULSE 86; RESP 15; TEMP 36.1; O2SAT 95
== END 2025-07-16 20:57 | disposition home or self-care (01) ==
PROVIDERS: Physician Assistant; Emergency Provider Student in an Organized Health Care Education/Training Program
DX: R07.89 Other chest pain (principal); R42 Dizziness and giddiness; I10 Essential (primary) hypertension; E78.5 Hyperlipidemia, unspecified
CPT/HCPCS: 36415; 70450; 71045; 80053; 83880; 84484; 85025; 93005; 96360; 99285

== ENCOUNTER → 2025-07-16 15:50 | Outpatient (BNV) | payer SELFPAY | PROVIDERS: Emergency Provider Student in an Organized Health Care Education/Training Program; Visit Provider Internal Medicine Cardiovascular Disease | DX: R42 Dizziness and giddiness (principal) | CPT/HCPCS: 93010 ==

== ENCOUNTER → 2025-07-16 15:52 | Outpatient (BNV) | payer SELFPAY | PROVIDERS: Visit Provider Radiology Diagnostic Radiology | DX: R42 Dizziness and giddiness (principal); R07.89 Other chest pain | CPT/HCPCS: 70450; 71045 ==